=== PATIENT | male | born 1950 | race Caucasian/White ===

== ENCOUNTER → 2017-07-01 | Day surgery (SDC) | payer MEDICARE, OTHER ==
[~2017-07-01] MED LIST: LIDOCAINE 2% INJ 100 MG/5 ML SDV (FOR ANES.) As Ordered; PROPOFOL 200 MG/20 ML VIAL As Ordered
[2017-07-01] MEDS: LR 1,000 ML IV (07:30)
== END | disposition home or self-care (01) ==
LOC: M OPP 07:27
DX: Z12.11 Encounter for screening for malignant neoplasm of colon (principal); Z86.010 Personal history of colon polyps; K57.30 Diverticulosis of large intestine without perforation or abscess without bleeding; Q43.8 Other specified congenital malformations of intestine; E78.5 Hyperlipidemia, unspecified; N40.1 Benign prostatic hyperplasia with lower urinary tract symptoms; Z79.899 Other long term (current) drug therapy
CPT/HCPCS: G0105

== ENCOUNTER → 2018-01-28 | Outpatient (REF) | payer MEDICARE, OTHER | LOC: M SMT 13:33 | DX: R97.20 Elevated prostate specific antigen [PSA] (principal); Z79.899 Other long term (current) drug therapy | CPT/HCPCS: 87086 ==

== ENCOUNTER → 2018-04-29 | Outpatient (CLI) | payer MEDICARE, OTHER | LOC: M LAB 08:57 | DX: R97.20 Elevated prostate specific antigen [PSA] (principal) | CPT/HCPCS: 84154 ==

== ENCOUNTER 2018-07-09 15:56 | Emergency (ER) | payer MEDICARE, OTHER ==
[~2018-07-09] VITALS: Ht 177.8 cm; Wt 79.5 kg
[2018-07-09 15:56] VITALS: BP 145/72
[~2018-07-09 15:56] MED LIST changes: +ATOR1TAB21 PO; -LIDOCAINE 2% INJ 100 MG/5 ML SDV (FOR ANES.) As Ordered; +MULT1TAB10 PO; -PROPOFOL 200 MG/20 ML VIAL As Ordered; +VIAG100T PO
[2018-07-09] MEDS ORDERED: FINA5TAB2 PO (16:07)
[2018-07-09] MEDS ORDERED: ALEV1TAB PO (16:07)
[2018-07-09] MEDS ORDERED: TAMS1CAP17 PO (16:07)
[2018-07-09] MEDS ORDERED: KETOROLAC TROMETHAMINE 10 MG TAB PO ONE (17:45)
[2018-07-09] MEDS ORDERED: CYCLOBENZAPRINE 10 MG TAB PO ONE (17:45)
[2018-07-09] MEDS ORDERED: CYCL10TA PO (17:59)
[2018-07-09] MEDS ORDERED: KETO10TAB PO (17:59)
== END 2018-07-09 18:26 | disposition home or self-care (01) ==
LOC: M ED 15:56
DX: M62.830 Muscle spasm of back (principal); E78.00 Pure hypercholesterolemia, unspecified; N40.0 Benign prostatic hyperplasia without lower urinary tract symptoms; Z79.899 Other long term (current) drug therapy

== ENCOUNTER → 2018-07-15 | Outpatient (CLI) | payer MEDICARE, OTHER ==
[~2018-07-15] MED LIST changes: +ALEV1TAB PO; +CYCL10TA PO; +FINA5TAB2 PO; +KETO10TAB PO; +TAMS1CAP17 PO
--- NOTE | 2018-07-15 11:29 | REP ---
Lumbar spine series: Five views. History: Dorsalgia. The patient reports left SI joint pain. Comparison lumbar spine radiographs are from October 15, 2005. There is also a comparison KUB done during a barium enema from 2011. Findings: There are surgical clips in right upper quadrant consistent with previous cholecystectomy. There is a dextroconvex curve in the lumbar spine and a levoconvex curve at the thoracolumbar junction. There is a new lytic lesion involving the right side of the vertebral body at the L1 level including the right pedicle. There is partial collapse of the L1 vertebral body with approximately 60-70% loss of anterior vertebral body height. No other bony destructive lesion is seen. Pedicles and posterior elements are otherwise intact. There is mild disc space narrowing at L4-5 with early spurring. Sacrum and SI joints appear intact. There is some vascular calcification. Psoas margins are symmetric. Impression: Bony destructive lesion in the L1 vertebral body with partial collapse. New since 2011. Recommend CT scanning of the lumbar spine and radionuclide bone scan for further evaluation. Electronically Signed by Navneet Koch MD 07/15/2018 03:21 P
== END ==
LOC: M WUC 09:29
PROVIDERS: ATTEND Internal Medicine
DX: M54.9 Dorsalgia, unspecified (principal)

== ENCOUNTER → 2018-08-01 | Outpatient (REF) | payer MEDICARE, OTHER ==
[~2018-08-01] MED LIST changes: +D32000TA PO; +FISH5CAP PO; +KELP100T PO; +OXYC1TAB23 PO
[2018-08-02 12:00] LABS: URINE TOTAL PROTEIN 12.2 MG/DL (0-12)
[2018-08-03 11:35] LABS: TOTAL PROTEIN 24 HOUR URINE 146.4 MG/24HR (50-150)
== END ==
LOC: M LAB REF 07:00
PROVIDERS: ATTEND Internal Medicine Medical Oncology
DX: C79.51 Secondary malignant neoplasm of bone (principal)

== ENCOUNTER → 2018-08-03 | Outpatient (CLI) | payer MEDICARE, OTHER ==
[~2018-08-03] MED LIST changes: +DECA4TAB PO; +GASTROGRAFIN SOLUTION 30ML (Q9963) As Ordered ONE; +ISOVUE-370 76% 125ML VIAL (Q9967 PER ML) As Ordered ONE; +PROT20TA11 PO
--- NOTE | 2018-08-03 13:10 | REP ---
CT CHEST WITH IV CONTRAST: TECHNIQUE: Axial contrast enhanced images from the thoracic inlet to the upper abdomen using 100 mL Isovue 370 intravenous contrast material with multiplanar reformations. Relatively large left chest wall mass is seen with destruction of the anterolateral left 6th rib. The mass measures 7.7 x 5.2 cm. It protrudes into the left pleural space. It demonstrates heterogeneous enhancement. There is no axillary, mediastinal, or hilar adenopathy. The heart is normal in size. There is no thoracic aortic aneurysm or dissection. There is no pleural or pericardial effusion. There is mild bronchiectasis in the lungs particularly in the lower lobes. There is a calcified granuloma in the right middle lobe. Note is made of lytic destruction of the L1 vertebral body with collapse as seen on prior CT of 07/21/2018. No other definite osseous lesions are seen. IMPRESSION: Large left chest wall mass with destruction of the left anterolateral 6th rib. This mass protrudes into the left pleural space. It measures 7.7 x 5.2 cm. Lytic destruction and collapse of the L1 vertebral body as seen on prior study of 07/21/2018. No other evidence of mass or adenopathy. Electronically Signed by Alonso Clement MD 08/05/2018 11:45 A
--- NOTE | 2018-08-03 13:46 | REP ---
CT ABDOMEN AND PELVIS WITH ORAL AND IV CONTRAST: TECHNIQUE: Axial contrast enhanced images from the lung bases to the pubic symphysis using 100 mL Isovue 370 intravenous contrast material with multiplanar reformations. The liver demonstrates multiple hypodense nodules which are nonspecific. They are scattered throughout the right and left lobes. The largest is inferiorly located in the right lobe measuring 1.6 cm in diameter. The others are more superiorly located in the right and left lobes and are subcentimeter in diameter. These do not appear to represent cysts, but may represent hemangiomas or other solid nodules. There are tiny calcified granulomas in the spleen. The adrenals, pancreas, and kidneys appear unremarkable. There is no adenopathy in the abdomen or pelvis. There are mild atherosclerotic calcifications of the abdominal aorta without aneurysm. There is no free air or free fluid. I see no bowel wall thickening. No pelvic mass is seen. Prostate is enlarged. It impressed upon the base of the bladder without other definite bladder abnormality. There are lytic lesions in the iliac bones, more so on the left than on the right. The largest oval lytic lesion in the left iliac bone measures 2.8 x 1.4 cm. Again noted is lytic destruction and collapse of the L1 vertebral body as seen on prior CT of 07/21/2018. Patient has had a cholecystectomy. I do not see biliary dilatation. There is sigmoid diverticulosis without acute diverticulitis. IMPRESSION: Nonspecific liver nodules, with six identified, the largest measures 1.6 cm in diameter located in the inferior right lobe of the liver. These do not appear to represent cysts. Further evaluation could be made with dynamic MRI of the liver with and without contrast. No adenopathy. Lytic lesions involving the iliac bones more so on the left than on the right. Again noted is lytic destruction and collapse of the L1 vertebral body as seen on CT of 07/21/2018. Electronically Signed by Alonso Clement MD 08/05/2018 11:47 A
== END ==
LOC: M RAD 10:10
PROVIDERS: ATTEND Internal Medicine Medical Oncology
DX: M89.8X0 Other specified disorders of bone, multiple sites (principal); C79.51 Secondary malignant neoplasm of bone; C80.1 Malignant (primary) neoplasm, unspecified; R91.8 Other nonspecific abnormal finding of lung field; R93.2 Abnormal findings on diagnostic imaging of liver and biliary tract
CPT/HCPCS: 71260; 74177; Q9963; Q9967

== ENCOUNTER → 2018-08-04 | Outpatient (CLI) | payer MEDICARE, OTHER ==
[~2018-08-04] MED LIST changes: -DECA4TAB PO; -GASTROGRAFIN SOLUTION 30ML (Q9963) As Ordered ONE; -ISOVUE-370 76% 125ML VIAL (Q9967 PER ML) As Ordered ONE; +LIDOCAINE 1% MDV 20ML VIAL As Ordered ONE; -PROT20TA11 PO
--- NOTE | 2018-08-04 19:42 | REP ---
ULTRASOUND GUIDED LEFT CHEST WALL MASS BIOPSY The procedure was performed under the direct supervision of Dr. Koch. The patient has a history of a large left chest wall mass with destruction of the left anterolateral sixth rib seen on a previous CT scan dated 08/03/2018. The risks and benefits of the procedure were explained to the patient and informed consent was obtained. The left chest wall mass was localized using ultrasound guidance. The skin was prepped and draped in a sterile fashion. 1% lidocaine was used as a local anesthetic. Using ultrasound guidance a 19/20 gauge coaxial needle biopsy system was inserted and advanced into the mass. Five core biopsy samples were obtained and sent to lab. The patient tolerated the procedure well and there were no immediate complications. After the appropriate amount of monitored convalescence the patient was discharged from the department. Reviewed by TORSTEN Zavala 08/04/2018 03:48 P Electronically Signed by Navneet Koch MD 08/04/2018 07:33 P
== END ==
LOC: M RADPRO 11:19
PROVIDERS: ATTEND Nurse Practitioner Family
DX: R22.2 Localized swelling, mass and lump, trunk (principal); Z79.899 Other long term (current) drug therapy

== ENCOUNTER → 2018-08-18 | Outpatient (CLI) | payer MEDICARE, OTHER ==
[~2018-08-18] MED LIST changes: +DECA4TAB PO; -LIDOCAINE 1% MDV 20ML VIAL As Ordered ONE; +PROT20TA11 PO
--- NOTE | 2018-08-19 08:54 | REP ---
PET/CT: History: Staging exam for multiple myeloma. Thoracic plasmacytoma. Lytic lesions at L1 and iliac bone. Comparisons: Comparison is made with multiple recent imaging studies including plain film CT and MRI imaging of the lumbar spine, CT chest, abdomen, and pelvis. TECHNIQUE: 48 minutes following the intravenous injection of a 9.17 mCi dose of F-18 FDG, three-dimensional PET scintigraphy is acquired from the skull base to the proximal thighs. Triplanar noncontrast CT scanning is acquired through the same anatomic range for attenuation correction, and image registration with scan parameters optimized to minimize radiation exposure to the patient. PET scintigraphy and CT datasets were fused and displayed on a workstation with multiplanar and projection display capability. PET/CT Findings: Head and neck soft tissues are unremarkable. No bony calvarial or intracranial lesion is appreciated. No pulmonary parenchymal hypermetabolic lesion is seen. There is no abnormal hypermetabolic uptake in the liver or within the soft tissues of the abdomen and pelvis. There are multiple bony hypermetabolic foci. It should be noted, that not all of the lesions identified in the skeletal system on other modalities show hypermetabolic uptake. The following areas were identified on other modalities but do not show abnormal uptake on PET scintigraphy: T6, T9, the right iliac bone, L2, the left L3 facet. The following bony lesions are hypermetabolic. The recently biopsied large expansile left 6th rib lesion is hypermetabolic. It shows maximum standard uptake value 8.74. There is a tiny hypermetabolic lytic lesion in the posterior aspect of the left 7th rib near the costovertebral junction which shows maximum standard uptake value mildly elevated at 3.37. The pathologic fracture lesion at L1 vertebral body is hypermetabolic with maximum standard uptake value 4.77. The lytic lesion previously visualized in the left iliac bone is hypermetabolic with maximum standard uptake value of 12.07. Impression: Multiple foci of skeletal hypermetabolic uptake as noted above most consistent with multiple myeloma. Electronically Signed by Navneet Koch MD 08/19/2018 11:08 A
== END ==
LOC: M PLARAD 12:39
PROVIDERS: ATTEND Internal Medicine Medical Oncology
DX: C90.00 Multiple myeloma not having achieved remission (principal)
CPT/HCPCS: 78816; A9552

== ENCOUNTER → 2018-09-10 | Outpatient (CLI) | payer MEDICARE, OTHER ==
[~2018-09-10] MED LIST changes: +ACET-683 PO; +ACYC400T PO; +ASPI81TA85 PO; +BACT800T5 PO; +BUPIVACAINE HCL 0.5% 10 ML VIAL As Ordered ONE; +LIDOCAINE 2% MDV 20 ML VIAL As Ordered ONE; +MIDAZOLAM INJ 2 MG/2 ML VIAL (J2250) As Ordered ONE; +OMEG12003 PO; +ONDA8TAB7 PO; +PROC10TA4 PO; +REVL25CA PO; +VITAD1000T PO; +ceFAZolin 1GM INJ (J0690 PER 500MG) As Ordered ONE; +fentaNYL 100 MCG/2 ML INJECTION (J3010) As Ordered ONE
--- NOTE | 2018-09-23 10:55 | REPIR ---
DATE OF PROCEDURE: 09/10/2018 ATTENDING SURGEON: Dr. Maude Malave BINDING MACHINE OPERATOR: PREOPERATIVE DIAGNOSIS: Multiple myeloma. POSTOPERATIVE DIAGNOSIS: Multiple myeloma. PROCEDURE: Ultrasound-guided right internal jugular vein cannulation, fluoroscopic guided right internal jugular vein 23 cm tunneled central venous catheter with subcutaneous port placement. INDICATION: The patient is a 68-year-old male who requires a Port-A-Cath placement for chemotherapy for multiple myeloma. Risks, benefits and alternative treatment options were discussed with the patient. ANESTHESIA: Local with 20 mL of 2% lidocaine mixed 0.5% Marcaine, Ancef 2 grams. COMPLICATIONS: None. DRAINS: None. SPECIMENS: None. IMPLANT: Port-A-Cath. DESCRIPTION OF PROCEDURE: The patient was taken to the angiography suite, placed supine on the angiography room table, and then prepped and draped in a standard surgical fashion. The right internal jugular vein was cannulated using ultrasound guidance. The port was placed in the chest through a pocket created in the right chest. The catheter was tunneled and placed in the superior vena cava right atrial junction through the introducer sheath in the right internal jugular vein. The port was aspirated and noted to aspirate easily, then flushed with heparinized saline. The incisions were closed using #3-0 Monocryl inverted interrupted fashion. Steri-Strips and dressings were applied. The patient tolerated procedure well. All instrument, sponge and needle counts were correct at the end the case. There were no complications. Dr. Malave was present for and directed the entire case. The patient was transferred to the holding area and subsequently discharged in stable condition.
== END | disposition home or self-care (01) ==
LOC: M IRPRO 09:31
PROVIDERS: ATTEND Internal Medicine Medical Oncology
DX: C90.00 Multiple myeloma not having achieved remission (principal)
CPT/HCPCS: 36561; 77001; C1788; C1894; J0690

== ENCOUNTER → 2018-09-11 | Outpatient (CLI) | payer MEDICARE, OTHER ==
[~2018-09-11] MED LIST changes: -ASPI81TA85 PO; -BUPIVACAINE HCL 0.5% 10 ML VIAL As Ordered ONE; -LIDOCAINE 2% MDV 20 ML VIAL As Ordered ONE; -MIDAZOLAM INJ 2 MG/2 ML VIAL (J2250) As Ordered ONE; -ceFAZolin 1GM INJ (J0690 PER 500MG) As Ordered ONE; -fentaNYL 100 MCG/2 ML INJECTION (J3010) As Ordered ONE
--- NOTE | 2018-09-13 09:34 | ECHO ---
DATE OF PROCEDURE: 09/11/2018 REFERRING PROVIDER: Dr. Hawa Self. PATIENT LOCATION: Outpatient. REASON FOR ECHOCARDIOGRAM: Malignant neoplasm of the bone. Pre chemotherapy drug monitoring. 2D MEASUREMENT: IVS - 0.9 cm LV - 3.5 cm LVPW - 0.9 cm LA - 3.2 cm Aorta - 2.8 IVC - 2.1 cm DOPPLER MEASUREMENT: Peak velocity across the aortic valve - 1.2 m/s Peak velocity across the LVOT - 1.1 m/s Mitral E - 0.48, Mitral A - 0.59 with a ratio of 0.8 Maximum tricuspid valve velocity - 1.8 m/s 2D COMMENTS: 1. Normal left ventricular size, wall thickness, and normal global left ventricular systolic function. The estimated left ventricular systolic ejection fraction is 60-65%. 2. Normal left atrium. Normal right atrium and right ventricle. 3. The atrial septum appeared to be normal without evidence of defect or shunt. 4. Normal aortic root. 5. No pericardial effusion seen. 6. Minimally calcified aortic valve with normal leaflet excursion. Normal mitral valve, tricuspid valve, and pulmonic valve. The proximal pulmonary artery branches were not well visualized. 7. The inferior vena cava was mildly enlarged by with good respiratory variation. DOPPLER: It detects trace aortic regurgitation, mild mitral regurgitation, and trace tricuspid regurgitation. The calculated pulmonary artery systolic pressure was normal, less than 30 mmHg. Abnormal relaxation pattern was noted across the mitral valve leaflets as well as the mitral valve annulus consistent features of left ventricular diastolic dysfunction, grade 1. IMPRESSION: 1. Normal global left ventricular systolic function. There are some features of left ventricular diastolic dysfunction, impaired relaxation. 2. Aortic valve sclerosis with trace aortic regurgitation. 3. Mild mitral regurgitation. 4. Trace tricuspid regurgitation with a normal calculated pulmonary artery systolic pressure. 5. The global left ventricular strain was reported to be 18%. MTDD
== END ==
LOC: M CARPUL 10:48
PROVIDERS: ATTEND Internal Medicine Medical Oncology
DX: C79.51 Secondary malignant neoplasm of bone (principal); I34.0 Nonrheumatic mitral (valve) insufficiency; I35.0 Nonrheumatic aortic (valve) stenosis; I36.1 Nonrheumatic tricuspid (valve) insufficiency

== ENCOUNTER → 2018-09-21 | Outpatient (CLI) | payer MEDICARE, OTHER ==
[~2018-09-21] MED LIST changes: +ASPI81TA85 PO
--- NOTE | 2018-09-21 13:30 | REP ---
Right lower extremity Duplex Doppler venous ultrasound: Real time compression and duplex Doppler interrogation of the right lower extremity deep venous system is performed. The right common femoral, superficial femoral and popliteal veins are fully compressible with transducer pressure and demonstrate normal spontaneous and phasic flow, without evidence of deep venous thrombosis. Impression: No evidence of deep venous thrombosis of the right lower extremity femoral popliteal venous system. In the proximal thigh soft tissues is a nonspecific intramuscular mass with areas of calcification measuring 6.5 x 2.1 x 2.2 cm. Electronically Signed by Alonso Clement MD 09/21/2018 01:20 P
== END ==
LOC: M RAD 12:05
PROVIDERS: ATTEND Internal Medicine Medical Oncology
DX: R22.41 Localized swelling, mass and lump, right lower limb (principal)

== ENCOUNTER → 2018-10-23 | Outpatient (CLI) | payer MEDICARE, OTHER | LOC: M SMT 09:13 | PROVIDERS: ATTEND Nurse Practitioner Family | DX: R97.20 Elevated prostate specific antigen [PSA] (principal) ==

== ENCOUNTER → 2018-10-27 | Outpatient (REF) | payer MEDICARE, OTHER | LOC: M SMT 17:38 | PROVIDERS: ATTEND Nurse Practitioner Family | DX: R97.20 Elevated prostate specific antigen [PSA] (principal); R39.11 Hesitancy of micturition | CPT/HCPCS: 51798; 87086; G0463 ==

== ENCOUNTER → 2018-10-29 | Outpatient (CLI) | payer MEDICARE, OTHER | LOC: M SMT 09:55 | PROVIDERS: ATTEND Nurse Practitioner Family | DX: R97.20 Elevated prostate specific antigen [PSA] (principal) ==

== ENCOUNTER → 2018-11-12 | Outpatient (CLI) | payer MEDICARE, OTHER ==
[~2018-11-12] MED LIST changes: +ISOVUE-370 76% 100ML VIAL (Q9967) As Ordered ONE
--- NOTE | 2018-11-12 12:18 | REP ---
Clinical: History of multiple myeloma. Technique: Axial contrast enhanced images from the thoracic inlet to the upper abdomen with coronal and sagittal re-formations using 100 ml Isovue 370 intravenous contrast material. Comparison: 08/03/2018. Findings: Left lateral pleural-based mass which appears to arise from the lateral aspect of the sixth rib measures 4.8 x 2.9 x 4.9 cm and is considerably decreased in size from prior examination. The bilateral lung hernandes are otherwise well aerated and clear. No further pulmonary parenchymal consolidation, nodule or mass lesion is appreciated. No mediastinal, hilar or axillary adenopathy is appreciated. The mediastinum demonstrates normal thoracic aorta, pulmonary vasculature and heart/pericardium. Further evaluation of the skeletal structures demonstrate relatively recent postsurgical changes involving the thoracolumbar spine. A 1 cm rounded lesion is identified in the posterior aspect of the left sixth rib which is stable. Impression: 1. Blastic mass extending from the lateral aspect of the left sixth rib is decreased in size. 1 cm lytic lesion in the more posterior aspect of the left rib remains stable. 2. Postoperative changes involving the thoracolumbar spine. 3. No further acute mediastinal or pleuroparenchymal process appreciated. Electronically Signed by Robson Sanabria MD 11/12/2018 12:10 P
== END ==
LOC: M RAD 10:47
PROVIDERS: ATTEND Internal Medicine Medical Oncology
DX: C90.00 Multiple myeloma not having achieved remission (principal)
CPT/HCPCS: 71260; Q9967

== ENCOUNTER → 2018-12-22 | Outpatient (CLI) | payer MEDICARE, OTHER ==
[~2018-12-22] MED LIST changes: -ISOVUE-370 76% 100ML VIAL (Q9967) As Ordered ONE
--- NOTE | 2018-12-23 18:20 | REP ---
REASON: History of multiple myeloma. COMPARISON: 08/18/2018 After the intravenous administration of 9.62 millicuries of FDG [address] was performed from the skull base to the mid thigh. The large area of abnormal hypermetabolism seen in the left chest and involving the left 6th rib has markedly decreased in size, however a large portion of this mass density remains hypermetabolic with SUV values as high as 7.65. There is diffuse hypermetabolic activity seen throughout the bone marrow and involving both the axial and appendicular skeleton. No other areas of abnormal hypermetabolic activity is seen in the neck, chest, abdomen or pelvis. IMPRESSION: 1. 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 A large potion of which, however, remains hypermetabolic. 2. There is diffuse hypermetabolic activity seen throughout the bone marrow which is likely secondary to chemoreactive change, however this could easily obscure a significant new myelomatous site. The patient is currently on chemotherapy. Electronically Signed by Aguilar Lundy DO 12/24/2018 11:08 A
== END ==
LOC: M PLARAD 13:17
PROVIDERS: ATTEND Internal Medicine
DX: C90.30 Solitary plasmacytoma not having achieved remission (principal)
CPT/HCPCS: 78816; A9552

== ENCOUNTER → 2018-12-29 | Outpatient (CLI) | payer MEDICARE, OTHER ==
--- NOTE | 2018-12-29 10:18 | REP ---
SKELETAL SURVEY: 17 views. HISTORY: Restaging. No comparison skeletal survey. Comparison is made with recent PET CT findings of December 22, 2018. FINDINGS: AP and lateral views of the skull show no lytic destructive lesion. There is degenerative spondylosis in the cervical spine. There is diffuse osteopenia. A destructive rib lesion is noted in the left chest involving rib number 6 laterally. No other radiolucent rib lesion is seen. There is an [id number] catheter in place via the right side. The patient is status post thoracolumbar spine fusion. This is done to stabilize a wedge compression deformity and bony destructive lesion at L1. No other fracture or collapse is seen in the vertebral column. No other bony destructive lesion is observed in the spine. No radiolucent bone lesion is seen in the pelvis, either femur, or in either humerus. There is some vascular calcification. IMPRESSION: There are radiolucent lesions consistent with myelomatous involvement in the left 6th rib and in the L1 vertebral body. No other radiolucent bone lesion is appreciated. Electronically Signed by Navneet Koch MD 12/29/2018 07:31 P
== END ==
LOC: M RAD 07:11
PROVIDERS: ATTEND Internal Medicine
DX: C90.00 Multiple myeloma not having achieved remission (principal)

== ENCOUNTER → 2018-12-31 | Outpatient (CLI) | payer MEDICARE, OTHER ==
[~2018-12-31] MED LIST changes: +PROHANCE 279.3MG/ML 15ML VIAL (A9576) As Ordered ONE; +PROHANCE 279.3MG/ML 5ML VIAL (A9576) As Ordered ONE
--- NOTE | 2018-12-31 15:56 | REP ---
MRI OF THE LUMBAR SPINE WITHOUT AND WITH CONTRAST: Clinical indication: Myeloma restaging. Comparison: MRI lumbar spine of 08/07/2018. Technique: MRI of the lumbar spine was performed utilizing axial and sagittal T1 and T2-weighted images precontrast and axial and sagittal postcontrast T1-weighted imaging. A total of 16 mL of ProHance was administered intravenously. Findings: There has been interval lateral lumbar corpectomy at site of the L1 pathologic compression fracture with cage placement at L1 and posterior fusion of T12-L2. Susceptibility related to metallic hardware degrades image quality and reduces the sensitivity for the detection of small lesions. Evaluation of the spinal cord at the surgical level is extremely difficult. Within this limitation, there are sub 5 mm enhancing lesions in the S2 and S3 vertebral bodies and an 8 mm enhancing lesion within the left superior articulating process of L3 which are suspicious for myelomatous disease. No new enhancing lesions are identified. There is normal alignment and curvature of the lumbar spine. The visible portion of the spinal canal is within normal limits. The posterior spinal muscles show postsurgical changes within the upper lumbar spine. Level specific observations. L1-L2: Markedly degree by susceptibility artifact. L2-3: Mild disc bulge. Ligamentum flavum thickening. Apparent narrowing of the neural foramina bilaterally. L3-L4: Diffuse disc bulge. L4-:5: Annular fissure. Mild diffuse disc bulge. L5-S1: Diffuse disc bulge. Bilateral facet arthropathy. Ligamentum flavum thickening. Impression: 1. Interval lateral lumbar corpectomy with L1 cage placement and T12-L2 posterior fusion. The spinal canal cannot be assessed at this level. Within this limitation, there are sub 5 mm enhancing lesions in the S2 and S3 vertebral bodies and an 8 mm enhancing lesion within the left superior articulating process of L3 which are suspicious for myelomatous disease. No new enhancing lesions are identified. 2. Lumbar spondylosis. Electronically Signed by Raquel Chang MD 01/01/2019 08:51 A
--- NOTE | 2018-12-31 16:25 | REP ---
MRI of the thoracic spine without and with contrast Clinical indication: Myeloma, restaging. Comparison: MRI thoracic spine with and without contrast of 08/07/2018. Technique: MRI of the thoracic spine was performed utilizing axial and sagittal T1 and T2-weighted images as well as sagittal STIR imaging precontrast. Following the uneventful intravenous administration 16 mL of ProHance, postcontrast sagittal T1 SPIR was obtained. Concurrent imaging of the cervical and lumbar spine was performed. Findings: There is susceptibility artifact related to T12-L2 metallic fusion hardware, limiting evaluation of the lower thoracic spine. Within this limitation, there is normal alignment of the thoracic spine. There is no significant spinal canal stenosis or neural foraminal compromise. There is a marker placed at the level of T6. There are two subcentimeter STIR hyperintense T1 hypointense enhancing lesions within T6 vertebral body. There is a 2 mm enhancing lesion within the T3 vertebral body posteriorly and inferiorly which. There is an enhancing lesion adjacent to the T9 inferior endplate. These lesions are unchanged. Additionally, there is a 14 x 7 mm ovoid lesion within the posterior aspect of the left sixth rib, best seen on axial image 19, prominent on today's examination. Impression: 1. Enhancing lesion within the posterior aspect of the left sixth rib and the T6, T9 and T3 vertebral bodies, suspicious for myelomatous disease. 2. Previously described 2 mm syrinx better seen on the prior study. 3. No significant spinal canal stenosis or neural foraminal compromise. Electronically Signed by Raquel Chang MD 01/01/2019 09:01 A
--- NOTE | 2018-12-31 18:19 | REP ---
MRI of the cervical spine without and with contrast Indication: Myeloma, restaging. Comparison: Comparison is made with PET/CT of 12/22/2018 and bone survey of 12/29/2018. Technique: MRI of the cervical spine was performed utilizing sagittal T1, STIR, T2 and axial T1 and T2-weighted images precontrast. Following the uneventful intravenous administration of 16 ml ProHance, axial and sagittal T1-weighted imaging was performed. Findings: There is motion artifact which degrades image quality and decreases the sensitivity for the detection of small lesions. Within this limitation, there is a 5 mm rounded T2 hyperintense T1 hypointense enhancing lesion within the right C2 pedicle/facet suspicious for myelomatous involvement. No other lesion identified. There is exaggeration of cervical lordosis. There is 1 mm anterolisthesis of C4 on C5. There is 2 mm anterolisthesis of C5 on C6. There is dextro-curvature of the cervical spine. There is no significant spinal canal stenosis. Impression: 1. 5 mm enhancing lesion within the right C2 pedicle, concerning for myelomatous involvement. 2. 2 mm anterolisthesis of C5 on C6 and 1mm anterolisthesis of C4 on C5 with dextro-curvature of the cervical spine. 3. No significant spinal canal stenosis. Electronically Signed by Raquel Chang MD 01/01/2019 09:05 A
== END ==
LOC: M RAD 09:41
PROVIDERS: ATTEND Internal Medicine
DX: C90.30 Solitary plasmacytoma not having achieved remission (principal)
CPT/HCPCS: 72156; 72157; 72158; A9576

== ENCOUNTER → 2019-01-22 | Outpatient (CLI) | payer MEDICARE, OTHER ==
[~2019-01-22] MED LIST changes: +CHOL100029 PO; -PROHANCE 279.3MG/ML 15ML VIAL (A9576) As Ordered ONE; -PROHANCE 279.3MG/ML 5ML VIAL (A9576) As Ordered ONE; -VITAD1000T PO
--- NOTE | 2019-01-24 13:02 | RADONC ---
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 He had 3% plasma cells on an August 2018 diagnostics bone marrow biopsy and is status post L1 corpectomy T12-L2 fusion. He has had four cycles of KRd with evidence of major partial response. He is referred for evaluation of palliative local regional radiotherapy with a potential for a bone marrow transplant in the future. There is residual disease in the left thoracic/chest area. CHART NUMBER: [id number] ICD-10 CODE: C90.00. ECOG PERFORMANCE STATUS: 0. HISTORY OF PRESENT ILLNESS: This patient is a very pleasant 68-year-old man who has been under the care of Dr. Hawa Self for a known lambda restricted multiple myeloma. He has received four cycles of KRd with major partial response as demonstrated by PET and MRI scan. There is a residual focus in the left thoracic plasmacytoma and in isolated vertebral areas. He claims that he was diagnosed because of lower back pain. The pain became so severe in his L1 vertebral body that he had to go to the emergency room where he was prescribed a muscle relaxer and was noted to have an L1 compression fracture. A CT scan revealed the compression fracture and he received a stabilization procedure with fusion in August 2018. He was fused from T12-L2 and he did quite well with this procedure. Most recently Dr. Self has repeated the MRI scan and PET scan and there was a large left-sided thoracic plasmacytoma on previous scans. Following four cycles of KRd therapy the patient has had a significant response. As the response has not been complete she has elected to proceed with an additional cycle of KRd therapy and has discussed this patient's case with Dr. Nuris Mendieta, who agrees that one could consider local regional radiotherapy to the large hyperactive FDG active plasmacytoma and then the patient would be potentially referred for bone marrow transplant. PAST MEDICAL HEALTH: Hyperlipidemia and urinary tract infections from BPH. PAST SURGICAL HEALTH: Cholecystectomy in 2001. ALLERGIES: Unknown. CURRENT MEDICATIONS: Kelp, Atrovastatin, cholecalciferol, finasteride 5 mg daily, fish oil 1200 mg two capsules daily, oxycodone acetaminophen 5/325 one tablet 3-4 times a day (discontinued), Sildenafil 100 mg as needed, tamsulosin 0.4 mg at bedtime. FAMILY HISTORY OF CANCER: His mother of a glioblastoma multiforme and he has a maternal first cousin who also had a glioblastoma multiforme. REVIEW OF SYSTEMS: The patient denies any coughing, dyspnea, hemoptysis, hiccups, but does occasionally have pleuritic pain in the left back. This is presumed to be secondary to his residual plasmacytoma. He denies wheezing. Neurologic: He denies disorientation. dizziness. He does sometimes have an altered gait secondary to back pain. He denies headaches, insomnia, memory loss, neuropathy, paralysis, seizure activity, sensory problems, or stroke. Neck: He has occasional neck pain but denies decreased range of motion, swelling, muscle weakness or masses. Integumentary: Denies alopecia, blisters, bruising, dry skin, facial burning, problems with nails photosensitivity, pruritus, rash or urticaria. Hematologic/lymphatic: Denies easy bruising or lymphadenopathy. Genitourinary: He has a history of dysuria and frequent urinary tract infections. Denies hematuria, impotence, incontinence, nocturia, renal stone disease, scrotal swelling, urgency or urine color changes. Gastrointestinal: Denies changes in bowel habits, constipation, diarrhea, heartburn, dyspepsia, hematemesis, hematochezia, hemorrhoids, melena, nausea, vomiting. He does have some occasional pain still in his back but it is greatly improved. Denies early satiety or vomiting. Endocrine: Denies diabetes, hot flashes, or thyroid disease. Constitutional: Denies decreased appetite or fatigue, fever, lethargy or malaise, night sweats, rigors or chills. He denies having a significant weight change. Cardiovascular: Denies arrhythmias, chest pain, dyspnea, edema, orthopnea, of palpitations. Allergic: Denies allergies or adverse reactions. EXAMINATION FINDINGS: Vitals: Height 69 inches, weight 185.6, temperature 98.2, pulse 67, respirations 18, systolic 116, diastolic 62, O2 saturation 97% on room air. HEENT: Normocephalic. EOMs intact. PERRLA. Fundi benign. Lymphatics: No palpable peripheral lymphadenopathy is appreciated in the cervical, supraclavicular, axillary or inguinal lymph node chains. Lungs: Clear to auscultation and percussion. Heart: Regular without murmurs. Abdomen: Without evidence of hepatomegaly, masses, deep abdominal tenderness. Extremities: Without cyanosis, clubbing or edema. Neurologic: Examination grossly physiologic. IMPRESSION: Lambda restricted multiple myeloma 1q, 14q, 17p deletion with skeletal involvement and a large left thoracic plasmacytoma. He is status post four cycles of KRd therapy and has had a recent PET scan as well as MRI scan which shows a fairly good partial response. He still has a PET avid/FDG-avid left plasmacytoma which has decreased in size but does still appear to be metabolically active. PLAN OF RADIOTHERAPY: Local regional radiotherapy directed to the thoracic left-sided plasmacytoma. Prior to treatment delivery localization will be accomplished upon our CT simulator and treatment portals defined by the use of multiple leaf collimators. The indications, possible side effects as well as alternatives to radiotherapy have been explained in detail to the patient, he understands and is willing to proceed as outlined above. Thank you for allowing us the opportunity of participation in the management of this very fine patient. cc: MD Nuris La MD Scott H. Mitchell, MD MTDD
== END ==
LOC: M ONCR 13:01
PROVIDERS: ATTEND Radiology Radiation Oncology
DX: C90.30 Solitary plasmacytoma not having achieved remission (principal)

== ENCOUNTER → 2019-02-03 | Outpatient (CLI) | payer MEDICARE, OTHER ==
[~2019-02-03] MED LIST changes: +ONDA8TAB10 PO; -ONDA8TAB7 PO
--- NOTE | 2019-02-03 10:15 | PFTRPT ---
Height: 69.00 Inches Weight: 175.00 Lbs BSA: 1.95 Diagnosis: MULTIPLE MYELOMA DATE OF PROCEDURE: 02/03/2019 ORDERED BY: Dr. Self Spirometry: Pre and post bronchodilator study of excellent technical quality. Forced vital capacity normal. FEV1 in proportion. Obstructive index is, therefore, normal. Flow Volume Loop: Expiratory limb of the flow volume loop is normal. No significant bronchodilator response identified. Lung Volumes: Total lung capacity normal. Residual volume is in proportion. Diffusing Capacity: Diffusing capacity, although minimally reduced, does correct for alveolar volume. Hemoglobin: No hemoglobin available for correction. Airway Mechanics: Airway resistance and conductance are normal. IMPRESSION: Probably normal study. MTDD
--- NOTE | 2019-02-04 07:16 | ECHO ---
DATE OF PROCEDURE: 02/03/2019 REFERRING PHYSICIAN: Dr. Hawa Self INDICATION: Prebone marrow transplant, multiple myeloma. HEIGHT: 59 inches. WEIGHT: 175 pounds. 2D MEASUREMENTS: Ventricular septum 0.99 cm Posterior wall 0.99 cm Left ventricle diastole 4.6 cm Left ventricle systole 2.3 cm LVOT 2.0 cm Aortic root 2.6 cm Left atrium 3.8 cm Left atrium volume index 43 Inferior vena cava 2.5 cm with more than 50% respiratory variation. CVP estimated to be 5-10 mmHg. DOPPLER MEASUREMENTS: Trace aortic regurgitation. No aortic stenosis. Aortic valve velocity 151 cm/s LVOT velocity 117 cm/s LVOT VTI 24.2 cm Very mild mitral regurgitation. Mitral E velocity 73.7 cm/s Mitral A velocity 63.5 cm/s Mitral deceleration time 268 ms Mild tricuspid regurgitation. Estimated right ventricle systolic pressure 32-37 mmHg assuming a rate pressure of 5-10 mmHg. MITRAL ANNULAR TISSUE DOPPLER: E-prime septal 7.94 cm/s E-prime lateral 7.72 cm/s DESCRIPTION: Rhythm was sinus. Image quality was good. No pericardial effusion. This is a 2D, M-mode, color flow Doppler and pulsed wave Doppler examination of Mitral annular tissue Doppler. CONCLUSION'S: 1. Normal left ventricle internal dimensions and wall thickness. Normal regional LV wall motion and wall thickening. LVEF 60%, 3D. Normal LV diastolic function for age. 2. Normal right ventricle size and systolic function. Suggestive of mild elevation of right ventricle systolic pressure. 3. Mild aortic valve sclerosis of a 3-cuspid aortic valve.
== END ==
LOC: M CARPUL 08:08
PROVIDERS: ATTEND Internal Medicine Medical Oncology
DX: C90.01 Multiple myeloma in remission (principal); I35.8 Other nonrheumatic aortic valve disorders

== ENCOUNTER → 2019-02-15 | Outpatient (RCR) | payer MEDICARE, OTHER ==
--- NOTE | 2019-02-02 06:42 | RADONC ---
RADIATION ONCOLOGY SIMULATION NOTE DATE: 01/29/2019 CHART #: [id number] Mr. Beasley with a diagnosis of a left chest wall plasmacytoma returns today for simulation. He was placed in a supine position and an immobilization device was created for immobilization during treatment set up and treatment delivery. He tolerated this procedure quite well. Three mm images were obtained through the thoracic area and these will be used for contouring and treatment planning. I was present during the entire simulation. Simulation was tolerated quite well with no significant untoward side effects. MTDD
--- NOTE | 2019-02-10 06:36 | RADONC ---
RADIATION ONCOLOGY PROGRESS NOTE: DATE: 02/09/2019 CHART NUMBER: [id number] Mr. Beasley is presently at a dose of 900 cGy to his left ribs and is tolerating treatments quite well at this point with no complaints related to his radiation therapy. He is having no new pain or discomfort. REVIEW OF SYSTEMS: The patient's review of systems is noncontributory. Denies nausea, vomiting, fevers, chills, night sweats, diplopia, headaches, anxiety or depression, anorexia, weight loss, visual disturbances, chest pain, urinary or bowel difficulties, bone pain, or neurological problems. PHYSICAL EXAMINATION: The patient's skin is in good condition with no evidence of radiation change present. There is no moist or dry desquamation. The remainder of his physical exam remains unchanged. Mr. Beasley is tolerating treatments quite well and radiation will continue as scheduled.
[~2019-02-15] MED LIST changes: -ONDA8TAB10 PO; +ONDA8TAB7 PO
--- NOTE | 2019-02-16 08:28 | RADONC ---
RADIATION ONCOLOGY TREATMENT SUMMARY DATE: 02/15/2019 CHART NUMBER: [id number] DIAGNOSIS: Multiple myeloma. ECOG PERFORMANCE STATUS: 0. TREATMENT SUMMARY: Mr. Beasley is a very pleasant 68-year-old white male with the diagnosis of multiple myeloma who presented to us for consideration of palliative radiation therapy to his left ribs. We treated the patient to his left ribs for a total dose of 2400 cGy delivered in eight fractions of 300 cGy each over 11 elapsed days from 02/04/2019 through 02/15/2019. The patient's ribs were treated on a linear accelerator utilizing a 3D conformal technique with 15 MV photons. Mr. Beasley tolerated his treatments without difficulty and was able complete therapy as prescribed. I have scheduled the patient to see me again in 1 month for further followup. He will also continue to be followed by his other physicians as well. cc: MD Nuris La MD Scott H. Mitchell, MD
== END ==
LOC: M ONCR 01-29 12:58
PROVIDERS: ATTEND Radiology Radiation Oncology
DX: C90.00 Multiple myeloma not having achieved remission (principal)

== ENCOUNTER → 2019-04-28 | Outpatient (CLI) | payer MEDICARE, OTHER ==
--- NOTE | 2019-04-28 14:22 | RADONC ---
RADIATION ONCOLOGY FOLLOWUP NOTE DATE: 04/28/2019 CHART NUMBER: [id number] DIAGNOSIS: Multiple myeloma. ECOG PERFORMANCE STATUS: 0 FOLLOW-UP NOTE: Mr. Beasley is a very pleasant 68-year-old white male with the diagnosis of multiple myeloma who is presenting to us today for routine followup visit 2-1/2 months post completion of external beam radiation therapy. The patient presents today reporting that he has completed his transplantation and is doing quite well at this point. He has no complaints at this time related to his radiation therapy or disease. He reports that his pain is totally resolved and overall is feeling well. The patient is scheduled see Dr. Self on Friday and will continue his close followup with his other physicians. REVIEW OF SYSTEMS: The patient's review of systems is noncontributory. He denies nausea, vomiting, fevers, chills, night sweats, diplopia, headaches, anxiety or depression, anorexia, weight loss, visual disturbances, chest pain, urinary or bowel difficulties, bone pain or neurological problems. PHYSICAL EXAMINATION: Physical examination was deferred at this time as I have a cold and did not want to cause this patient any problems considering his present immune status. ASSESSMENT: The patient is doing well at this point. In light of his close management and followup, I have discharged him from my followup except on a p.r.n. basis. The patient does have my cell phone number and office number and he has been instructed to contact me if I could be of any assistance to him whatsoever, or provide him with any information. cc: MD Nuris La MD Scott H. Mitchell, MD
== END ==
LOC: M ONCM 11:46
PROVIDERS: ATTEND Urology
DX: R97.20 Elevated prostate specific antigen [PSA] (principal)

== ENCOUNTER → 2019-04-28 | Outpatient (REF) | payer MEDICARE, OTHER | LOC: M LAB REF 12:14 | PROVIDERS: ATTEND Urology | DX: R97.20 Elevated prostate specific antigen [PSA] (principal) ==

== ENCOUNTER → 2019-04-28 | Outpatient (CLI) | payer MEDICARE, OTHER | LOC: M ONCR 11:11 | PROVIDERS: ATTEND Radiology Radiation Oncology | DX: C90.00 Multiple myeloma not having achieved remission (principal) | CPT/HCPCS: 84153; G0463 ==

== ENCOUNTER → 2019-06-23 | Outpatient (CLI) | payer MEDICARE, OTHER ==
[~2019-06-23] MED LIST changes: +ONDA8TAB10 PO; -ONDA8TAB7 PO; +REVL10CA2 PO
--- NOTE | 2019-06-23 16:00 | REP ---
Whole body radionuclide PET scan for restaging multiple myeloma: Comparison is 12/22/2018. Whole-body scanning is performed from the calvarium to the feet. Head, neck and supraclavicular areas: There are no hypermetabolic foci. This is unchanged. Chest: There is a hypermetabolic focus involving the anterior tip of the left sixth. There is an extension of this focus anteriorly to the pleura . The hypermetabolic activity in this anterior extension has decreased from the prior study, the standard uptake value previously measuring up to 6.8 and standard uptake value today measuring 2.7 . However, there is a posterior extension of the pleura today, not present previously, demonstrating a standard uptake value of 5.90. There are no other foci in the chest. Abdomen, pelvis and upper thighs: There are no hypermetabolic foci. There is nonspecific bowel uptake. Lower extremities: There are no hypermetabolic foci. This is unchanged. The diffuse skeletal uptake does not appear to be as intense as previously. Impression: The patient's known hypermetabolic focus at the anterior end of the left sixth rib demonstrates decreasing hypermetabolic activity in its anterior extension into the pleura. However, there is a new posterior extension onto the pleura demonstrating hypermetabolic uptake. There are no other hypermetabolic foci. The study is performed with 9.1 mCi of F 18 FDG. Electronically Signed by Alonso Marti MD 06/23/2019 03:51 P
== END ==
LOC: M PLARAD 07:31
PROVIDERS: ATTEND Internal Medicine Medical Oncology
DX: R91.8 Other nonspecific abnormal finding of lung field (principal); C90.00 Multiple myeloma not having achieved remission
CPT/HCPCS: 78816; A9552

== ENCOUNTER → 2019-06-29 | Outpatient (CLI) | payer MEDICARE, OTHER ==
[~2019-06-29] MED LIST changes: +ASPI81CH33 PO
--- NOTE | 2019-06-30 10:34 | RADONC ---
RADIATION ONCOLOGY CONSULTATION REPORT DATE OF CONSULTATION: 06/29/2019 CHART NUMBER: [id number]. ICD-10 CODE: C90,00. ECOG PERFORMANCE STATUS: 0. DIAGNOSIS: Lambda light chain multiple myeloma R-ISS II, deletion 17p, 1q, 14q. Mr. Beasley is a 69-year-old pleasant gentleman. Last year, he developed a low back pain which became severe he had to go ER in early 2018. CT revealed compression fracture L1. he uderwent fusion T12-L2 in August 2018 and did quite well. He said that he has experienced discomfort in the last 3-4 years in the left chest, especially with coughing, which he did not pay attention to it. However, around January, he had further evaluation with MRI and PET CT, which showed large left-sided thoracic plasmacytoma, and he received five cycles of KRD from August 2018 to February 11, 2019, and he also received radiation therapy to the left chest wall mass in January 2019. Following, he continued with melphalan and underwent autologous stem cell rescue on March 02, 2019, and followed by [facility] clinical trial, He was experiencing muffling of the left ear HBO and he was evaluated by ENT, and the tube was placed in the left ear with improvement. Most recent PET CT on June 23, 2019, and it was compared prior PET CT on December 22, 2018, and it shows previous hypermetabolic activity focus at the anterior end of the left sixth rib demonstrate decreasing hypermetabolic activity in its anterior extension into the pleura. However, there is a new posterior extension onto the pleura demonstrating hypermetabolic uptake. There are no other hypermetabolic foci. He was started on melphalan, and he was here for evaluation radiation therapy of a new focus in the left chest. PAST MEDICAL HISTORY: Hyperlipidemia. UTI from BPH. PAST SURGICAL HISTORY: Cholecystectomy 2001. As mentioned, biopsies of the left axillary mass and the bone marrow biopsies. CURRENT MEDICATIONS: Are atorvastatin, cholecalciferol , finasteride 5 mg daily, fish oil. FAMILY HISTORY: Of cancer. Mother of glioblastoma multiforme and has maternal first cousin who had glioblastoma multiforme. REVIEW OF SYSTEMS: Constitutional: Denies fever, chills, sweats, fatigue, or weight changes. HEENT: The ear muffling on the left ear, much improved. No hearing problems. Respiratory: Denies cough, dyspnea, hemoptysis, or wheezing. Cardiovascular: Denies chest pain, palpitations. Gastrointestinal: Denies nausea, vomiting, constipation, bleeding, or GERD. Genitourinary: Denies urinary frequency, burning, hematuria, or dysuria. Musculoskeletal: Denies skeletal pain, joint swelling. Skin: Denies rash, ecchymosis, petechiae, or jaundice. Neurological: Denies headache, weakness, or sensory deficit. Extremities: There is no swelling, cyanosis. PHYSICAL EXAMINATION: In general, he appears to be in good general condition, is not in apparent distress. He is alert and oriented. HEENT: Normocephalic. No scleral icterus. Lungs: Clear to auscultation. No wheezing or rales. Cardiac: Regular rhythm and rate. Abdomen: Is soft, nontender, nondistended without any palpable mass, organomegaly. Extremities: No edema, cyanosis. Lymph nodes: There are no palpable lymphadenopathies in the neck, axilla bilaterally. X-RAY FINDINGS: Whole body PET scan, for restaging in comparison with previous one on December 22, 2018, reported known hypermetabolic focus at the anterior end of the left sixth rib demonstrate decreasing hypermetabolic activity in its anterior extension into the pleura. However, there is a new posterior extension onto the pleura demonstrating hypermetabolic uptake. There is no other hypermetabolic foci. LAB: On June 24, 2019, WBC 7.1, RBC 3.89, hemoglobin 11.3, hematocrit 30.6. ASSESSMENT AND THE RECOMMENDATION: This 69-year-old gentleman had a diagnosis of lambda light chain multiple myeloma diagnosed in July 2018, R-ISS stage II, and he was treated with KRD times five from August 2018 to February 11, 2019, and he also received radiation therapy to the left chest wall mass. He underwent autologous stem cell rescue on March 02, 2019. The followup PET CT on June 23, 2019, reported decreasing hypermetabolic activity in the previous hypermetabolic lesion in the left sixth rib in the anterior extension. However, there was a new posterior extension into the pleura demonstrating hypermetabolic activity. There are no other hypermetabolic foci. The patient restarted melphalan maintenance chemotherapy about a couple weeks ago, and they recommended local radiation therapy to the new lesion in the left chest. I discussed with the patient and his his main treatment will be still systemic treatment, and the radiation therapy is local treatment and has palliative role. the palliative roles, He has no symptoms at this time however there is no other disease other than the newly-developed lesion in the left chest, I am agreeable local radiation therapy dose of 2500 to 3000 cGy in 250 daily fractions. I will utilize fuson with PET and previous trreatment hernandes. I discussed procedures and the potential side effect associated with the treatment. I have given them a chance to ask questions and concerns, and they were answered to their satisfaction. MTDD
== END ==
LOC: M ONCR 12:53
PROVIDERS: ATTEND Radiology Radiation Oncology
DX: C90.30 Solitary plasmacytoma not having achieved remission (principal); E78.5 Hyperlipidemia, unspecified; Z80.8 Family history of malignant neoplasm of other organs or systems

== ENCOUNTER 2019-07-06 13:54 | Outpatient (RCR) | payer MEDICARE, OTHER ==
[2019-07-08] MEDS ORDERED: VITA1CHW7 PO (08:35)
[2019-07-12] MEDS ORDERED: REVL10CA2 PO (16:03)
== END 2019-07-17 ==
LOC: M ONCR 13:54
PROVIDERS: ATTEND Radiology Radiation Oncology
DX: C90.00 Multiple myeloma not having achieved remission (principal)

== ENCOUNTER 2019-08-04 13:35 | Outpatient (RCR) | payer MEDICARE, OTHER ==
--- NOTE | 2019-07-20 14:23 | RADONC ---
RADIATION ONCOLOGY PROGRESS NOTE DATE: 07/19/2019 CHART #: [id number] Mr. Beasley was taken to the linear accelerator today and underwent his first fraction of radiation to his left ribs. It was tolerated without difficulty or discomfort. REVIEW OF SYSTEMS: The patient's review of systems is positive for some rib pain, but is otherwise noncontributory. Denies nausea, vomiting, fevers, chills, night sweats, diplopia, headaches, anxiety or depression, anorexia, weight loss, visual disturbances, chest pain, urinary or bowel difficulties, bone pain, or neurological problems. PHYSICAL EXAMINATION: The patient's skin clearly shows no evidence of radiation change present from the present field since this was his first fraction. The remainder of his physical exam remains unchanged. Mr. Beasley tolerated his first fraction well and radiation will continue as scheduled.
--- NOTE | 2019-07-28 07:20 | RADONC ---
RADIATION ONCOLOGY PROGRESS NOTE DATE: 07/26/2019 CHART NUMBER: [id number] Mr. Beasley is presently a dose of 1200 cGy to his left ribs and is tolerating treatments quite well at this point with no complaints related to his radiation therapy. He is having no rib pain or other problems. REVIEW OF SYSTEMS: The patient's review of systems is noncontributory. He denies nausea, vomiting, fevers, chills, night sweats, diplopia, headaches, anxiety or depression, anorexia, weight loss, visual disturbances, chest pain, urinary or bowel difficulties, bone pain or neurological problems. PHYSICAL EXAMINATION: The patient's skin is in excellent condition with no evidence of moist or dry desquamation. The remainder of his physical exam remains unchanged. Mr. Beasley is tolerating treatments quite well and radiation will continue as scheduled.
--- NOTE | 2019-08-03 11:15 | RADONC ---
RADIATION ONCOLOGY PROGRESS NOTE DATE: 08/02/2019 CHART #: [id number] Mr. Beasley with a diagnosis of multiple myeloma is currently receiving local regional radiotherapy for palliation. He underwent a stem cell transplant and was then later noted to have active disease again in a left rib area. This is the area for which he is presently receiving treatment and treatments are going well. He denies significant pain, nausea, vomiting, coughing, sputum production or hemoptysis. He has no new areas of pain. His energy level is diminished, but he is able to maintain many day-to-day activities without too much difficulty. EXAMINATION FINDINGS: The skin within the irradiated volume shows no changes thus far. There is no palpable lymphadenopathy. The remainder of the physical examination is unchanged. IMPRESSION: Tolerating therapy well. PLAN: Treatments to continue to completion. He has only two more treatments left to complete his entire prescribed dose of radiotherapy. Will follow.
[~2019-08-04 13:35] MED LIST changes: +VITA1CHW7 PO
--- NOTE | 2019-08-05 07:37 | RADONC ---
RADIATION THERAPY TREATMENT SUMMARY DATE: 08/04/2019 CHART NUMBER: [id number] DIAGNOSIS: Light chain multiple myeloma R1 SS1, deletion 17p and 14g. STAGE: Multiple myeloma. PLAN OF RADIOTHERAPY: Palliation because of activity in the posterior left pleural area. DATE RADIOTHERAPY STARTED: 07/19/2019. DATE RADIOTHERAPY COMPLETED: 08/04/2019. DOSE: The patient received a total of 2400 cGy administered in 12 fractions over 17 elapsed days. Prior to treatment delivery localization was accomplished upon our CT simulator and treatment portals were defined by the use of multiple leaf collimators. A 3D conformal radiotherapy technique was employed for treatment utilizing a 15 MV photon beam 100 cm SAD isocenter technique. The 2400 cGy total dose was assessed at the 95% isodose line. STATUS OF TUMOR: There was no clinical evidence of further progressive disease during his course of radiotherapy tolerance and general treatments were quite well tolerated. He denied any nausea, vomiting, coughing, sputum production, hemoptysis or pain. His energy level remained diminished as anticipated, but he was still able to maintain many day-to-day activities without any alteration of his lifestyle. He denied skin irritation. DISPOSITION: Return to clinic in 1 month or as needed and he was advised to return to his referring physicians as per their directions and instructions. Thank you for allowing us the opportunity of participation in the management of this very fine patient.
[2019-08-10] MEDS ORDERED: REVL10CA2 PO (14:46)
[2019-08-19] MEDS ORDERED: TUMS500C PO (08:28)
== END 2019-08-17 ==
LOC: M ONCR 13:35
PROVIDERS: ATTEND Radiology Radiation Oncology
DX: C90.00 Multiple myeloma not having achieved remission (principal)

== ENCOUNTER → 2019-08-25 | Outpatient (CLI) | payer MEDICARE, OTHER ==
[~2019-08-25] MED LIST changes: +TUMS500C PO
== END ==
LOC: M LABSMTC 11:46
PROVIDERS: ATTEND Family Medicine
DX: Z11.59 Encounter for screening for other viral diseases (principal); Z20.828 Contact with and (suspected) exposure to other viral communicable diseases

== ENCOUNTER → 2019-09-08 | Outpatient (CLI) | payer MEDICARE, OTHER ==
[~2019-09-08] MED LIST changes: +CYCL-707 PO; -CYCL10TA PO
--- NOTE | 2019-09-08 13:52 | RADONC ---
RADIATION ONCOLOGY FOLLOWUP NOTE DATE OF SERVICE: 09/08/2019 This is a telemedicine visit. The patient was informed of the risks including security breech, technological failure, inability to perform a comprehensive physical exam which could delay or prevent an accurate diagnosis, and potential complications from treatment decisions rendered over a telemedicine platform. The patient understands and consented to the use of telehealth services. Phone only. CHART NUMBER: [id number]. DIAGNOSIS: Multiple myeloma. ECOG PERFORMANCE STATUS: 0. FOLLOWUP NOTE: Mr. Beasley is a very pleasant 69-year-old white male with the diagnosis of multiple myeloma who is presenting to me today for telephone consultation 1 month postcompletion of external beam radiation therapy to his left ribs. The patient is presenting saying that his rib pain is totally resolved and he feels good at this point. REVIEW OF SYSTEMS: His review of systems is noncontributory. He denies nausea, vomiting, fevers, chills, night sweats, diplopia, headaches, anxiety or depression, anorexia, weight loss, visual disturbances, chest pain, urinary or bowel difficulties, bone pain, or neurological problems. PHYSICAL EXAMINATION: Physical examination was deferred as per COVID-19 precautions. This was a telephone followup visit. ASSESSMENT: The patient is clinically doing quite well. He is scheduled to see his medical oncologist, Dr. Hawa Self, next week and will continue his close followup and management through medical oncology. He is being discharged from our followup except on a p.r.n. basis. cc: MD Nuris La MD Scott H. Mitchell, MD
== END ==
LOC: M ONCR 13:31
PROVIDERS: ATTEND Radiology Radiation Oncology
DX: C90.00 Multiple myeloma not having achieved remission (principal); D72.822 Plasmacytosis

== ENCOUNTER → 2019-11-10 | Outpatient (CLI) | payer MEDICARE, OTHER ==
[~2019-11-10] MED LIST changes: +AMOX500C PO; -ASPI81TA85 PO; +ASPI81TA86 PO; +MIXE1CAP PO; +PENT400T47 PO; +POTA50TAB PO; +TUMS750C5 PO; +amoxicillin
--- NOTE | 2019-11-10 12:16 | REP ---
Four views mandible: 11/10/2019. Indication: Protruding bone. Comparison: None. Findings: There is no acute fracture, subluxation or dislocation. No definite osseous deformity is detected by this technique. The visualized paranasal sinuses are essentially clear. Impression: No osseous abnormality detected. If clinically indicated, CT of the facial bones could be performed for further evaluation. 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 Electronically Signed by Jose Carlos Huerta DO 11/10/2019 12:07 P
== END ==
LOC: M RAD 10:31
PROVIDERS: ATTEND Internal Medicine Medical Oncology
DX: C41.9 Malignant neoplasm of bone and articular cartilage, unspecified (principal)

== ENCOUNTER → 2019-12-14 | Outpatient (CLI) | payer MEDICARE, OTHER ==
--- NOTE | 2020-02-07 10:28 | REP ---
WHOLE BODY PET/CT SCAN FOR FOLLOWUP OF MULTIPLE MYELOMA Delay in reporfting results from hospital computer malfunction as a result of malware. COMPARISON STUDY: 12/22/2018. TECHNIQUE: Whole body scanning is performed from the vertex of the calvaria to the feet, as previously. FINDINGS: HEAD, NECK, AND SUPRACLAVICULAR AREAS: There are no hypermetabolic foci. CHEST: There are two tiny borderline hypermetabolic foci inferolaterally in the right deltoid as an interval change. Maximal standard uptake value measures approximately 4.5. This appears to be in the muscular soft tissues, not within the skeletal tissues. The patient has a known, slightly expansile lesion in the left sixth rib as previously. There is no hypermetabolic activity within the expansile rib lesion. The standard uptake value maximally measures 1.9. There is extension from this expansile sixth rib lesion to the adjacent pleura anteriorly and posteriorly. There is no hypermetabolic activity in the anterior extension, the maximal standard uptake value is 2.1. The posterior extension has significantly decreased in size and there is no hypermetabolic uptake in the posterior extension, the maximal standard uptake value today measuring 2.60. There are no other foci in the chest. ABDOMEN, PELVIS, AND UPPER THIGHS: There are no hypermetabolic foci. There is nonspecific bowel uptake. LOWER EXTREMITIES: There are no hypermetabolic foci. This is unchanged. IMPRESSION: The known mildly expansile lesion in the lateral aspect of the left sixth rib is unchanged. There is no hypermetabolic activity. The anterior and posterior extension along the pleura from this rib lesion today demonstrated no hypermetabolic activity. There are new small foci of slightly hypermetabolic activity in the soft tissues of the right deltoid muscle, an interval change, of uncertain significance. This may be from recent trauma. There are no other hypermetabolic foci. The study is performed with 8.0 mCi of F18 FDG. MTDD
== END ==
LOC: M PLARAD 08:00
PROVIDERS: ATTEND Specialist
DX: C90.00 Multiple myeloma not having achieved remission (principal)
CPT/HCPCS: 78816; A9552

== ENCOUNTER → 2020-04-18 | Outpatient (REF) | payer MEDICARE, OTHER ==
[~2020-04-18] MED LIST changes: +POTA10808 PO
== END ==
LOC: M LAB REF 10:56
PROVIDERS: ATTEND Urology
DX: Z87.898 Personal history of other specified conditions (principal)

== ENCOUNTER → 2021-02-26 | Outpatient (CLI) | payer MEDICARE, OTHER ==
[~2021-02-26] MED LIST changes: +ACYC1TAB PO; -ACYC400T PO; +AUGM875T28 PO; +D31000TA2 PO
--- NOTE | 2021-02-27 13:06 | REP ---
INDICATION: Multiple myeloma/extra medullary plasmacytoma COMPARISON: 12/14/2019 the latest prior PET-CT and 11/12/[address] of the chest TECHNIQUE: After the intravenous administration of 9.66 mCi of FDG 18 triplane whole-body PET-CT was performed whole-body. FINDINGS: Once again, there is hypermetabolic activity seen in the mandible on the left and in the left salivary gland. This has a maximal SUV value of 10.06. The maximal salivary gland SUV value is 2.94. The CT component of today's exam shows no evidence of a soft tissue mass in the floor of the mouth. There is a single focus of hypermetabolic activity seen in the right proximal femur and having a maximal SUV value of 2.73. This is intramedullary. Hypermetabolic activity is also seen in the trochanteric tendono bursal region of each hip having a maximal SUV value on the right of 3.09 and on the left of 2.99. No other abnormal hypermetabolic foci are seen in the neck, chest, abdomen, or pelvis. IMPRESSION: 1. There is head and neck hypermetabolic activity, as described above, but this does not appear to have changed significantly compared to the prior exam. Consider further evaluation with MRI. 2. There is new intramedullary hypermetabolic activity seen in the right proximal femur as described above. 3. There is hypermetabolic activity seen in the trochanteric tendono bursal region of each hip and likely secondary to trochanteric tendono bursitis. <Electronically signed by Aguilar Lundy > 02/27/21 1965
== END ==
LOC: M PLARAD 14:14
PROVIDERS: ATTEND Internal Medicine Hematology
DX: R93.89 Abnormal findings on diagnostic imaging of other specified body structures (principal); C90.00 Multiple myeloma not having achieved remission
CPT/HCPCS: 78816; A9552

== ENCOUNTER → 2021-03-12 | Outpatient (CLI) | payer MEDICARE, OTHER ==
[~2021-03-12] MED LIST changes: +ISOVUE-370 76% 100ML VIAL As Ordered ONE
--- NOTE | 2021-03-12 09:31 | REP ---
INDICATION: EVAL SALIVARY GLAND, LT MANDIBLE- CT AFTER. COMPARISON: 12/29/2018 TECHNIQUE: Multiple views FINDINGS: AP lateral skull: There is no evidence of a lytic or blastic lesion. There is no change from the prior exam. AP and lateral views cervical spine: Hypertrophic degenerative facet and uncovertebral joints are present at every level bilaterally status quo. There is degenerative disc space narrowing at every level status quo. Vertebral body height and alignment is unchanged. No lytic or blastic osseous lesions have developed. AP lateral views thoracic spine: There has been no significant change from the prior exam. Posterior spinal fixation and vertebral body spinal fixation status quo. No acute abnormalities have developed. AP and lateral views lumbar spine: T12 and L2 posterior spinal fixation with vertebral body fixation T12 to L2 status quo. Destruction of L1 appears unchanged.. AP pelvis: No evidence of an acute lytic or blastic osseous lesion. No change from the prior exam. AP lateral femur bilateral: No acute fracture or destructive osseous lesion. No change from the prior exam. AP view humerus bilateral no significant change from the prior exam. No acute fracture or destructive osseous lesion is identified. Limited views of the ribs again shows a destructive lesion of the 6th rib which appears slightly more dense and somewhat more blastic in appearance. On the AP view of the ribs there is no change in appearance of the tip of the MediPort device remaining in the superior vena cava. IMPRESSION: No acute osseous abnormality with findings as described above. <Electronically signed by Aguilar Lundy > 03/12/21 [id number]
--- NOTE | 2021-03-12 09:50 | REPVR ---
PROCEDURE INFORMATION: Exam: CT Neck With Contrast Exam date and time: 03/12/2021 9:19 AM Age: 70 years old Clinical indication: Condition or disease; Other: Multiple myeloma; Additional info: Eval salivary gland, lt mandible- XR first TECHNIQUE: Imaging protocol: Computed tomography images of the neck with contrast. Radiation optimization: All CT scans at this facility use at least one of these dose optimization techniques: automated exposure control; mA and/or kV adjustment per patient size (includes targeted exams where dose is matched to clinical indication); or iterative reconstruction. Contrast material: ISOVUE 370; Contrast volume: 75 ml; Contrast route: INTRAVENOUS (IV); COMPARISON: 1. PET/CT Whole body 02/26/2021 3:34 PM 2. PT PET/CT Whole body 12/14/2019 2:25:06 PM 3. PT PET/CT Whole body 06/23/2019 8:48:25 AM FINDINGS: Paranasal sinuses: The salivary glands are unremarkable. There is no dilatation of the ductal structures. Nasopharynx: Unremarkable. Oropharynx: Unremarkable. No significant tonsillar enlargement. Hypopharynx: Unremarkable. Larynx: Unremarkable. Normal epiglottis. Retropharyngeal space: Unremarkable. Submandibular/Parotid glands: Normal. Glands are normal in size. Thyroid: Normal. No enlarged or calcified nodules. Lymph nodes: Unremarkable. No lymphadenopathy. Trachea: Visualized trachea is unremarkable. Lungs: The visualized portions of the lung apices are normal. Bones/joints: A right convex spinal curve is observed. The spine demonstrates moderate degenerative changes at multiple levels. There is a lytic process of the left mandible related to the the dental root zone involving the premolars and molars. There is no involvement of the mandibular nerve canal. There is relative sclerosis of the left radha mandible body compared to the right which could possibly reflect previous radiation. These bony changes have occurred since the comparison PET CT of 12/14/2019 although there is some increase in FDG activity of the medial left mandible on that study. Soft tissues: See "Bones/joints" finding. Other findings: A right infusion port is present. IMPRESSION: 1. There is a lytic process of the left mandible related to the the dental root zone involving the premolars and molars. There is no involvement of the mandibular nerve canal. There is relative sclerosis of the left radha mandible body compared to the right which could possibly reflect previous radiation. These bony changes have occurred since the comparison PET CT of 12/14/2019 although there is some increase in FDG activity of the medial left mandible on that study. 2. The salivary glands are unremarkable. There is no dilatation of the ductal structures. RECOMMENDATION: Review of treatment records. A Panorex study or reformatting of this current CT study in a simulated Panorex presentation may be helpful. Electronically signed by: Familia Martínez On 03/12/2021 09:50:23 AM
== END ==
LOC: M RAD 08:19
PROVIDERS: ATTEND Specialist
DX: C90.00 Multiple myeloma not having achieved remission (principal); R93.89 Abnormal findings on diagnostic imaging of other specified body structures
CPT/HCPCS: 70491; 77075; Q9967

== ENCOUNTER → 2021-04-23 | Outpatient (REF) | payer MEDICARE, OTHER ==
[~2021-04-23] MED LIST changes: -ISOVUE-370 76% 100ML VIAL As Ordered ONE; +LIDO1CRE42 TOP
== END ==
LOC: M LAB REF 11:54
PROVIDERS: ATTEND Nurse Practitioner Family
DX: R97.20 Elevated prostate specific antigen [PSA] (principal)

== ENCOUNTER → 2021-05-08 | Outpatient (REF) | payer MEDICARE, OTHER ==
[~2021-05-08] MED LIST changes: +FOLTTAB9 PO
[2021-05-09 09:30] LABS: HEPATITIS B SURFACE ANTIBODY NEGATIVE (POSITIVE)
== END ==
LOC: M LAB REF 12:33
PROVIDERS: ATTEND Internal Medicine Infectious Disease
DX: D84.9 Immunodeficiency, unspecified (principal)

== ENCOUNTER 2021-08-20 15:30 | Outpatient (CLI) | payer MEDICARE, OTHER ==
[~2021-08-20] VITALS: Ht 175.3 cm; Wt 77.3 kg
[~2021-08-20 15:30] MED LIST changes: +B-12100010 PO; -D31000TA2 PO; +MELA5CAP2 PO; +ONDA-84 PO; -ONDA8TAB10 PO; +OSTE5TAB PO; -PROC10TA4 PO; +PROC10TA5 PO; +TIXAGEVIMAB/CILGAVIMAB (EVUSHELD) 150MG-150MG 3ML VIAL (EUA) IM NO SITE ONE; +TURM500C PO; +VITA100093 PO
[2021-08-20 15:35] VITALS: BP 148/78
[2021-08-20 17:00] VITALS: BP 147/79
== END 2021-08-20 17:00 | disposition home or self-care (01) ==
LOC: M INFU 15:30
PROVIDERS: ATTEND Internal Medicine Infectious Disease
DX: C90.00 Multiple myeloma not having achieved remission (principal)

== ENCOUNTER 2022-01-18 13:14 | Emergency (ER) | payer MEDICARE, OTHER ==
[~2022-01-18] VITALS: Ht 175.3 cm; Wt 77.3 kg
[~2022-01-18 13:14] MED LIST changes: -TIXAGEVIMAB/CILGAVIMAB (EVUSHELD) 150MG-150MG 3ML VIAL (EUA) IM NO SITE ONE
[2022-01-18 14:36] LABS: BASO % 0.2 % (0.0-1.0); EOS # 0.1 10^3/uL (0.0-0.5); EOS % 1.7 % (0.0-3.0); HEMATOCRIT 29.1 % (42.0-52.0); HEMOGLOBIN 9.6 g/dl (13.5-17.5); LYMPH # 0.2 10^3/uL (1.5-5.0); LYMPH % 3.4 % (24.0-44.0); MEAN CORPUSCULAR HEMOGLOBIN 32.2 pg (27.0-33.0); MEAN CORPUSCULAR VOLUME 97.7 fl (80.0-96.0); MONO # 0.6 10^3/uL (0.0-0.8); MONO % 12.5 % (2.0-8.0); NEUTROPHILS # 3.9 10^3/uL (1.5-8.5); NEUTROPHILS % 81.6 % (36.0-66.0); RED BLOOD COUNT 2.98 10^6/uL (4.30-6.10); WHITE BLOOD COUNT 4.7 10^3/uL (4.0-10.0)
[2022-01-18 15:00] LABS: PLATELET COUNT, AUTOMATED 80 10^3/uL (150-450)
[2022-01-18 15:11] LABS: ALT/SGPT 116 U/L (12-78); BILIRUBIN,DIRECT 0.4 MG/DL (0.0-0.2); BILIRUBIN,TOTAL 1.3 MG/DL (0.2-1.0); BLOOD UREA NITROGEN 19 MG/DL (7-18); CALCIUM LEVEL 8.4 MG/DL (8.8-10.2); CARBON DIOXIDE LEVEL 22 MEQ/L (21-32); CHLORIDE LEVEL 110 MEQ/L (98-107); CREATININE FOR GFR 1.05 MG/DL (0.70-1.30); GLOMERULAR FILTRATION RATE > 60.0 (>42); GLUCOSE, FASTING 90 MG/DL (70-100); NT-PRO BNP 2509 PG/ML (<125); POTASSIUM SERUM 3.7 MEQ/L (3.5-5.1); SODIUM LEVEL 140 MEQ/L (136-145); TOTAL PROTEIN 5.1 GM/DL (6.4-8.2)
[2022-01-18] MEDS ORDERED: NS 1,000 ML IV ONE (16:50)
[2022-01-18] MEDS ORDERED: ISOVUE-370 76% 100ML VIAL As Ordered ONE (16:56)
[2022-01-18 18:45] VITALS: BP 112/55
== END 2022-01-18 19:07 | disposition home or self-care (01) ==
LOC: M ED 13:14
DX: R19.7 Diarrhea, unspecified (principal); R53.1 Weakness; R06.02 Shortness of breath; E78.5 Hyperlipidemia, unspecified; N40.0 Benign prostatic hyperplasia without lower urinary tract symptoms; Z85.46 Personal history of malignant neoplasm of prostate; Z79.899 Other long term (current) drug therapy; Z79.82 Long term (current) use of aspirin
CPT/HCPCS: 71045; 71275; 80048; 80076; 83880; 84436; 84443; 85025; 85049; 85055; 86850; 86900; 86901; 93005; 93041; 94760; 99285; J1642; Q9967

== ENCOUNTER → 2022-01-21 | Outpatient (REF) | payer MEDICARE, OTHER | LOC: M LAB REF 04:00 | PROVIDERS: ATTEND Emergency Medicine | DX: R19.7 Diarrhea, unspecified (principal) ==

== ENCOUNTER 2022-02-15 07:52 | Outpatient (CLI) | payer MEDICARE, OTHER ==
[~2022-02-15] VITALS: Ht 175.3 cm; Wt 75.0 kg
[~2022-02-15 07:52] MED LIST changes: +BENZ200C70 PO; +IRON240T PO
[2022-02-15 07:56] VITALS: BP 121/59
[2022-02-15] MEDS ORDERED: IMMUNE GLOBULIN 10% 20 GM in IV 1 EA IV ONE (08:00)
[2022-02-15] MEDS ORDERED: IMMUNE GLOBULIN 10% 10 GM in IV 1 EA IV ONE (08:00)
[2022-02-15] MEDS ORDERED: ACETAMINOPHEN TAB 650MG DOSE (2X325MG) PO ONE (08:00)
[2022-02-15] MEDS ORDERED: FAMOTIDINE 20 MG TAB PO ONE (08:00)
[2022-02-15] MEDS ORDERED: SODIUM CHLORIDE 0.9% INJ 10 ML SYR IV PRN (08:45)
[2022-02-15] MEDS ORDERED: diphenhydrAMINE 50MG/ML VIAL (J1200) IV ONE (08:45)
[2022-02-15] MEDS ORDERED: SODIUM CHLORIDE 0.9% INJ 10 ML SYR IV SCH (09:00)
[2022-02-15 09:30] VITALS: BP 117/67
[2022-02-15 10:00] VITALS: BP 106/59
[2022-02-15 10:30] VITALS: BP 104/59
[2022-02-15 11:00] VITALS: BP 113/69
[2022-02-15 12:00] VITALS: BP 108/70
== END 2022-02-15 12:15 | disposition home or self-care (01) ==
LOC: M INFU 07:52
PROVIDERS: ATTEND Specialist
DX: C90.00 Multiple myeloma not having achieved remission (principal)
CPT/HCPCS: 96365; 96366; 96375; J1200; J1459; J1642

== ENCOUNTER 2022-03-14 08:29 | Inpatient (IN) | payer MEDICARE, OTHER ==
[~2022-03-14] VITALS: Ht 175.3 cm; Wt 71.7 kg
[2022-03-14 09:25] LABS: BASO % 0.6 % (0.0-1.0); EOS # 0.1 10^3/uL (0.0-0.5); EOS % 2.1 % (0.0-3.0); HEMATOCRIT 32.3 % (42.0-52.0); HEMOGLOBIN 10.6 g/dl (13.5-17.5); LYMPH # 0.4 10^3/uL (1.5-5.0); LYMPH % 6.6 % (24.0-44.0); MEAN CORPUSCULAR HEMOGLOBIN 30.7 pg (27.0-33.0); MEAN CORPUSCULAR HGB CONC 32.8 g/dl (32.0-36.5); MEAN CORPUSCULAR VOLUME 93.6 fl (80.0-96.0); MONO # 1.2 10^3/uL (0.0-0.8); MONO % 23.3 % (2.0-8.0); NEUTROPHILS # 3.6 10^3/uL (1.5-8.5); NEUTROPHILS % 66.8 % (36.0-66.0); PLATELET COUNT, AUTOMATED 143 10^3/uL (150-450); RED BLOOD COUNT 3.45 10^6/uL (4.30-6.10); WHITE BLOOD COUNT 5.3 10^3/uL (4.0-10.0)
[2022-03-14 09:54] LABS: INR 1.03; PROTHROMBIN TIME 13.7 SECONDS (12.5-14.5)
[2022-03-14 09:55] LABS: PARTIAL THROMBOPLASTIN TIME 28.7 SECONDS (24.8-34.2); RSV AMPLIFICATION NEGATIVE (NEGATIVE)
[2022-03-14] MEDS: METOPROLOL 5 MG/5 ML VIAL IV SCH ×6 (09:57→21:52)
[2022-03-14 09:58] LABS: ERYTHROCYTE SEDIMENTATION RATE 39 mm/hr (0-20)
[2022-03-14 10:21] LABS: CK-MB VALUE MASS < 1.0 NG/ML (<3.6); CPK CREATINE PHOSPHOKINASE 29 U/L (39-308); MB/CK RELATIVE INDEX 3.45 (< OR =4)
[2022-03-14] MEDS ORDERED: bisoproloL fumarate 5 MG TAB PO ONE (10:30)
[2022-03-14] MEDS ORDERED: NS 1,000 ML IV ONE (10:30)
[2022-03-14 11:11] LABS: ALBUMIN 2.8 GM/DL (3.2-5.2); ALT/SGPT 67 U/L (12-78); BILIRUBIN,DIRECT 0.3 MG/DL (0.0-0.2); BLOOD UREA NITROGEN 16 MG/DL (7-18); C REACTIVE PROTEIN QUANTITATIV 3.15 MG/DL (0.00-0.30); CALCIUM LEVEL 8.4 MG/DL (8.8-10.2); CARBON DIOXIDE LEVEL 28 MEQ/L (21-32); CHLORIDE LEVEL 105 MEQ/L (98-107); GLOMERULAR FILTRATION RATE > 60.0 (>42); GLUCOSE, FASTING 105 MG/DL (70-100); LIPASE 96 U/L (73-393); NT-PRO BNP 1555 PG/ML (<125); SODIUM LEVEL 139 MEQ/L (136-145); TOTAL PROTEIN 5.4 GM/DL (6.4-8.2)
[2022-03-14] MEDS ORDERED: ISOVUE-370 76% 100ML VIAL As Ordered ONE ×2 (11:16→11:19)
[2022-03-14 13:36] LABS: CK-MB VALUE MASS < 1.0 NG/ML (<3.6); CPK CREATINE PHOSPHOKINASE 25 U/L (39-308)
[2022-03-14] MEDS ORDERED: CALC500T61 PO (16:22)
[2022-03-14] MEDS ORDERED: TURM500T PO (16:22)
[2022-03-14] MEDS ORDERED: HOME MED LIST COMPLETE! XX SCH (16:25)
[2022-03-14] MEDS ORDERED: ACETAMINOPHEN TAB 650MG DOSE (2X325MG) PO PRN (17:05)
[2022-03-14] MEDS ORDERED: PERCOCET 5MG/325MG TAB PO PRN (17:10)
[2022-03-14] MEDS ORDERED: METOPROLOL TART 25 MG TABLET PO SCH (18:00)
[2022-03-14] MEDS: SODIUM CHLORIDE 0.9% INJ 10 ML SYR IV SCH (18:56)
[2022-03-14 19:24] LABS: HEMOGLOBIN A1c 5.2 %
[2022-03-14 20:00] VITALS: O2SAT 96
[2022-03-14 20:01] LABS: CK-MB VALUE MASS 1.1 NG/ML (<3.6); MB/CK RELATIVE INDEX 4.78 (< OR =4)
[2022-03-14 20:38] VITALS: BP 121/77
[2022-03-14] MEDS: METOPROLOL TART 25 MG TABLET PO PRN (20:59)
[2022-03-14 21:00] VITALS: O2SAT 97
[2022-03-14] MEDS: TAMSULOSIN 0.4 MG CAP PO SCH (21:01)
[2022-03-14] MEDS: ENOXAPARIN 80MG/0.8ML SYRINGE (J1650 PER 10MG) SC SCH (21:01)
[2022-03-14 22:00] VITALS: O2SAT 96
[2022-03-14] MEDS: ACYCLOVIR 200 MG CAPSULE PO SCH (22:49)
[2022-03-14 23:00] VITALS: O2SAT 96
[2022-03-14] MEDS ORDERED: DIGOXIN INJ 0.5 MG/2 ML AMP (J1160) IV STA (23:17)
[2022-03-14 23:30] VITALS: BP 130/76
[2022-03-14] MEDS: SODIUM CHLORIDE 0.9% INJ 10 ML SYR IV PRN (23:34)
[2022-03-15] VITALS (14 sets, daily range): BP systolic 88–102; BP diastolic 56–72; O2SAT 95–97
[2022-03-15] MEDS: METOPROLOL 5 MG/5 ML VIAL IV SCH ×3 (03:04→03:32)
[2022-03-15] MEDS: METOPROLOL TART 25 MG TABLET PO PRN (04:24)
[2022-03-15] MEDS: SODIUM CHLORIDE 0.9% INJ 10 ML SYR IV SCH (05:58)
[2022-03-15 06:22] LABS: HEMATOCRIT 30.3 % (42.0-52.0); HEMOGLOBIN 9.9 g/dl (13.5-17.5); MEAN CORPUSCULAR HEMOGLOBIN 30.3 pg (27.0-33.0); MEAN CORPUSCULAR HGB CONC 32.7 g/dl (32.0-36.5); MEAN CORPUSCULAR VOLUME 92.7 fl (80.0-96.0); PLATELET COUNT, AUTOMATED 128 10^3/uL (150-450); RED BLOOD COUNT 3.27 10^6/uL (4.30-6.10); WHITE BLOOD COUNT 4.5 10^3/uL (4.0-10.0)
[2022-03-15 06:53] LABS: BLOOD UREA NITROGEN 14 MG/DL (7-18); CALCIUM LEVEL 8.1 MG/DL (8.8-10.2); CARBON DIOXIDE LEVEL 29 MEQ/L (21-32); CHLORIDE LEVEL 106 MEQ/L (98-107); CREATININE FOR GFR 0.89 MG/DL (0.70-1.30); GLOMERULAR FILTRATION RATE > 60.0 (>42); GLUCOSE, FASTING 91 MG/DL (70-100); POTASSIUM SERUM 3.9 MEQ/L (3.5-5.1); SODIUM LEVEL 138 MEQ/L (136-145)
[2022-03-15] MEDS ORDERED: DIGOXIN INJ 0.5 MG/2 ML AMP (J1160) IV ONE (09:00)
[2022-03-15] MEDS ORDERED: ATORVASTATIN 20 MG TAB PO SCH (09:00)
[2022-03-15] MEDS: VITAMIN D 1,000 INTERNATIONAL UNITS TABLET PO SCH (09:08)
[2022-03-15] MEDS: ACYCLOVIR 200 MG CAPSULE PO SCH ×2 (09:08→20:00)
[2022-03-15] MEDS: OYSTER SHELL CALCIUM 500 MG TAB PO SCH (09:08)
[2022-03-15] MEDS: FINASTERIDE 5MG TAB PO SCH (09:08)
[2022-03-15] MEDS: ENOXAPARIN 80MG/0.8ML SYRINGE (J1650 PER 10MG) SC SCH (09:09)
[2022-03-15] MEDS ORDERED: METOPROLOL TART 50 MG TAB PO ONE (09:15)
[2022-03-15] MEDS: CYANOCOBALAMIN 500 MCG TAB PO SCH (11:15)
[2022-03-15] MEDS: METOPROLOL TART 50 MG TAB PO SCH ×3 (11:46→23:42)
[2022-03-15] MEDS ORDERED: METOPROLOL TART 50 MG TAB PO SCH (12:00)
[2022-03-15] MEDS: TAMSULOSIN 0.4 MG CAP PO SCH (20:00)
[2022-03-15] MEDS: APIXABAN 5 MG TAB (ELIQUIS) PO SCH (20:00)
[2022-03-16] VITALS (18 sets, daily range): BP systolic 92–114; BP diastolic 56–72; O2SAT 95–98
[2022-03-16] MEDS: METOPROLOL TART 50 MG TAB PO SCH ×3 (05:41→21:10)
[2022-03-16 06:02] LABS: HEMATOCRIT 30.3 % (42.0-52.0); MEAN CORPUSCULAR HEMOGLOBIN 30.3 pg (27.0-33.0); MEAN CORPUSCULAR VOLUME 91.8 fl (80.0-96.0); PLATELET COUNT, AUTOMATED 122 10^3/uL (150-450); WHITE BLOOD COUNT 4.4 10^3/uL (4.0-10.0)
[2022-03-16 06:46] LABS: BLOOD UREA NITROGEN 15 MG/DL (7-18); CARBON DIOXIDE LEVEL 27 MEQ/L (21-32); CHLORIDE LEVEL 105 MEQ/L (98-107); CREATININE FOR GFR 0.82 MG/DL (0.70-1.30); GLOMERULAR FILTRATION RATE > 60.0 (>42); GLUCOSE, FASTING 87 MG/DL (70-100); POTASSIUM SERUM 3.8 MEQ/L (3.5-5.1); SODIUM LEVEL 138 MEQ/L (136-145)
[2022-03-16] MEDS ORDERED: DIGOXIN INJ 0.5 MG/2 ML AMP (J1160) IV SCH ×3 (09:00)
[2022-03-16] MEDS ORDERED: atenoloL 50 MG TAB PO SCH (09:00)
[2022-03-16] MEDS ORDERED: DIGOXIN INJ 0.5 MG/2 ML AMP (J1160) IV ONE (09:00)
[2022-03-16] MEDS: FINASTERIDE 5MG TAB PO SCH (09:06)
[2022-03-16] MEDS: OYSTER SHELL CALCIUM 500 MG TAB PO SCH (09:06)
[2022-03-16] MEDS: VITAMIN D 1,000 INTERNATIONAL UNITS TABLET PO SCH (09:07)
[2022-03-16] MEDS: APIXABAN 5 MG TAB (ELIQUIS) PO SCH ×2 (09:07→20:30)
[2022-03-16] MEDS: ACYCLOVIR 200 MG CAPSULE PO SCH ×2 (09:07→20:30)
[2022-03-16] MEDS: SODIUM CHLORIDE 0.9% INJ 10 ML SYR IV SCH (09:14)
[2022-03-16] MEDS ORDERED: LOPERAMIDE 2 MG CAPLET PO ONE (09:45)
[2022-03-16] MEDS ORDERED: NS 1,000 ML IV ONE (09:55)
[2022-03-16] MEDS: SODIUM CHLORIDE 0.9% INJ 10 ML SYR IV PRN (11:32)
[2022-03-16] MEDS: CYANOCOBALAMIN 500 MCG TAB PO SCH (11:32)
[2022-03-16] MEDS: DIGOXIN 0.125 MG TAB PO SCH (15:49)
[2022-03-16] MEDS: TAMSULOSIN 0.4 MG CAP PO SCH (20:30)
[2022-03-16] MEDS ORDERED: AMIODARONE HCL 150 MG in IV 1 EA IV ONE (23:45)
[2022-03-17] VITALS (9 sets, daily range): BP systolic 102–133; BP diastolic 60–70; O2SAT 96–97
[2022-03-17] MEDS: METOPROLOL TART 50 MG TAB PO SCH (04:55)
[2022-03-17 05:15] LABS: HEMATOCRIT 30.1 % (42.0-52.0); HEMOGLOBIN 9.9 g/dl (13.5-17.5); MEAN CORPUSCULAR HEMOGLOBIN 30.2 pg (27.0-33.0); MEAN CORPUSCULAR HGB CONC 32.9 g/dl (32.0-36.5); MEAN CORPUSCULAR VOLUME 91.8 fl (80.0-96.0); PLATELET COUNT, AUTOMATED 126 10^3/uL (150-450); RED BLOOD COUNT 3.28 10^6/uL (4.30-6.10); WHITE BLOOD COUNT 4.4 10^3/uL (4.0-10.0)
[2022-03-17 05:52] LABS: BLOOD UREA NITROGEN 14 MG/DL (7-18); CALCIUM LEVEL 7.9 MG/DL (8.8-10.2); CARBON DIOXIDE LEVEL 29 MEQ/L (21-32); CHLORIDE LEVEL 104 MEQ/L (98-107); CREATININE FOR GFR 0.84 MG/DL (0.70-1.30); GLOMERULAR FILTRATION RATE > 60.0 (>42); GLUCOSE, FASTING 102 MG/DL (70-100); MAGNESIUM LEVEL 1.8 MG/DL (1.8-2.4); SODIUM LEVEL 137 MEQ/L (136-145)
[2022-03-17] MEDS ORDERED: METOPROLOL TART 25 MG TABLET PO ONE (07:00)
[2022-03-17] MEDS: FINASTERIDE 5MG TAB PO SCH (08:59)
[2022-03-17] MEDS: VITAMIN D 1,000 INTERNATIONAL UNITS TABLET PO SCH (08:59)
[2022-03-17] MEDS ORDERED: LOSARTAN 25 MG TAB PO SCH (09:00)
[2022-03-17] MEDS ORDERED: DIGOXIN 0.125 MG TAB PO SCH (09:00)
[2022-03-17] MEDS: ACYCLOVIR 200 MG CAPSULE PO SCH (09:01)
[2022-03-17] MEDS: DIGOXIN 0.125 MG TAB PO SCH (09:01)
[2022-03-17] MEDS: APIXABAN 5 MG TAB (ELIQUIS) PO SCH (09:01)
[2022-03-17] MEDS: OYSTER SHELL CALCIUM 500 MG TAB PO SCH (09:02)
[2022-03-17] MEDS: SODIUM CHLORIDE 0.9% INJ 10 ML SYR IV SCH (09:24)
[2022-03-17] MEDS ORDERED: LOSA25TA13 PO (10:10)
[2022-03-17] MEDS ORDERED: ELIQ5TAB PO (10:10)
[2022-03-17] MEDS ORDERED: DIGO0.123 PO (10:10)
[2022-03-17] MEDS ORDERED: METO75TA PO (10:10)
[2022-03-17] MEDS ORDERED: PILL CUTTER 1 EACH XX ONE (10:27)
[2022-03-17] MEDS ORDERED: METOPROLOL TART 25 MG TABLET PO SCH (21:00)
== END 2022-03-17 12:40 | disposition home or self-care (01) | DRG 309 ==
LOC: M ED 08:29 → M ED INP 17:54 → M PCU 20:36
PROVIDERS: ADMIT Internal Medicine; ATTEND Internal Medicine
PROC: B246ZZZ Ultrasonography of Right and Left Heart (ICD-10-PCS; principal; 2022-03-15)
DX: I48.92 Unspecified atrial flutter (principal); Z94.84 Stem cells transplant status; C90.00 Multiple myeloma not having achieved remission; N40.0 Benign prostatic hyperplasia without lower urinary tract symptoms; E78.5 Hyperlipidemia, unspecified; R19.7 Diarrhea, unspecified; Z20.822 Contact with and (suspected) exposure to COVID-19; Z79.899 Other long term (current) drug therapy; I45.10 Unspecified right bundle-branch block; R59.1 Generalized enlarged lymph nodes

== ENCOUNTER → 2022-03-26 | Outpatient (REF) | payer MEDICARE, OTHER ==
[~2022-03-26] MED LIST changes: +CALC500T61 PO; +DIGO0.123 PO; +ELIQ5TAB PO; +LOSA25TA13 PO; +METO75TA PO; +TURM500T PO
[2022-03-26 14:39] LABS: FREE T4 1.18 NG/DL (0.76-1.46)
[2022-03-26 16:33] LABS: IMMUNOGLOBULIN A < 7.8 MG/DL (70-400)
== END ==
LOC: M LAB REF 11:33
PROVIDERS: ATTEND Internal Medicine Gastroenterology
DX: R19.7 Diarrhea, unspecified (principal)

== ENCOUNTER → 2022-03-27 | Outpatient (REF) | payer MEDICARE, OTHER | LOC: M LAB REF 15:13 | PROVIDERS: ATTEND Internal Medicine Gastroenterology | DX: R19.7 Diarrhea, unspecified (principal) ==

== ENCOUNTER 2022-03-29 08:02 | Outpatient (CLI) | payer MEDICARE, OTHER ==
[~2022-03-29] VITALS: Ht 175.3 cm; Wt 73.6 kg
[~2022-03-29 08:02] MED LIST changes: +ACETAMINOPHEN 650MG PO PRIOR TO INFUSION PO ONE; +ALBUTEROL SULFATE 2.5 MG/0.5 ML INH NEB SOLN INH PRN; +EPINEPHrine INJ 1 MG/ML 1ML AMP IM PRN; +IMMUNE GLOBULIN 10% 10 GM in IV 1 EA IV ONE; +IMMUNE GLOBULIN 10% 20 GM in IV 1 EA IV ONE; +IMMUNE GLOBULIN 10% 5 GM in IV 1 EA IV ONE; +NS 1,000 ML IV SCH; +diphenhydrAMINE 25MG IV PRIOR TO INFUSION IV ONE; +diphenhydrAMINE 50MG/ML VIAL IV PRN; +methylPREDNISolone 125MG 2ML VIAL IV PRN
[2022-03-29 08:44] VITALS: BP 141/60
[2022-03-29 10:15] VITALS: BP 111/57
[2022-03-29 10:45] VITALS: BP 102/56
[2022-03-29 11:15] VITALS: BP 103/60
[2022-03-29 12:15] VITALS: BP 112/66
[2022-03-29] MEDS ORDERED: SODIUM CHLORIDE 0.9% INJ 10 ML SYR IV PRN (12:50)
[2022-03-29 13:10] VITALS: BP 125/67
[2022-03-30] MEDS ORDERED: SODIUM CHLORIDE 0.9% INJ 10 ML SYR IV SCH (09:00)
[2022-04-02] MEDS ORDERED: PACE200T PO (08:21)
[2022-04-02] MEDS ORDERED: PANT40TA29 PO (08:21)
[2022-04-02] MEDS ORDERED: DILT120C78 PO (08:21)
== END 2022-03-29 13:10 | disposition home or self-care (01) ==
LOC: M INFU 08:02
PROVIDERS: ATTEND Specialist
DX: C90.00 Multiple myeloma not having achieved remission (principal); D80.1 Nonfamilial hypogammaglobulinemia
CPT/HCPCS: 96365; 96366; 96375; J1200; J1459; J1642

== ENCOUNTER → 2022-04-22 | Outpatient (CLI) | payer MEDICARE, OTHER ==
[~2022-04-22] MED LIST changes: -ACETAMINOPHEN 650MG PO PRIOR TO INFUSION PO ONE; -ALBUTEROL SULFATE 2.5 MG/0.5 ML INH NEB SOLN INH PRN; +DILT120C78 PO; -EPINEPHrine INJ 1 MG/ML 1ML AMP IM PRN; -IMMUNE GLOBULIN 10% 10 GM in IV 1 EA IV ONE; -IMMUNE GLOBULIN 10% 20 GM in IV 1 EA IV ONE; -IMMUNE GLOBULIN 10% 5 GM in IV 1 EA IV ONE; +LIDOCAINE 1% MDV 20ML VIAL As Ordered ONE; -NS 1,000 ML IV SCH; +PACE200T PO; +PANT40TA29 PO; -diphenhydrAMINE 25MG IV PRIOR TO INFUSION IV ONE; -diphenhydrAMINE 50MG/ML VIAL IV PRN; -methylPREDNISolone 125MG 2ML VIAL IV PRN
[2022-04-22 11:44] VITALS: BP 109/61
== END ==
LOC: M IRPRO 10:46
PROVIDERS: ATTEND Nurse Practitioner
DX: R22.1 Localized swelling, mass and lump, neck (principal)

== ENCOUNTER → 2022-05-07 | Outpatient (REF) | payer MEDICARE, OTHER ==
[~2022-05-07] MED LIST changes: +DEXA2TA PO; -LIDOCAINE 1% MDV 20ML VIAL As Ordered ONE; +POMA2CAP PO
== END ==
LOC: M LAB REF 11:51
PROVIDERS: ATTEND Nurse Practitioner Women's Health
DX: Z87.898 Personal history of other specified conditions (principal)

== ENCOUNTER → 2022-05-07 | Outpatient (CLI) | payer MEDICARE, OTHER ==
[~2022-05-07] MED LIST changes: +ALBU8.5H INH; +DARA15VI SQ; +DILT180C28 PO
== END ==
LOC: M ONCM 08:46
PROVIDERS: ATTEND Dietitian, Registered
DX: Z71.3 Dietary counseling and surveillance (principal); C90.00 Multiple myeloma not having achieved remission

== ENCOUNTER 2022-05-13 10:33 | Inpatient (IN) | payer MEDICARE, OTHER ==
[~2022-05-13] VITALS: Ht 175.3 cm; Wt 82.0 kg
[~2022-05-13 10:33] MED LIST changes: -ALBU8.5H INH; -DARA15VI SQ; -DILT180C28 PO
[2022-05-13] MEDS ORDERED: IPRATROPIUM 0.5MG/ALBUTEROL 2.5MG INH SOL UD 3ML (DUONEB) NEB ONE ×2 (10:45→15:20)
[2022-05-13 12:20] LABS: EOS % 4.8 % (0.0-3.0); HEMATOCRIT 30.9 % (42.0-52.0); HEMOGLOBIN 10.2 g/dl (13.5-17.5); LYMPH # 0.1 10^3/uL (1.5-5.0); MEAN CORPUSCULAR HEMOGLOBIN 27.3 pg (27.0-33.0); MEAN CORPUSCULAR VOLUME 82.8 fl (80.0-96.0); MONO % 7.1 % (2.0-8.0); NEUTROPHILS % 50.1 % (36.0-66.0); RED BLOOD COUNT 3.73 10^6/uL (4.30-6.10)
[2022-05-13 12:30] LABS: NEUTROPHILS # 0.2 10^3/uL (1.5-8.5)
[2022-05-13 12:31] LABS: WHITE BLOOD COUNT 0.4 10^3/uL (4.0-10.0)
[2022-05-13 12:31] LABS: INR 2.23; PROTHROMBIN TIME 25.1 SECONDS (12.5-14.5)
[2022-05-13 12:32] LABS: PLATELET COUNT, AUTOMATED 43 10^3/uL (150-450)
[2022-05-13 12:32] LABS: PARTIAL THROMBOPLASTIN TIME 24.7 SECONDS (24.8-34.2)
[2022-05-13 12:48] LABS: ETHYL ALCOHOL (ETHANOL) 0.003 % (0.000-0.010)
[2022-05-13 12:49] LABS: BILIRUBIN,DIRECT 0.4 MG/DL (<0.4)
[2022-05-13 12:50] LABS: ACETAMINOPHEN LEVEL < 2.0 UG/ML (10.0-20.0); ALBUMIN 1.6 G/DL (3.2-5.2); ALKALINE PHOSPHATASE 103 U/L (46-116); ALT/SGPT 43 U/L (7.0-40); AST/SGOT 39 U/L (<34); BILIRUBIN,TOTAL 0.9 MG/DL (0.3-1.2); BLOOD UREA NITROGEN 43 MG/DL (9-23); CARBON DIOXIDE LEVEL 28 MMOL/L (20-31); CHLORIDE LEVEL 95 MMOL/L (98-107); CK-MB VALUE MASS < 1.0 NG/ML (<3.6); CREATININE FOR GFR 1.15 MG/DL (0.70-1.30); GLOMERULAR FILTRATION RATE > 60.0 (>42); GLUCOSE, FASTING 147 MG/DL (74-106); SALICYLATE LEVEL < 3.0 MG/DL (<30); SODIUM LEVEL 131 MMOL/L (136-145)
[2022-05-13] MEDS ORDERED: CEFEPIME HCL 2 GM in D5W MINI-BAG PLUS 50 ML IV ONE (12:50)
[2022-05-13 12:51] LABS: THYROID STIMULATING HORMONE 10.082 uIU/ML (0.55-4.78); THYROXINE (T4) 3.4 UG/DL (4.5-10.9)
[2022-05-13 12:53] LABS: CPK CREATINE PHOSPHOKINASE 60 U/L (46-171); MB/CK RELATIVE INDEX 1.66 (< OR =4)
[2022-05-13] MEDS ORDERED: ISOVUE-370 76% 100ML VIAL As Ordered ONE (13:18)
[2022-05-13 13:43] LABS: CK-MB VALUE MASS < 1.0 NG/ML (<3.6)
[2022-05-13 13:47] LABS: CPK CREATINE PHOSPHOKINASE 25 U/L (46-171)
[2022-05-13] MEDS ORDERED: NS 1,000 ML IV ONE ×3 (14:35→17:00)
[2022-05-13 14:52] LABS: CK-MB VALUE MASS < 1.0 NG/ML (<3.6); LIPASE 19 U/L (12-53)
[2022-05-13 14:53] LABS: CPK CREATINE PHOSPHOKINASE 14.99999 U/L (46-171)
[2022-05-13 14:54] LABS: ALBUMIN 1.6 G/DL (3.2-5.2); ALKALINE PHOSPHATASE 90 U/L (46-116); ALT/SGPT 36 U/L (7.0-40); AST/SGOT 25 U/L (<34); BILIRUBIN,DIRECT 0.4 MG/DL (<0.4); BILIRUBIN,TOTAL 0.9 MG/DL (0.3-1.2); BLOOD UREA NITROGEN 38 MG/DL (9-23); CALCIUM LEVEL 7.9 MG/DL (8.3-10.6); CARBON DIOXIDE LEVEL 26 MMOL/L (20-31); CHLORIDE LEVEL 95 MMOL/L (98-107); GLOMERULAR FILTRATION RATE > 60.0 (>42); GLUCOSE, FASTING 122 MG/DL (74-106); POTASSIUM SERUM 4.5 MMOL/L (3.5-5.1); SODIUM LEVEL 130 MMOL/L (136-145); TOTAL PROTEIN 3.9 G/DL (5.7-8.2)
[2022-05-13 14:56] LABS: THYROID STIMULATING HORMONE 8.906 uIU/ML (0.55-4.78)
[2022-05-13] MEDS ORDERED: ALBU8.5H INH (15:11)
[2022-05-13] MEDS ORDERED: DARA15VI SQ (15:11)
[2022-05-13] MEDS ORDERED: ELIQ5TAB PO (15:11)
[2022-05-13] MEDS ORDERED: DILT180C28 PO (15:11)
[2022-05-13] MEDS ORDERED: DEXA2TA PO (15:11)
[2022-05-13] MEDS ORDERED: LIDOCAINE 2% 5ML JELLY UROJET TOP ONE (15:15)
[2022-05-13] MEDS ORDERED: HOME MED LIST COMPLETE! XX SCH (15:15)
[2022-05-13] MEDS ORDERED: MIDODRINE 5 MG TAB PO ONE (15:25)
[2022-05-13 16:12] LABS: AMPHETAMINES LEVEL URINE NEGATIVE (NEGATIVE)
[2022-05-13 16:13] LABS: BARBITURATES URINE NEGATIVE (NEGATIVE); BENZODIAZEPINES URINE NEGATIVE (NEGATIVE); CANNABINOIDS URINE NEGATIVE (NEGATIVE); COCAINE METABOLITE URINE NEGATIVE (NEGATIVE); METHADONE URINE NEGATIVE (NEGATIVE); OPIATES URINE NEGATIVE (NEGATIVE); PHENCYCLIDINE URINE NEGATIVE (NEGATIVE)
[2022-05-13 17:10] VITALS: BP 99/66
[2022-05-13 17:35] VITALS: BP 109/55
[2022-05-13 18:25] VITALS: O2SAT 93
[2022-05-13] MEDS: NS 1,000 ML IV SCH (19:05)
[2022-05-13 19:07] VITALS: O2SAT 95
[2022-05-13] MEDS ORDERED: ALBUTEROL 90 MCG/ACT 8GM HFA INHALER INH PRN (20:05)
[2022-05-13 20:23] VITALS: BP 113/65
[2022-05-13] MEDS: FILGRASTIM 300MCG 0.5ML SYRINGE **SC ADMINISTRATION ONLY SC SCH (21:22)
[2022-05-13] MEDS: APIXABAN 5 MG TAB (ELIQUIS) PO SCH (21:23)
[2022-05-13] MEDS: AMIODARONE 200 MG TAB (PACERONE) PO SCH (21:23)
[2022-05-13] MEDS: ATORVASTATIN 20 MG TAB PO SCH (21:23)
[2022-05-13] MEDS: TAMSULOSIN 0.4 MG CAP PO SCH (21:23)
[2022-05-14 00:05] VITALS: BP 105/59
[2022-05-14] MEDS: PIPERACILLIN/TAZOBACTAM SOD 3.375 GM in D5W MINI-BAG PLUS 50 ML IV SCH ×5 (00:17→23:24)
[2022-05-14 04:13] VITALS: BP 95/53
[2022-05-14] MEDS: NS 1,000 ML IV SCH ×2 (06:23→15:42)
[2022-05-14] MEDS ORDERED: VANCOMYCIN HCL 1,000 MG, VIAL MATE ADAPTER 1 EACH in NS 250 ML IV SCH (07:50)
[2022-05-14] MEDS ORDERED: LEVALBUTEROL 1.25MG 0.5ML CONCENTRATE NEB INH PRN (07:55)
[2022-05-14 08:00] VITALS: BP 116/76
[2022-05-14 08:08] LABS: EOS # 0.1 10^3/uL (0.0-0.5); EOS % 15.8 % (0.0-3.0); HEMATOCRIT 24.1 % (42.0-52.0); HEMOGLOBIN 7.9 g/dl (13.5-17.5); LYMPH % 7.9 % (24.0-44.0); MEAN CORPUSCULAR HEMOGLOBIN 27.4 pg (27.0-33.0); MEAN CORPUSCULAR HGB CONC 32.8 g/dl (32.0-36.5); MEAN CORPUSCULAR VOLUME 83.7 fl (80.0-96.0); MONO % 7.9 % (2.0-8.0); NEUTROPHILS % 68.4 % (36.0-66.0); RED BLOOD COUNT 2.88 10^6/uL (4.30-6.10)
[2022-05-14 08:17] LABS: NEUTROPHILS # 0.3 10^3/uL (1.5-8.5); PLATELET COUNT, AUTOMATED 34 10^3/uL (150-450); WHITE BLOOD COUNT 0.4 10^3/uL (4.0-10.0)
[2022-05-14] MEDS ORDERED: VANCOMYCIN HCL 750 MG, VIAL MATE ADAPTER 1 EACH in D5W 250 ML IV ONE ×2 (09:00→10:00)
[2022-05-14 09:19] LABS: ALBUMIN 1.2 G/DL (3.2-5.2); ALKALINE PHOSPHATASE 81 U/L (46-116); ALT/SGPT 33 U/L (7.0-40); AST/SGOT 29 U/L (<34); BLOOD UREA NITROGEN 37 MG/DL (9-23); CALCIUM LEVEL 7.2 MG/DL (8.3-10.6); CARBON DIOXIDE LEVEL 28 MMOL/L (20-31); CHLORIDE LEVEL 99 MMOL/L (98-107); CREATININE FOR GFR 1.09 MG/DL (0.70-1.30); GLOMERULAR FILTRATION RATE > 60.0 (>42); GLUCOSE, FASTING 108 MG/DL (74-106); POTASSIUM SERUM 4.2 MMOL/L (3.5-5.1); SODIUM LEVEL 133 MMOL/L (136-145); TOTAL PROTEIN 3.1 G/DL (5.7-8.2)
[2022-05-14] MEDS: VITAMIN D 1,000 INTERNATIONAL UNITS TABLET PO SCH (09:57)
[2022-05-14] MEDS: FINASTERIDE 5MG TAB PO SCH (09:57)
[2022-05-14] MEDS: APIXABAN 5 MG TAB (ELIQUIS) PO SCH ×2 (09:58→20:34)
[2022-05-14] MEDS: AMIODARONE 200 MG TAB (PACERONE) PO SCH ×2 (09:58→20:34)
[2022-05-14] MEDS: OYSTER SHELL CALCIUM 500 MG TAB PO SCH (09:58)
[2022-05-14 10:25] LABS: ABG BASE EXCESS 4.1 (-2.0-2.0); ABG HCO3 26.5 MEQ/L (22.0-26.0); ABG O2 SATURATION 89.4 % (95.0-99.0); ABG PARTIAL PRESSURE CO2 31.3 mmHg (35.0-45.0); ABG PARTIAL PRESSURE O2 56.7 mmHg (75.0-100.0); ABG TOTAL CO2 27.4 MEQ/L (23.0-31.0); ABG pH (ARTERIAL) 7.545 UNITS (7.350-7.450)
[2022-05-14] MEDS: LEVALBUTEROL 1.25MG 0.5ML CONCENTRATE NEB NEB SCH ×4 (10:39→19:53)
[2022-05-14] MEDS: FILGRASTIM 300MCG 0.5ML SYRINGE **SC ADMINISTRATION ONLY SC SCH (10:59)
[2022-05-14 11:59] VITALS: BP 116/64
[2022-05-14 16:00] VITALS: BP 115/61
[2022-05-14 19:59] LABS: HEMOGLOBIN 8.2 g/dl (13.5-17.5); MEAN CORPUSCULAR HEMOGLOBIN 27.6 pg (27.0-33.0); MEAN CORPUSCULAR HGB CONC 32.8 g/dl (32.0-36.5); MEAN CORPUSCULAR VOLUME 84.2 fl (80.0-96.0); RED BLOOD COUNT 2.97 10^6/uL (4.30-6.10)
[2022-05-14 20:02] LABS: WHITE BLOOD COUNT 0.6 10^3/uL (4.0-10.0)
[2022-05-14 20:03] LABS: PLATELET COUNT, AUTOMATED 32 10^3/uL (150-450)
[2022-05-14] MEDS: VANCOMYCIN HCL 750 MG, VIAL MATE ADAPTER 1 EACH in D5W 250 ML IV SCH (20:33)
[2022-05-14] MEDS: TAMSULOSIN 0.4 MG CAP PO SCH (20:34)
[2022-05-14] MEDS: ACYCLOVIR 200 MG CAPSULE PO SCH (20:34)
[2022-05-14 20:43] VITALS: BP 112/65
[2022-05-15] VITALS (7 sets, daily range): BP systolic 98–116; BP diastolic 55–72
[2022-05-15] MEDS: NS 1,000 ML IV SCH ×2 (04:55→22:11)
[2022-05-15] MEDS: PIPERACILLIN/TAZOBACTAM SOD 3.375 GM in D5W MINI-BAG PLUS 50 ML IV SCH ×3 (05:29→17:46)
[2022-05-15] MEDS: LEVALBUTEROL 1.25MG 0.5ML CONCENTRATE NEB NEB SCH ×4 (07:11→19:46)
[2022-05-15] MEDS: VANCOMYCIN HCL 750 MG, VIAL MATE ADAPTER 1 EACH in D5W 250 ML IV SCH ×2 (08:23→22:11)
[2022-05-15 08:28] LABS: BASO % 1.3 % (0.0-1.0); EOS # 0.1 10^3/uL (0.0-0.5); HEMATOCRIT 24.5 % (42.0-52.0); HEMOGLOBIN 8.1 g/dl (13.5-17.5); LYMPH # 0.1 10^3/uL (1.5-5.0); LYMPH % 9.3 % (24.0-44.0); MEAN CORPUSCULAR HEMOGLOBIN 27.9 pg (27.0-33.0); MEAN CORPUSCULAR HGB CONC 33.1 g/dl (32.0-36.5); MEAN CORPUSCULAR VOLUME 84.5 fl (80.0-96.0); MONO % 5.3 % (2.0-8.0); NEUTROPHILS % 66.8 % (36.0-66.0)
[2022-05-15 08:31] LABS: NEUTROPHILS # 0.5 10^3/uL (1.5-8.5); PLATELET COUNT, AUTOMATED 28 10^3/uL (150-450)
[2022-05-15 08:32] LABS: WHITE BLOOD COUNT 0.8 10^3/uL (4.0-10.0)
[2022-05-15 08:57] LABS: ALBUMIN 1.1 G/DL (3.2-5.2); ALKALINE PHOSPHATASE 84 U/L (46-116); ALT/SGPT 33 U/L (7.0-40); AST/SGOT 22 U/L (<34); BILIRUBIN,TOTAL 0.9 MG/DL (0.3-1.2); BLOOD UREA NITROGEN 34 MG/DL (9-23); CALCIUM LEVEL 7.3 MG/DL (8.3-10.6); CARBON DIOXIDE LEVEL 26 MMOL/L (20-31); CHLORIDE LEVEL 103 MMOL/L (98-107); CREATININE FOR GFR 0.91 MG/DL (0.70-1.30); GLOMERULAR FILTRATION RATE > 60.0 (>42); GLUCOSE, FASTING 128 MG/DL (74-106); POTASSIUM SERUM 3.9 MMOL/L (3.5-5.1); SODIUM LEVEL 135 MMOL/L (136-145); TOTAL PROTEIN 3.1 G/DL (5.7-8.2)
[2022-05-15] MEDS: FINASTERIDE 5MG TAB PO SCH (09:00)
[2022-05-15] MEDS ORDERED: PANTOPRAZOLE 40MG TAB (PROTONIX) PO SCH (09:00)
[2022-05-15] MEDS: VITAMIN D 1,000 INTERNATIONAL UNITS TABLET PO SCH (09:16)
[2022-05-15] MEDS: ATORVASTATIN 20 MG TAB PO SCH (09:16)
[2022-05-15] MEDS: OYSTER SHELL CALCIUM 500 MG TAB PO SCH (09:16)
[2022-05-15] MEDS: APIXABAN 5 MG TAB (ELIQUIS) PO SCH ×2 (09:16→20:42)
[2022-05-15] MEDS: ACYCLOVIR 200 MG CAPSULE PO SCH ×2 (09:16→20:42)
[2022-05-15] MEDS: FILGRASTIM 300MCG 0.5ML SYRINGE **SC ADMINISTRATION ONLY SC SCH (09:17)
[2022-05-15] MEDS: AMIODARONE 200 MG TAB (PACERONE) PO SCH ×2 (09:17→20:42)
[2022-05-15] MEDS ORDERED: PILL CUTTER 1 EACH XX PRN (09:55)
[2022-05-15 13:26] LABS: IMMUNOGLOBULIN G 217 MG/DL (650-1600)
[2022-05-15] MEDS ORDERED: ISOVUE-370 76% 100ML VIAL As Ordered ONE ×2 (16:52→21:09)
[2022-05-15] MEDS ORDERED: IMMUNE GLOBULIN 10% 40 GM in IV 1 EA IV ONE (18:00)
[2022-05-15] MEDS: GASTROGRAFIN SOLUTION 30ML PO SCH ×2 (20:02→20:42)
[2022-05-16] VITALS: BP 124/63
[2022-05-16] MEDS: PIPERACILLIN/TAZOBACTAM SOD 3.375 GM in D5W MINI-BAG PLUS 50 ML IV SCH ×5 (00:30→17:46)
[2022-05-16 04:37] VITALS: BP 110/59
[2022-05-16] MEDS: LEVALBUTEROL 1.25MG 0.5ML CONCENTRATE NEB NEB SCH ×4 (06:06→20:21)
[2022-05-16 07:51] VITALS: BP 116/62
[2022-05-16 08:05] LABS: BASO % 1.4 % (0.0-1.0); EOS # 0.1 10^3/uL (0.0-0.5); EOS % 12.2 % (0.0-3.0); HEMATOCRIT 22.8 % (42.0-52.0); HEMOGLOBIN 7.4 g/dl (13.5-17.5); LYMPH % 2.7 % (24.0-44.0); MEAN CORPUSCULAR HEMOGLOBIN 27.4 pg (27.0-33.0); MEAN CORPUSCULAR HGB CONC 32.5 g/dl (32.0-36.5); MEAN CORPUSCULAR VOLUME 84.4 fl (80.0-96.0); MONO % 5.4 % (2.0-8.0); NEUTROPHILS % 70.2 % (36.0-66.0)
[2022-05-16 08:29] LABS: VANCOMYCIN LEVEL TROUGH 12.4 UG/ML (10.0-20.0)
[2022-05-16 08:31] LABS: ALKALINE PHOSPHATASE 87 U/L (46-116); ALT/SGPT 45 U/L (7.0-40); AST/SGOT 36 U/L (<34); BILIRUBIN,TOTAL 0.7 MG/DL (0.3-1.2); BLOOD UREA NITROGEN 32 MG/DL (9-23); CALCIUM LEVEL 7.4 MG/DL (8.3-10.6); CARBON DIOXIDE LEVEL 26 MMOL/L (20-31); CHLORIDE LEVEL 100 MMOL/L (98-107); CREATININE FOR GFR 0.94 MG/DL (0.70-1.30); GLOMERULAR FILTRATION RATE > 60.0 (>42); GLUCOSE, FASTING 111 MG/DL (74-106); POTASSIUM SERUM 3.7 MMOL/L (3.5-5.1); SODIUM LEVEL 132 MMOL/L (136-145); TOTAL PROTEIN 3.8 G/DL (5.7-8.2)
[2022-05-16 08:58] LABS: NEUTROPHILS # 0.5 10^3/uL (1.5-8.5)
[2022-05-16 09:00] LABS: WHITE BLOOD COUNT 0.7 10^3/uL (4.0-10.0)
[2022-05-16 09:01] LABS: PLATELET COUNT, AUTOMATED 26 10^3/uL (150-450)
[2022-05-16] MEDS: NS 1,000 ML IV SCH ×2 (09:33→18:59)
[2022-05-16] MEDS: ACYCLOVIR 200 MG CAPSULE PO SCH ×2 (09:34→20:55)
[2022-05-16] MEDS: VANCOMYCIN HCL 750 MG, VIAL MATE ADAPTER 1 EACH in D5W 250 ML IV SCH ×2 (09:34→20:39)
[2022-05-16] MEDS: VITAMIN D 1,000 INTERNATIONAL UNITS TABLET PO SCH (09:34)
[2022-05-16] MEDS: APIXABAN 5 MG TAB (ELIQUIS) PO SCH ×2 (09:34→20:54)
[2022-05-16] MEDS: AMIODARONE 200 MG TAB (PACERONE) PO SCH ×2 (09:34→20:55)
[2022-05-16] MEDS: OMEPRAZOLE SUSPENSION 20MG 10ML ORAL SYRINGE PO SCH (09:34)
[2022-05-16] MEDS: FILGRASTIM 300MCG 0.5ML SYRINGE **SC ADMINISTRATION ONLY SC SCH (09:34)
[2022-05-16] MEDS: OYSTER SHELL CALCIUM 500 MG TAB PO SCH (09:35)
[2022-05-16 11:50] VITALS: BP 124/71
[2022-05-16] MEDS: NYSTATIN 500,000U/5ML SUSP UDC SS SCH ×2 (12:42→17:46)
[2022-05-16 14:28] LABS: HEMOGLOBIN 8.3 g/dl (13.5-17.5); MEAN CORPUSCULAR HEMOGLOBIN 27.3 pg (27.0-33.0); MEAN CORPUSCULAR HGB CONC 31.9 g/dl (32.0-36.5); MEAN CORPUSCULAR VOLUME 85.5 fl (80.0-96.0); RED BLOOD COUNT 3.04 10^6/uL (4.30-6.10); WHITE BLOOD COUNT 1.2 10^3/uL (4.0-10.0)
[2022-05-16 14:34] LABS: PLATELET COUNT, AUTOMATED 29 10^3/uL (150-450)
[2022-05-16 15:28] LABS: FERRITIN 3854.1 NG/ML (10.5-307.3); FOLATE 9.14 NG/ML (>5.4)
[2022-05-16 16:00] VITALS: BP 116/58
[2022-05-16] MEDS ORDERED: MIRALAX *UNIT DOSE* 17GM PACKET PO PRN (17:15)
[2022-05-16 20:13] VITALS: BP 115/54
[2022-05-16] MEDS: DOCUSATE SODIUM 100MG CAPSULE PO SCH (20:54)
[2022-05-16] MEDS: SENNA 8.6 MG TAB (SENOKOT) PO SCH (20:54)
[2022-05-16] MEDS: FERROUS SULFATE 325MG TAB PO SCH (20:55)
[2022-05-17] MEDS: NYSTATIN 500,000U/5ML SUSP UDC SS SCH ×5 (00:08→23:59)
[2022-05-17] MEDS: PIPERACILLIN/TAZOBACTAM SOD 3.375 GM in D5W MINI-BAG PLUS 50 ML IV SCH ×5 (00:14→23:59)
[2022-05-17 00:19] VITALS: BP 106/59
[2022-05-17 04:23] VITALS: BP 121/65
[2022-05-17 07:26] LABS: BASO % 1.4 % (0.0-1.0); EOS # 0.1 10^3/uL (0.0-0.5); HEMATOCRIT 22.3 % (42.0-52.0); HEMOGLOBIN 7.2 g/dl (13.5-17.5); LYMPH % 4.3 % (24.0-44.0); MEAN CORPUSCULAR HEMOGLOBIN 27.6 pg (27.0-33.0); MEAN CORPUSCULAR HGB CONC 32.3 g/dl (32.0-36.5); MEAN CORPUSCULAR VOLUME 85.4 fl (80.0-96.0); MONO # 0.1 10^3/uL (0.0-0.8); MONO % 7.1 % (2.0-8.0); NEUTROPHILS % 62.9 % (36.0-66.0); RED BLOOD COUNT 2.61 10^6/uL (4.30-6.10)
[2022-05-17 07:28] LABS: NEUTROPHILS # 0.4 10^3/uL (1.5-8.5); PLATELET COUNT, AUTOMATED 22 10^3/uL (150-450); WHITE BLOOD COUNT 0.7 10^3/uL (4.0-10.0)
[2022-05-17 07:48] LABS: VANCOMYCIN LEVEL TROUGH 8.9 UG/ML (10.0-20.0)
[2022-05-17 08:00] VITALS: BP 113/65
[2022-05-17 08:04] LABS: ALKALINE PHOSPHATASE 97 U/L (46-116); ALT/SGPT 41 U/L (7.0-40); AST/SGOT 30 U/L (<34); BILIRUBIN,TOTAL 0.6 MG/DL (0.3-1.2); BLOOD UREA NITROGEN 28 MG/DL (9-23); CALCIUM LEVEL 7.1 MG/DL (8.3-10.6); CARBON DIOXIDE LEVEL 27 MMOL/L (20-31); CHLORIDE LEVEL 103 MMOL/L (98-107); GLOMERULAR FILTRATION RATE > 60.0 (>42); GLUCOSE, FASTING 90 MG/DL (74-106); POTASSIUM SERUM 3.3 MMOL/L (3.5-5.1); SODIUM LEVEL 136 MMOL/L (136-145); TOTAL PROTEIN 3.5 G/DL (5.7-8.2)
[2022-05-17] MEDS: VANCOMYCIN HCL 1,000 MG, VIAL MATE ADAPTER 1 EACH in D5W 250 ML IV SCH ×2 (08:47→20:17)
[2022-05-17] MEDS: NS 1,000 ML IV SCH (08:47)
[2022-05-17] MEDS: AMIODARONE 200 MG TAB (PACERONE) PO SCH (08:48)
[2022-05-17] MEDS: FERROUS SULFATE 325MG TAB PO SCH ×2 (08:48→20:17)
[2022-05-17] MEDS: ATORVASTATIN 20 MG TAB PO SCH (08:48)
[2022-05-17] MEDS: VITAMIN D 1,000 INTERNATIONAL UNITS TABLET PO SCH (08:48)
[2022-05-17] MEDS: DOCUSATE SODIUM 100MG CAPSULE PO SCH ×2 (08:48→20:17)
[2022-05-17] MEDS: APIXABAN 5 MG TAB (ELIQUIS) PO SCH ×2 (08:48→20:18)
[2022-05-17] MEDS: LEVALBUTEROL 1.25MG 0.5ML CONCENTRATE NEB NEB SCH ×4 (09:01→19:50)
[2022-05-17] MEDS: FILGRASTIM 300MCG 0.5ML SYRINGE **SC ADMINISTRATION ONLY SC SCH (11:51)
[2022-05-17] MEDS: ACYCLOVIR 200 MG CAPSULE PO SCH ×2 (11:51→20:18)
[2022-05-17] MEDS: OYSTER SHELL CALCIUM 500 MG TAB PO SCH (11:52)
[2022-05-17] MEDS: OMEPRAZOLE SUSPENSION 20MG 10ML ORAL SYRINGE PO SCH (11:53)
[2022-05-17 12:00] VITALS: BP 102/55
[2022-05-17] MEDS ORDERED: CEPACOL LOZENGE PO PRN (13:20)
[2022-05-17] MEDS ORDERED: FUROSEMIDE 20MG/2ML VIAL IV ONE (14:40)
[2022-05-17] MEDS ORDERED: ISOVUE-370 76% 100ML VIAL As Ordered ONE (14:50)
[2022-05-17] MEDS ORDERED: POTASSIUM CHLORIDE 10MEQ SR TABLET PO ONE (14:50)
[2022-05-17] MEDS ORDERED: POTASSIUM CHLORIDE 10% LIQ 20MEQ/15ML UDC PO ONE (15:15)
[2022-05-17 16:00] VITALS: BP_SYST 102; BP_SYST 106; BP_DIAS 63
[2022-05-17] MEDS: methylPREDNISolone 40MG 1ML VIAL IV SCH (16:00)
[2022-05-17 20:00] VITALS: BP 102/59
[2022-05-17] MEDS: SENNA 8.6 MG TAB (SENOKOT) PO SCH (20:18)
[2022-05-17] MEDS: CHLORASEPTIC SPRAY MT PRN (20:28)
[2022-05-18] VITALS: BP 98/54
[2022-05-18] MEDS: CHLORASEPTIC SPRAY MT PRN ×5 (00:05→20:29)
[2022-05-18] MEDS: methylPREDNISolone 40MG 1ML VIAL IV SCH ×2 (03:08→15:28)
[2022-05-18 04:00] VITALS: BP 112/67
[2022-05-18] MEDS: NYSTATIN 500,000U/5ML SUSP UDC SS SCH ×2 (05:40→12:11)
[2022-05-18] MEDS: PIPERACILLIN/TAZOBACTAM SOD 3.375 GM in D5W MINI-BAG PLUS 50 ML IV SCH ×3 (05:41→18:27)
[2022-05-18 05:58] LABS: BASO % 1.1 % (0.0-1.0); EOS % 1.1 % (0.0-3.0); HEMATOCRIT 22.7 % (42.0-52.0); HEMOGLOBIN 7.3 g/dl (13.5-17.5); LYMPH # 0.1 10^3/uL (1.5-5.0); LYMPH % 7.9 % (24.0-44.0); MEAN CORPUSCULAR HGB CONC 32.2 g/dl (32.0-36.5); MEAN CORPUSCULAR VOLUME 84.1 fl (80.0-96.0); MONO # 0.1 10^3/uL (0.0-0.8); MONO % 10.1 % (2.0-8.0); NEUTROPHILS % 67.4 % (36.0-66.0)
[2022-05-18 06:08] LABS: NEUTROPHILS # 0.6 10^3/uL (1.5-8.5); PLATELET COUNT, AUTOMATED 23 10^3/uL (150-450)
[2022-05-18 06:09] LABS: WHITE BLOOD COUNT 0.9 10^3/uL (4.0-10.0)
[2022-05-18 06:24] LABS: VANCOMYCIN LEVEL TROUGH 16.6 UG/ML (10.0-20.0)
[2022-05-18 06:29] LABS: ALBUMIN 1.2 G/DL (3.2-5.2); ALKALINE PHOSPHATASE 108 U/L (46-116); ALT/SGPT 44 U/L (7.0-40); AST/SGOT 22 U/L (<34); BILIRUBIN,TOTAL 0.6 MG/DL (0.3-1.2); BLOOD UREA NITROGEN 23 MG/DL (9-23); CALCIUM LEVEL 7.2 MG/DL (8.3-10.6); CARBON DIOXIDE LEVEL 24 MMOL/L (20-31); CHLORIDE LEVEL 105 MMOL/L (98-107); CREATININE FOR GFR 0.82 MG/DL (0.70-1.30); GLOMERULAR FILTRATION RATE > 60.0 (>42); GLUCOSE, FASTING 133 MG/DL (74-106); POTASSIUM SERUM 3.6 MMOL/L (3.5-5.1); SODIUM LEVEL 138 MMOL/L (136-145); TOTAL PROTEIN 3.7 G/DL (5.7-8.2)
[2022-05-18] MEDS: LEVALBUTEROL 1.25MG 0.5ML CONCENTRATE NEB NEB SCH ×4 (07:37→20:51)
[2022-05-18 08:00] VITALS: BP 120/65
[2022-05-18] MEDS ORDERED: FUROSEMIDE 20MG/2ML VIAL IV ONE ×2 (08:05→21:00)
[2022-05-18] MEDS: FILGRASTIM 480 MCG/0.8 ML SYRINGE **SC ADMINISTRATION ONLY SC SCH ×2 (09:00→09:56)
[2022-05-18] MEDS: DOCUSATE SODIUM 100MG CAPSULE PO SCH ×2 (09:15→20:14)
[2022-05-18] MEDS: VITAMIN D 1,000 INTERNATIONAL UNITS TABLET PO SCH (09:20)
[2022-05-18] MEDS: OMEPRAZOLE SUSPENSION 20MG 10ML ORAL SYRINGE PO SCH (09:20)
[2022-05-18] MEDS: OYSTER SHELL CALCIUM 500 MG TAB PO SCH (09:21)
[2022-05-18] MEDS: FERROUS SULFATE 325MG TAB PO SCH ×2 (09:21→20:14)
[2022-05-18] MEDS: APIXABAN 5 MG TAB (ELIQUIS) PO SCH ×2 (09:21→20:14)
[2022-05-18] MEDS: ACYCLOVIR 200 MG CAPSULE PO SCH ×2 (09:22→20:14)
[2022-05-18] MEDS: VANCOMYCIN HCL 1,000 MG, VIAL MATE ADAPTER 1 EACH in D5W 250 ML IV SCH ×2 (09:22→20:13)
[2022-05-18 12:00] VITALS: BP 122/65
[2022-05-18 15:46] VITALS: BP 113/63
[2022-05-18 19:32] VITALS: BP 100/56
[2022-05-18] MEDS: SENNA 8.6 MG TAB (SENOKOT) PO SCH (20:14)
[2022-05-19] MEDS: PIPERACILLIN/TAZOBACTAM SOD 3.375 GM in D5W MINI-BAG PLUS 50 ML IV SCH ×4 (00:21→17:13)
[2022-05-19] MEDS: methylPREDNISolone 40MG 1ML VIAL IV SCH (03:09)
[2022-05-19 03:58] VITALS: BP 108/60
[2022-05-19 07:15] VITALS: BP 117/68
[2022-05-19 07:28] LABS: BASO % 1.3 % (0.0-1.0); HEMATOCRIT 23.4 % (42.0-52.0); HEMOGLOBIN 7.7 g/dl (13.5-17.5); LYMPH # 0.1 10^3/uL (1.5-5.0); MEAN CORPUSCULAR HEMOGLOBIN 27.3 pg (27.0-33.0); MEAN CORPUSCULAR HGB CONC 32.9 g/dl (32.0-36.5); MONO # 0.1 10^3/uL (0.0-0.8); MONO % 6.3 % (2.0-8.0); NEUTROPHILS # 1.6 10^3/uL (1.5-8.5); NEUTROPHILS % 72.3 % (36.0-66.0); RED BLOOD COUNT 2.82 10^6/uL (4.30-6.10); WHITE BLOOD COUNT 2.2 10^3/uL (4.0-10.0)
[2022-05-19 07:34] LABS: PLATELET COUNT, AUTOMATED 27 10^3/uL (150-450)
[2022-05-19 07:41] LABS: ALBUMIN 1.3 G/DL (3.2-5.2); ALKALINE PHOSPHATASE 103 U/L (46-116); ALT/SGPT 34 U/L (7.0-40); AST/SGOT 15 U/L (<34); BILIRUBIN,TOTAL 0.7 MG/DL (0.3-1.2); BLOOD UREA NITROGEN 28 MG/DL (9-23); CALCIUM LEVEL 7.7 MG/DL (8.3-10.6); CARBON DIOXIDE LEVEL 30 MMOL/L (20-31); CHLORIDE LEVEL 102 MMOL/L (98-107); CREATININE FOR GFR 0.99 MG/DL (0.70-1.30); GLOMERULAR FILTRATION RATE > 60.0 (>42); GLUCOSE, FASTING 128 MG/DL (74-106); POTASSIUM SERUM 2.9 MMOL/L (3.5-5.1); SODIUM LEVEL 139 MMOL/L (136-145); TOTAL PROTEIN 3.9 G/DL (5.7-8.2)
[2022-05-19] MEDS: LEVALBUTEROL 1.25MG 0.5ML CONCENTRATE NEB NEB SCH ×4 (07:51→19:47)
[2022-05-19] MEDS ORDERED: POTASSIUM CHLORIDE 10% LIQ 20MEQ/15ML UDC PO ONE ×2 (08:00→11:00)
[2022-05-19] MEDS: FILGRASTIM 480 MCG/0.8 ML SYRINGE **SC ADMINISTRATION ONLY SC SCH (08:48)
[2022-05-19] MEDS: OYSTER SHELL CALCIUM 500 MG TAB PO SCH (08:48)
[2022-05-19] MEDS: LACTOBACILLUS ACIDOPHILUS CAP (BACID) PO SCH ×2 (08:48→17:13)
[2022-05-19] MEDS: ACYCLOVIR 200 MG CAPSULE PO SCH ×2 (08:48→20:34)
[2022-05-19] MEDS: OMEPRAZOLE SUSPENSION 20MG 10ML ORAL SYRINGE PO SCH (08:48)
[2022-05-19] MEDS: DOCUSATE SODIUM 100MG CAPSULE PO SCH ×2 (08:49→20:33)
[2022-05-19] MEDS: VITAMIN D 1,000 INTERNATIONAL UNITS TABLET PO SCH (08:49)
[2022-05-19] MEDS: FERROUS SULFATE 325MG TAB PO SCH ×2 (08:49→20:34)
[2022-05-19] MEDS: FUROSEMIDE 40MG/4ML VIAL IV SCH ×2 (08:49→17:13)
[2022-05-19] MEDS: APIXABAN 5 MG TAB (ELIQUIS) PO SCH ×2 (08:49→20:34)
[2022-05-19] MEDS ORDERED: FUROSEMIDE 40MG/4ML VIAL IV SCH (09:00)
[2022-05-19] MEDS: VANCOMYCIN HCL 750 MG, VIAL MATE ADAPTER 1 EACH in D5W 250 ML IV SCH ×2 (12:01→23:00)
[2022-05-19] MEDS: SENNA 8.6 MG TAB (SENOKOT) PO SCH (20:33)
[2022-05-19 20:38] VITALS: BP 106/62
[2022-05-19 21:48] LABS: BLOOD UREA NITROGEN 26 MG/DL (9-23); CALCIUM LEVEL 7.7 MG/DL (8.3-10.6); CARBON DIOXIDE LEVEL 33 MMOL/L (20-31); CHLORIDE LEVEL 101 MMOL/L (98-107); CREATININE FOR GFR 1.07 MG/DL (0.70-1.30); GLOMERULAR FILTRATION RATE > 60.0 (>42); GLUCOSE, FASTING 106 MG/DL (74-106); SODIUM LEVEL 140 MMOL/L (136-145)
[2022-05-19] MEDS: POTASSIUM CHLORIDE 10% LIQ 20MEQ/15ML UDC PO SCH (23:00)
[2022-05-20] MEDS: POTASSIUM CHLORIDE 10% LIQ 20MEQ/15ML UDC PO SCH (00:45)
[2022-05-20] MEDS: PIPERACILLIN/TAZOBACTAM SOD 3.375 GM in D5W MINI-BAG PLUS 50 ML IV SCH ×5 (00:45→23:36)
[2022-05-20 03:58] VITALS: BP 116/58
[2022-05-20 06:07] LABS: BASO # 0.1 10^3/uL (0.0-0.2); BASO % 1.3 % (0.0-1.0); EOS # 0.1 10^3/uL (0.0-0.5); EOS % 1.1 % (0.0-3.0); HEMATOCRIT 26.6 % (42.0-52.0); HEMOGLOBIN 8.6 g/dl (13.5-17.5); LYMPH # 0.1 10^3/uL (1.5-5.0); LYMPH % 1.5 % (24.0-44.0); MEAN CORPUSCULAR HEMOGLOBIN 27.1 pg (27.0-33.0); MEAN CORPUSCULAR HGB CONC 32.3 g/dl (32.0-36.5); MEAN CORPUSCULAR VOLUME 83.9 fl (80.0-96.0); MONO # 0.1 10^3/uL (0.0-0.8); MONO % 2.6 % (2.0-8.0); NEUTROPHILS # 3.9 10^3/uL (1.5-8.5); NEUTROPHILS % 83.3 % (36.0-66.0); RED BLOOD COUNT 3.17 10^6/uL (4.30-6.10); WHITE BLOOD COUNT 4.6 10^3/uL (4.0-10.0)
[2022-05-20 06:09] LABS: PLATELET COUNT, AUTOMATED 27 10^3/uL (150-450)
[2022-05-20 07:21] LABS: ALBUMIN 1.5 G/DL (3.2-5.2); ALKALINE PHOSPHATASE 104 U/L (46-116); ALT/SGPT 34 U/L (7.0-40); AST/SGOT 15 U/L (<34); BILIRUBIN,TOTAL 0.8 MG/DL (0.3-1.2); BLOOD UREA NITROGEN 26 MG/DL (9-23); CALCIUM LEVEL 7.8 MG/DL (8.3-10.6); CARBON DIOXIDE LEVEL 28 MMOL/L (20-31); CHLORIDE LEVEL 103 MMOL/L (98-107); CREATININE FOR GFR 1.03 MG/DL (0.70-1.30); GLOMERULAR FILTRATION RATE > 60.0 (>42); GLUCOSE, FASTING 79 MG/DL (74-106); POTASSIUM SERUM 3.9 MMOL/L (3.5-5.1); SODIUM LEVEL 141 MMOL/L (136-145)
[2022-05-20] MEDS: LEVALBUTEROL 1.25MG 0.5ML CONCENTRATE NEB NEB SCH ×4 (07:27→19:02)
[2022-05-20 08:00] VITALS: BP 111/62
[2022-05-20] MEDS: OMEPRAZOLE SUSPENSION 20MG 10ML ORAL SYRINGE PO SCH (08:47)
[2022-05-20] MEDS: LACTOBACILLUS ACIDOPHILUS CAP (BACID) PO SCH ×2 (08:48→18:30)
[2022-05-20] MEDS: FUROSEMIDE 40MG/4ML VIAL IV SCH ×2 (08:48→17:09)
[2022-05-20] MEDS: VITAMIN D 1,000 INTERNATIONAL UNITS TABLET PO SCH (08:49)
[2022-05-20] MEDS: OYSTER SHELL CALCIUM 500 MG TAB PO SCH (08:49)
[2022-05-20] MEDS: predniSONE 20 MG TAB PO SCH (08:49)
[2022-05-20] MEDS: ACYCLOVIR 200 MG CAPSULE PO SCH ×2 (08:49→20:53)
[2022-05-20] MEDS: FERROUS SULFATE 325MG TAB PO SCH ×2 (08:50→20:53)
[2022-05-20] MEDS: ATORVASTATIN 20 MG TAB PO SCH (08:50)
[2022-05-20] MEDS: APIXABAN 5 MG TAB (ELIQUIS) PO SCH ×2 (08:50→20:53)
[2022-05-20] MEDS: DOCUSATE SODIUM 100MG CAPSULE PO SCH ×2 (08:50→20:49)
[2022-05-20] MEDS ORDERED: predniSONE 20 MG TAB PO SCH (09:00)
[2022-05-20] MEDS: FILGRASTIM 480 MCG/0.8 ML SYRINGE **SC ADMINISTRATION ONLY SC SCH (10:33)
[2022-05-20 12:00] VITALS: BP 105/55
[2022-05-20 12:39] VITALS: BP 101/65
[2022-05-20] MEDS: VANCOMYCIN HCL 750 MG, VIAL MATE ADAPTER 1 EACH in D5W 250 ML IV SCH (15:24)
[2022-05-20 20:00] VITALS: BP 114/55
[2022-05-20] MEDS: SENNA 8.6 MG TAB (SENOKOT) PO SCH (20:49)
[2022-05-21] VITALS (9 sets, daily range): BP systolic 97–119; BP diastolic 51–88
[2022-05-21] MEDS: VANCOMYCIN HCL 750 MG, VIAL MATE ADAPTER 1 EACH in D5W 250 ML IV SCH (03:13)
[2022-05-21 05:44] LABS: BASO % 0.6 % (0.0-1.0); EOS % 0.4 % (0.0-3.0); HEMATOCRIT 21.4 % (42.0-52.0); LYMPH # 0.1 10^3/uL (1.5-5.0); LYMPH % 1.5 % (24.0-44.0); MEAN CORPUSCULAR HEMOGLOBIN 26.8 pg (27.0-33.0); MEAN CORPUSCULAR HGB CONC 32.2 g/dl (32.0-36.5); MEAN CORPUSCULAR VOLUME 83.3 fl (80.0-96.0); MONO # 0.1 10^3/uL (0.0-0.8); MONO % 2.5 % (2.0-8.0); NEUTROPHILS # 4.8 10^3/uL (1.5-8.5); NEUTROPHILS % 92.1 % (36.0-66.0); RED BLOOD COUNT 2.57 10^6/uL (4.30-6.10); WHITE BLOOD COUNT 5.2 10^3/uL (4.0-10.0)
[2022-05-21 05:47] LABS: HEMOGLOBIN 6.9 g/dl (13.5-17.5); PLATELET COUNT, AUTOMATED 25 10^3/uL (150-450)
[2022-05-21 06:12] LABS: ALBUMIN 1.3 G/DL (3.2-5.2); ALKALINE PHOSPHATASE 91 U/L (46-116); ALT/SGPT 27 U/L (7.0-40); AST/SGOT 13 U/L (<34); BILIRUBIN,TOTAL 0.7 MG/DL (0.3-1.2); BLOOD UREA NITROGEN 27 MG/DL (9-23); CALCIUM LEVEL 7.4 MG/DL (8.3-10.6); CARBON DIOXIDE LEVEL 29 MMOL/L (20-31); CHLORIDE LEVEL 98 MMOL/L (98-107); CREATININE FOR GFR 1.06 MG/DL (0.70-1.30); GLOMERULAR FILTRATION RATE > 60.0 (>42); GLUCOSE, FASTING 113 MG/DL (74-106); POTASSIUM SERUM 3.1 MMOL/L (3.5-5.1); SODIUM LEVEL 139 MMOL/L (136-145); TOTAL PROTEIN 3.5 G/DL (5.7-8.2)
[2022-05-21] MEDS: PIPERACILLIN/TAZOBACTAM SOD 3.375 GM in D5W MINI-BAG PLUS 50 ML IV SCH ×2 (06:42→11:42)
[2022-05-21] MEDS: LEVALBUTEROL 1.25MG 0.5ML CONCENTRATE NEB NEB SCH ×4 (07:56→19:15)
[2022-05-21] MEDS: LACTOBACILLUS ACIDOPHILUS CAP (BACID) PO SCH ×2 (08:00→17:16)
[2022-05-21 08:08] LABS: HEMATOCRIT 22.8 % (42.0-52.0); HEMOGLOBIN 7.5 g/dl (13.5-17.5); MEAN CORPUSCULAR HEMOGLOBIN 27.4 pg (27.0-33.0); MEAN CORPUSCULAR HGB CONC 32.9 g/dl (32.0-36.5); MEAN CORPUSCULAR VOLUME 83.2 fl (80.0-96.0); RED BLOOD COUNT 2.74 10^6/uL (4.30-6.10); WHITE BLOOD COUNT 5.7 10^3/uL (4.0-10.0)
[2022-05-21 08:15] LABS: PLATELET COUNT, AUTOMATED 27 10^3/uL (150-450)
[2022-05-21] MEDS ORDERED: FILGRASTIM 300MCG 0.5ML SYRINGE **SC ADMINISTRATION ONLY SC SCH (09:00)
[2022-05-21] MEDS: FUROSEMIDE 40MG/4ML VIAL IV SCH ×2 (09:00→09:45)
[2022-05-21] MEDS: DOCUSATE SODIUM 100MG CAPSULE PO SCH ×2 (09:00→21:00)
[2022-05-21] MEDS: OYSTER SHELL CALCIUM 500 MG TAB PO SCH (09:45)
[2022-05-21] MEDS: ACYCLOVIR 200 MG CAPSULE PO SCH ×2 (09:45→21:07)
[2022-05-21] MEDS: VITAMIN D 1,000 INTERNATIONAL UNITS TABLET PO SCH (09:45)
[2022-05-21] MEDS: FERROUS SULFATE 325MG TAB PO SCH (09:45)
[2022-05-21] MEDS: APIXABAN 5 MG TAB (ELIQUIS) PO SCH ×2 (09:45→21:02)
[2022-05-21] MEDS: predniSONE 20 MG TAB PO SCH (09:45)
[2022-05-21] MEDS: OMEPRAZOLE SUSPENSION 20MG 10ML ORAL SYRINGE PO SCH (09:46)
[2022-05-21] MEDS: ONDANSETRON 4MG TAB PO PRN (09:59)
[2022-05-21 11:09] LABS: INR 1.43; PROTHROMBIN TIME 17.7 SECONDS (12.5-14.5)
[2022-05-21] MEDS: FUROSEMIDE 40 MG TAB PO SCH (11:42)
[2022-05-21] MEDS: POTASSIUM CHLORIDE 10MEQ SR TABLET PO SCH ×2 (11:43→21:01)
[2022-05-21 20:34] LABS: MEAN CORPUSCULAR HEMOGLOBIN 27.5 pg (27.0-33.0); MEAN CORPUSCULAR HGB CONC 32.5 g/dl (32.0-36.5); MEAN CORPUSCULAR VOLUME 84.7 fl (80.0-96.0); RED BLOOD COUNT 2.36 10^6/uL (4.30-6.10); WHITE BLOOD COUNT 6.2 10^3/uL (4.0-10.0)
[2022-05-21 20:41] LABS: PLATELET COUNT, AUTOMATED 51 10^3/uL (150-450)
[2022-05-21 20:44] LABS: HEMOGLOBIN 6.5 g/dl (13.5-17.5)
[2022-05-21] MEDS: SENNA 8.6 MG TAB (SENOKOT) PO SCH (21:00)
[2022-05-22] VITALS (9 sets, daily range): BP systolic 97–106; BP diastolic 51–58
[2022-05-22 00:22] LABS: MEAN CORPUSCULAR HGB CONC 33.2 g/dl (32.0-36.5); MEAN CORPUSCULAR VOLUME 84.4 fl (80.0-96.0); RED BLOOD COUNT 2.43 10^6/uL (4.30-6.10); WHITE BLOOD COUNT 6.5 10^3/uL (4.0-10.0)
[2022-05-22 00:25] LABS: HEMOGLOBIN 6.8 g/dl (13.5-17.5); PLATELET COUNT, AUTOMATED 47 10^3/uL (150-450)
[2022-05-22 00:26] LABS: HEMATOCRIT 20.5 % (42.0-52.0)
[2022-05-22 05:45] LABS: HEMATOCRIT 22.5 % (42.0-52.0); HEMOGLOBIN 7.2 g/dl (13.5-17.5); MEAN CORPUSCULAR HEMOGLOBIN 26.9 pg (27.0-33.0); RED BLOOD COUNT 2.68 10^6/uL (4.30-6.10); WHITE BLOOD COUNT 6.7 10^3/uL (4.0-10.0)
[2022-05-22 05:46] LABS: PLATELET COUNT, AUTOMATED 49 10^3/uL (150-450)
[2022-05-22 06:03] LABS: BLOOD UREA NITROGEN 27 MG/DL (9-23); CALCIUM LEVEL 7.6 MG/DL (8.3-10.6); CARBON DIOXIDE LEVEL 32 MMOL/L (20-31); CHLORIDE LEVEL 100 MMOL/L (98-107); CREATININE FOR GFR 1.06 MG/DL (0.70-1.30); GLOMERULAR FILTRATION RATE > 60.0 (>42); GLUCOSE, FASTING 103 MG/DL (74-106); POTASSIUM SERUM 3.6 MMOL/L (3.5-5.1); SODIUM LEVEL 141 MMOL/L (136-145)
[2022-05-22 07:01] LABS: ANISOCYTOSIS 1+; LYMPHOCYTES 3 % (16-44); MONOCYTES 2 % (0-5); NEUTROPHILS 92 % (28-66); PLATELET ESTIMATE MARKED DECREASE (NORMAL)
[2022-05-22 07:02] LABS: OVALOCYTES 3+
[2022-05-22] MEDS: LEVALBUTEROL 1.25MG 0.5ML CONCENTRATE NEB NEB SCH ×4 (07:49→19:40)
[2022-05-22] MEDS: predniSONE 20 MG TAB PO SCH (08:27)
[2022-05-22] MEDS: LACTOBACILLUS ACIDOPHILUS CAP (BACID) PO SCH ×2 (08:27→17:35)
[2022-05-22] MEDS: ACYCLOVIR 200 MG CAPSULE PO SCH ×2 (08:28→20:46)
[2022-05-22] MEDS: OYSTER SHELL CALCIUM 500 MG TAB PO SCH (08:28)
[2022-05-22] MEDS: ATORVASTATIN 20 MG TAB PO SCH (08:28)
[2022-05-22] MEDS: FUROSEMIDE 40 MG TAB PO SCH (08:28)
[2022-05-22] MEDS: VITAMIN D 1,000 INTERNATIONAL UNITS TABLET PO SCH (08:28)
[2022-05-22] MEDS: DOCUSATE SODIUM 100MG CAPSULE PO SCH ×2 (08:29→20:46)
[2022-05-22] MEDS: OMEPRAZOLE SUSPENSION 20MG 10ML ORAL SYRINGE PO SCH (08:29)
[2022-05-22] MEDS: METOPROLOL SUCC (TopROL XL) 50MG **XL** TAB PO SCH (08:29)
[2022-05-22] MEDS ORDERED: FUROSEMIDE 40 MG TAB PO ONE (14:15)
[2022-05-22 18:53] LABS: PLATELET COUNT, AUTOMATED 54 10^3/uL (150-450)
[2022-05-22] MEDS: SENNA 8.6 MG TAB (SENOKOT) PO SCH (20:46)
[2022-05-23] VITALS: BP 108/59
[2022-05-23 04:00] VITALS: BP 111/51
[2022-05-23 04:21] LABS: HEMATOCRIT 23.1 % (42.0-52.0); HEMOGLOBIN 7.6 g/dl (13.5-17.5); MEAN CORPUSCULAR HEMOGLOBIN 27.5 pg (27.0-33.0); MEAN CORPUSCULAR HGB CONC 32.9 g/dl (32.0-36.5); MEAN CORPUSCULAR VOLUME 83.7 fl (80.0-96.0); RED BLOOD COUNT 2.76 10^6/uL (4.30-6.10); WHITE BLOOD COUNT 4.7 10^3/uL (4.0-10.0)
[2022-05-23 04:22] LABS: PLATELET COUNT, AUTOMATED 52 10^3/uL (150-450)
[2022-05-23 04:35] LABS: BLOOD UREA NITROGEN 27 MG/DL (9-23); CALCIUM LEVEL 7.8 MG/DL (8.3-10.6); CARBON DIOXIDE LEVEL 37 MMOL/L (20-31); CHLORIDE LEVEL 99 MMOL/L (98-107); CREATININE FOR GFR 1.17 MG/DL (0.70-1.30); GLOMERULAR FILTRATION RATE > 60.0 (>42); GLUCOSE, FASTING 92 MG/DL (74-106); POTASSIUM SERUM 3.4 MMOL/L (3.5-5.1); SODIUM LEVEL 141 MMOL/L (136-145)
[2022-05-23 04:58] LABS: LYMPHOCYTES 1 % (16-44); MONOCYTES 2 % (0-5); NEUTROPHILS 95 % (28-66); PLATELET ESTIMATE MARKED DECREASE (NORMAL)
[2022-05-23 04:59] LABS: ANISOCYTOSIS 2+; OVALOCYTES 3+; POIKILOCYTOSIS 1+; POLYCHROMASIA 1+
[2022-05-23 05:00] LABS: SCHISTOCYTES 1+
[2022-05-23 07:45] VITALS: BP 98/56
[2022-05-23] MEDS: LEVALBUTEROL 1.25MG 0.5ML CONCENTRATE NEB NEB SCH ×4 (08:21→19:46)
[2022-05-23] MEDS: ACYCLOVIR 200 MG CAPSULE PO SCH ×2 (08:34→20:20)
[2022-05-23] MEDS: predniSONE 20 MG TAB PO SCH (08:34)
[2022-05-23] MEDS: DOCUSATE SODIUM 100MG CAPSULE PO SCH ×2 (08:34→20:21)
[2022-05-23] MEDS: OYSTER SHELL CALCIUM 500 MG TAB PO SCH (08:35)
[2022-05-23] MEDS: LACTOBACILLUS ACIDOPHILUS CAP (BACID) PO SCH ×2 (08:35→17:13)
[2022-05-23] MEDS: FERROUS SULFATE 325MG TAB PO SCH (08:35)
[2022-05-23] MEDS: VITAMIN D 1,000 INTERNATIONAL UNITS TABLET PO SCH (08:35)
[2022-05-23] MEDS: TORSEMIDE 20 MG TAB PO SCH (08:35)
[2022-05-23] MEDS: OMEPRAZOLE SUSPENSION 20MG 10ML ORAL SYRINGE PO SCH (08:35)
[2022-05-23] MEDS: METOPROLOL SUCC (TopROL XL) 50MG **XL** TAB PO SCH (09:00)
[2022-05-23] MEDS: POTASSIUM CHLORIDE 10MEQ SR TABLET PO SCH ×2 (10:35→20:21)
[2022-05-23] MEDS: ramipriL 1.25 MG CAP PO SCH (12:51)
[2022-05-23 15:45] VITALS: BP 104/55
[2022-05-23 20:00] VITALS: BP 102/54
[2022-05-23] MEDS: SENNA 8.6 MG TAB (SENOKOT) PO SCH (20:21)
[2022-05-24] VITALS (16 sets, daily range): BP systolic 76–122; BP diastolic 50–75
[2022-05-24] MEDS ORDERED: NS 250 ML IV ONE ×2 (02:05)
[2022-05-24] MEDS ORDERED: diltiaZEM 125 MG in NS 100 ML IV SCH ×2 (04:00→15:00)
[2022-05-24 05:20] LABS: MEAN CORPUSCULAR VOLUME 84.5 fl (80.0-96.0); RED BLOOD COUNT 2.96 10^6/uL (4.30-6.10); WHITE BLOOD COUNT 3.3 10^3/uL (4.0-10.0)
[2022-05-24 05:26] LABS: PLATELET COUNT, AUTOMATED 49 10^3/uL (150-450)
[2022-05-24 05:40] LABS: ATYPICAL LYMPH 1 % (0-5); EOSINOPHILS 1 % (0-3); LYMPHOCYTES 1 % (16-44); MONOCYTES 3 % (0-5); NEUTROPHILS 94 % (28-66)
[2022-05-24 05:41] LABS: ANISOCYTOSIS 1+; OVALOCYTES 3+
[2022-05-24 05:42] LABS: PLATELET ESTIMATE MARKED DECREASE (NORMAL); POIKILOCYTOSIS 1+; SCHISTOCYTES 1+
[2022-05-24 05:44] LABS: BLOOD UREA NITROGEN 30 MG/DL (9-23); CALCIUM LEVEL 7.8 MG/DL (8.3-10.6); CARBON DIOXIDE LEVEL 35 MMOL/L (20-31); CHLORIDE LEVEL 99 MMOL/L (98-107); CREATININE FOR GFR 1.16 MG/DL (0.70-1.30); GLOMERULAR FILTRATION RATE > 60.0 (>42); GLUCOSE, FASTING 88 MG/DL (74-106); POTASSIUM SERUM 4.1 MMOL/L (3.5-5.1); SODIUM LEVEL 141 MMOL/L (136-145)
[2022-05-24] MEDS: LEVALBUTEROL 1.25MG 0.5ML CONCENTRATE NEB NEB SCH ×4 (07:18→20:59)
[2022-05-24] MEDS: ramipriL 1.25 MG CAP PO SCH (08:02)
[2022-05-24] MEDS: METOPROLOL SUCC (TopROL XL) 50MG **XL** TAB PO SCH (08:02)
[2022-05-24 08:35] LABS: INR 1.1; PROTHROMBIN TIME 14.4 SECONDS (12.5-14.5)
[2022-05-24] MEDS: TORSEMIDE 20 MG TAB PO SCH (09:00)
[2022-05-24] MEDS: DOCUSATE SODIUM 100MG CAPSULE PO SCH ×2 (09:00→20:45)
[2022-05-24] MEDS: ACYCLOVIR 200 MG CAPSULE PO SCH ×2 (09:02→22:00)
[2022-05-24] MEDS: OYSTER SHELL CALCIUM 500 MG TAB PO SCH (09:02)
[2022-05-24] MEDS: predniSONE 20 MG TAB PO SCH (09:02)
[2022-05-24] MEDS: VITAMIN D 1,000 INTERNATIONAL UNITS TABLET PO SCH (09:02)
[2022-05-24] MEDS: OMEPRAZOLE SUSPENSION 20MG 10ML ORAL SYRINGE PO SCH (09:02)
[2022-05-24] MEDS: LACTOBACILLUS ACIDOPHILUS CAP (BACID) PO SCH ×2 (09:02→18:14)
[2022-05-24] MEDS: ATORVASTATIN 20 MG TAB PO SCH (09:02)
[2022-05-24 12:51] LABS: PLATELET COUNT, AUTOMATED 43 10^3/uL (150-450)
[2022-05-24 14:18] LABS: PLTBLUE- EDTA FREE CALC 33 K/mm3 (172-450)
[2022-05-24 14:40] LABS: PLTBLUE- EDTA FREE MACHINE 30 10^3/uL (172-450)
[2022-05-24] MEDS ORDERED: ISOVUE-370 76% 100ML VIAL As Ordered ONE (15:40)
[2022-05-24 15:48] LABS: PLATELET COUNT, AUTOMATED 40 10^3/uL (150-450)
[2022-05-24 15:49] LABS: PLATELET COUNT, AUTOMATED 40 10^3/uL (150-450)
[2022-05-24 16:12] LABS: INR 1.12; PROTHROMBIN TIME 14.6 SECONDS (12.5-14.5)
[2022-05-24 16:16] LABS: D-DIMER QUANT 1512.84 ng/ml (<500)
[2022-05-24 16:22] LABS: PARTIAL THROMBOPLASTIN TIME 26.5 SECONDS (24.8-34.2)
[2022-05-24] MEDS ORDERED: SALIVA SUBSTITUTE(MOUTHKOTE) BTL MT PRN (17:20)
[2022-05-24] MEDS: DRONABINOL 2.5MG CAP (MARINOL) PO SCH ×2 (18:14→22:00)
[2022-05-24] MEDS: SENNA 8.6 MG TAB (SENOKOT) PO SCH (20:46)
[2022-05-25] MEDS ORDERED: diltiaZEM 125 MG in NS 100 ML IV SCH (04:00)
[2022-05-25 04:26] VITALS: BP 113/58
[2022-05-25 05:22] LABS: HEMATOCRIT 22.3 % (42.0-52.0); HEMOGLOBIN 7.1 g/dl (13.5-17.5); MEAN CORPUSCULAR HEMOGLOBIN 27.3 pg (27.0-33.0); MEAN CORPUSCULAR HGB CONC 31.8 g/dl (32.0-36.5); MEAN CORPUSCULAR VOLUME 85.8 fl (80.0-96.0); WHITE BLOOD COUNT 1.8 10^3/uL (4.0-10.0)
[2022-05-25 05:25] LABS: PLATELET COUNT, AUTOMATED 42 10^3/uL (150-450)
[2022-05-25 05:41] LABS: LYMPHOCYTES 8 % (16-44); MONOCYTES 2 % (0-5); NEUTROPHILS 89 % (28-66)
[2022-05-25 05:42] LABS: ANISOCYTOSIS 1+; PLATELET ESTIMATE DECREASED (NORMAL)
[2022-05-25 05:43] LABS: POIKILOCYTOSIS 1+; SCHISTOCYTES 1+
[2022-05-25 05:44] LABS: OVALOCYTES 3+
[2022-05-25 05:49] LABS: BLOOD UREA NITROGEN 34 MG/DL (9-23); CALCIUM LEVEL 7.9 MG/DL (8.3-10.6); CARBON DIOXIDE LEVEL 36 MMOL/L (20-31); CHLORIDE LEVEL 98 MMOL/L (98-107); CREATININE FOR GFR 1.24 MG/DL (0.70-1.30); GLOMERULAR FILTRATION RATE > 60.0 (>42); GLUCOSE, FASTING 86 MG/DL (74-106); POTASSIUM SERUM 3.4 MMOL/L (3.5-5.1); SODIUM LEVEL 140 MMOL/L (136-145)
[2022-05-25 06:00] VITALS: BP 112/68
[2022-05-25] MEDS: LEVALBUTEROL 1.25MG 0.5ML CONCENTRATE NEB NEB SCH ×4 (07:37→20:35)
[2022-05-25 07:54] VITALS: BP 104/57
[2022-05-25] MEDS: METOPROLOL SUCC (TopROL XL) 50MG **XL** TAB PO SCH (08:39)
[2022-05-25] MEDS: DRONABINOL 2.5MG CAP (MARINOL) PO SCH ×4 (08:40→21:07)
[2022-05-25] MEDS: predniSONE 20 MG TAB PO SCH (08:40)
[2022-05-25] MEDS: ramipriL 1.25 MG CAP PO SCH (08:40)
[2022-05-25] MEDS: OYSTER SHELL CALCIUM 500 MG TAB PO SCH (08:40)
[2022-05-25] MEDS: OMEPRAZOLE SUSPENSION 20MG 10ML ORAL SYRINGE PO SCH (08:41)
[2022-05-25] MEDS: VITAMIN D 1,000 INTERNATIONAL UNITS TABLET PO SCH (08:41)
[2022-05-25] MEDS: FERROUS SULFATE 325MG TAB PO SCH (08:41)
[2022-05-25] MEDS: DOCUSATE SODIUM 100MG CAPSULE PO SCH ×2 (08:41→21:00)
[2022-05-25] MEDS: ACYCLOVIR 200 MG CAPSULE PO SCH ×2 (08:41→21:07)
[2022-05-25] MEDS: LACTOBACILLUS ACIDOPHILUS CAP (BACID) PO SCH ×2 (08:41→17:08)
[2022-05-25] MEDS: TORSEMIDE 20 MG TAB PO SCH (08:41)
[2022-05-25] MEDS: ONDANSETRON 4MG TAB PO PRN (08:55)
[2022-05-25 16:00] VITALS: BP_SYST 90; BP_DIAS 32; BP_DIAS 58
[2022-05-25 18:51] VITALS: BP 102/60
[2022-05-25 20:32] VITALS: BP 98/52
[2022-05-25] MEDS ORDERED: DIGOXIN INJ 0.5 MG/2 ML AMP IV STA (20:38)
[2022-05-25] MEDS: SENNA 8.6 MG TAB (SENOKOT) PO SCH (21:00)
[2022-05-25] MEDS: methylPREDNISolone 40MG 1ML VIAL IV SCH (21:12)
[2022-05-25] MEDS: POTASSIUM CHLORIDE 10MEQ SR TABLET PO SCH (21:12)
[2022-05-26] VITALS (9 sets, daily range): BP systolic 89–129; BP diastolic 51–63
[2022-05-26] MEDS ORDERED: DIGOXIN INJ 0.5 MG/2 ML AMP IV ONE (02:30)
[2022-05-26] MEDS: methylPREDNISolone 40MG 1ML VIAL IV SCH ×3 (05:46→20:37)
[2022-05-26] MEDS: LEVALBUTEROL 1.25MG 0.5ML CONCENTRATE NEB NEB SCH ×4 (06:58→21:46)
[2022-05-26] MEDS: METOPROLOL SUCC (TopROL XL) 50MG **XL** TAB PO SCH (08:05)
[2022-05-26] MEDS: ramipriL 1.25 MG CAP PO SCH (08:06)
[2022-05-26] MEDS: DRONABINOL 2.5MG CAP (MARINOL) PO SCH ×4 (08:19→20:37)
[2022-05-26] MEDS: OMEPRAZOLE SUSPENSION 20MG 10ML ORAL SYRINGE PO SCH (08:19)
[2022-05-26] MEDS: ACYCLOVIR 200 MG CAPSULE PO SCH ×2 (08:20→20:37)
[2022-05-26] MEDS: LACTOBACILLUS ACIDOPHILUS CAP (BACID) PO SCH ×2 (08:20→17:16)
[2022-05-26] MEDS: OYSTER SHELL CALCIUM 500 MG TAB PO SCH (08:20)
[2022-05-26] MEDS: DOCUSATE SODIUM 100MG CAPSULE PO SCH ×2 (08:20→20:37)
[2022-05-26] MEDS: VITAMIN D 1,000 INTERNATIONAL UNITS TABLET PO SCH (08:21)
[2022-05-26] MEDS: TORSEMIDE 20 MG TAB PO SCH (08:21)
[2022-05-26] MEDS: POTASSIUM CHLORIDE 10MEQ SR TABLET PO SCH (08:21)
[2022-05-26 08:33] LABS: MEAN CORPUSCULAR HEMOGLOBIN 27.2 pg (27.0-33.0); MEAN CORPUSCULAR HGB CONC 32.2 g/dl (32.0-36.5); MEAN CORPUSCULAR VOLUME 84.5 fl (80.0-96.0); RED BLOOD COUNT 2.39 10^6/uL (4.30-6.10); WHITE BLOOD COUNT 2.3 10^3/uL (4.0-10.0)
[2022-05-26 08:37] LABS: HEMOGLOBIN 6.5 g/dl (13.5-17.5); PLATELET COUNT, AUTOMATED 38 10^3/uL (150-450)
[2022-05-26 08:38] LABS: HEMATOCRIT 20.2 % (42.0-52.0)
[2022-05-26 08:41] LABS: CALCIUM LEVEL 7.5 MG/DL (8.3-10.6); CREATININE FOR GFR 1.56 MG/DL (0.70-1.30); GLOMERULAR FILTRATION RATE 46.9 (>42)
[2022-05-26 09:04] LABS: ATYPICAL LYMPH 1 % (0-5); LYMPHOCYTES 2 % (16-44); METAMYELOCYTES 1 % (0-0); MONOCYTES 3 % (0-5); MYELOCYTES 1 % (0-0); NEUTROPHILS 85 % (28-66)
[2022-05-26 09:05] LABS: ANISOCYTOSIS 1+; OVALOCYTES 2+
[2022-05-26 09:06] LABS: POIKILOCYTOSIS 1+; SCHISTOCYTES 1+
[2022-05-26 09:07] LABS: TEAR DROP CELLS 1+
[2022-05-26 09:08] LABS: PLATELET ESTIMATE MARKED DECREASE (NORMAL)
[2022-05-26 11:54] LABS: HEMATOCRIT 21.2 % (42.0-52.0)
[2022-05-26 11:58] LABS: HEMOGLOBIN 6.8 g/dl (13.5-17.5)
[2022-05-26] MEDS: SENNA 8.6 MG TAB (SENOKOT) PO SCH (20:37)
[2022-05-27] VITALS (15 sets, daily range): BP systolic 88–116; BP diastolic 49–58
[2022-05-27] MEDS: methylPREDNISolone 40MG 1ML VIAL IV SCH ×2 (05:16→13:28)
[2022-05-27 05:39] LABS: HEMATOCRIT 22.7 % (42.0-52.0); HEMOGLOBIN 7.3 g/dl (13.5-17.5); MEAN CORPUSCULAR HEMOGLOBIN 27.5 pg (27.0-33.0); MEAN CORPUSCULAR HGB CONC 32.2 g/dl (32.0-36.5); MEAN CORPUSCULAR VOLUME 85.7 fl (80.0-96.0); RED BLOOD COUNT 2.65 10^6/uL (4.30-6.10); WHITE BLOOD COUNT 2.4 10^3/uL (4.0-10.0)
[2022-05-27 05:40] LABS: PLATELET COUNT, AUTOMATED 59 10^3/uL (150-450)
[2022-05-27 05:51] LABS: INR 1.08; PROTHROMBIN TIME 14.2 SECONDS (12.5-14.5)
[2022-05-27 06:05] LABS: CALCIUM LEVEL 7.3 MG/DL (8.3-10.6); CREATININE FOR GFR 1.62 MG/DL (0.70-1.30); GLOMERULAR FILTRATION RATE 44.9 (>42)
[2022-05-27 06:53] LABS: BLAST CELLS 1 % (0-0); LYMPHOCYTES 2 % (16-44); MONOCYTES 2 % (0-5); NEUTROPHILS 82 % (28-66)
[2022-05-27 06:54] LABS: PLATELET ESTIMATE DECREASED (NORMAL)
[2022-05-27 06:55] LABS: MICROCYTOSIS 1+; OVALOCYTES 3+
[2022-05-27 06:56] LABS: ANISOCYTOSIS 1+
[2022-05-27] MEDS: LEVALBUTEROL 1.25MG 0.5ML CONCENTRATE NEB NEB SCH ×4 (07:40→20:00)
[2022-05-27] MEDS: VITAMIN D 1,000 INTERNATIONAL UNITS TABLET PO SCH (08:13)
[2022-05-27] MEDS: DRONABINOL 2.5MG CAP (MARINOL) PO SCH ×4 (08:13→21:14)
[2022-05-27] MEDS: ATORVASTATIN 20 MG TAB PO SCH (08:13)
[2022-05-27] MEDS: LACTOBACILLUS ACIDOPHILUS CAP (BACID) PO SCH ×2 (08:13→17:17)
[2022-05-27] MEDS: FERROUS SULFATE 325MG TAB PO SCH (08:14)
[2022-05-27] MEDS: OMEPRAZOLE SUSPENSION 20MG 10ML ORAL SYRINGE PO SCH (08:14)
[2022-05-27] MEDS: DOCUSATE SODIUM 100MG CAPSULE PO SCH ×2 (08:14→21:14)
[2022-05-27] MEDS: ACYCLOVIR 200 MG CAPSULE PO SCH ×2 (08:14→21:14)
[2022-05-27] MEDS: DIGOXIN 0.125 MG TAB PO SCH (08:14)
[2022-05-27] MEDS: OYSTER SHELL CALCIUM 500 MG TAB PO SCH (08:14)
[2022-05-27 08:15] LABS: ALBUMIN 1.6 G/DL (3.2-5.2); BILIRUBIN,DIRECT 0.3 MG/DL (<0.4); BILIRUBIN,TOTAL 0.8 MG/DL (0.3-1.2); TOTAL PROTEIN 3.8 G/DL (5.7-8.2)
[2022-05-27] MEDS ORDERED: LR 500 ML IV ONE (09:00)
[2022-05-27] MEDS ORDERED: LIDOCAINE 1% MDV 20ML VIAL As Ordered ONE (11:16)
[2022-05-27] MEDS: LR 750 ML IV SCH ×2 (17:17→21:15)
[2022-05-27] MEDS: SENNA 8.6 MG TAB (SENOKOT) PO SCH (21:14)
[2022-05-28 04:00] VITALS: BP 121/63
[2022-05-28 04:52] LABS: HEMATOCRIT 25.5 % (42.0-52.0); HEMOGLOBIN 8.3 g/dl (13.5-17.5); MEAN CORPUSCULAR HGB CONC 32.5 g/dl (32.0-36.5); MEAN CORPUSCULAR VOLUME 86.1 fl (80.0-96.0); RED BLOOD COUNT 2.96 10^6/uL (4.30-6.10); WHITE BLOOD COUNT 1.3 10^3/uL (4.0-10.0)
[2022-05-28] MEDS: LR 750 ML IV SCH ×3 (05:02→18:35)
[2022-05-28 05:18] LABS: CALCIUM LEVEL 7.4 MG/DL (8.3-10.6); CREATININE FOR GFR 1.41 MG/DL (0.70-1.30); GLOMERULAR FILTRATION RATE 52.7 (>42); POTASSIUM SERUM 3.7 MMOL/L (3.5-5.1)
[2022-05-28 05:21] LABS: PLATELET COUNT, AUTOMATED 42 10^3/uL (150-450)
[2022-05-28] MEDS ORDERED: K-PHOS NEUTRAL 250MG TABLET (SOD.PHOSPHATE/POT.PHOSPHATE) PO SCH (06:00)
[2022-05-28 06:03] LABS: EOSINOPHILS 1 % (0-3); LYMPHOCYTES 5 % (16-44); METAMYELOCYTES 1 % (0-0); MONOCYTES 2 % (0-5); MYELOCYTES 3 % (0-0); NEUTROPHILS 81 % (28-66); PROMYELOCYTES 1 % (0-0)
[2022-05-28 06:04] LABS: BLAST CELLS 5 % (0-0); PLATELET ESTIMATE DECREASED (NORMAL)
[2022-05-28 06:05] LABS: ANISOCYTOSIS 1+; OVALOCYTES 2+
[2022-05-28 07:36] VITALS: BP 115/57
[2022-05-28] MEDS: LEVALBUTEROL 1.25MG 0.5ML CONCENTRATE NEB NEB SCH ×4 (08:50→19:41)
[2022-05-28] MEDS: LACTOBACILLUS ACIDOPHILUS CAP (BACID) PO SCH ×2 (08:59→18:34)
[2022-05-28] MEDS: DRONABINOL 2.5MG CAP (MARINOL) PO SCH ×3 (08:59→17:30)
[2022-05-28] MEDS: VITAMIN D 1,000 INTERNATIONAL UNITS TABLET PO SCH (08:59)
[2022-05-28] MEDS: DOCUSATE SODIUM 100MG CAPSULE PO SCH ×2 (08:59→20:27)
[2022-05-28] MEDS: OMEPRAZOLE SUSPENSION 20MG 10ML ORAL SYRINGE PO SCH (09:00)
[2022-05-28] MEDS: OYSTER SHELL CALCIUM 500 MG TAB PO SCH (09:00)
[2022-05-28] MEDS: ACYCLOVIR 200 MG CAPSULE PO SCH ×2 (09:00→20:26)
[2022-05-28] MEDS: DIGOXIN 0.125 MG TAB PO SCH (09:00)
[2022-05-28 09:28] VITALS: BP 100/53
[2022-05-28 10:22] LABS: MAGNESIUM LEVEL 1.4 MG/DL (1.8-2.4); PHOSPHORUS LEVEL 2.2 MG/DL (2.4-5.1)
[2022-05-28 10:56] VITALS: BP 122/71
[2022-05-28] MEDS ORDERED: MAG SULF 1GM/100ML (MAG RUN) 1 GM in IV 1 EA IV ONE (11:00)
[2022-05-28] MEDS: METOPROLOL TART 25 MG TABLET PO SCH ×2 (11:13→20:26)
[2022-05-28 11:18] LABS: HEMATOCRIT 26.3 % (42.0-52.0); HEMOGLOBIN 8.5 g/dl (13.5-17.5); MEAN CORPUSCULAR HEMOGLOBIN 27.8 pg (27.0-33.0); MEAN CORPUSCULAR HGB CONC 32.3 g/dl (32.0-36.5); MEAN CORPUSCULAR VOLUME 85.9 fl (80.0-96.0); RED BLOOD COUNT 3.06 10^6/uL (4.30-6.10); WHITE BLOOD COUNT 1.2 10^3/uL (4.0-10.0)
[2022-05-28 11:19] LABS: PLATELET COUNT, AUTOMATED 57 10^3/uL (150-450)
[2022-05-28] MEDS ORDERED: LIDOCAINE 1% MDV 20ML VIAL As Ordered ONE (11:39)
[2022-05-28] MEDS ORDERED: POTASSIUM PHOSPHATE INJ 15 MMOL in D5W 250 ML IV ONE (12:00)
[2022-05-28 16:01] VITALS: BP 104/54
[2022-05-28 17:05] LABS: CALCIUM LEVEL 7.3 MG/DL (8.3-10.6); CREATININE FOR GFR 1.32 MG/DL (0.70-1.30); GLOMERULAR FILTRATION RATE 56.9 (>42); POTASSIUM SERUM 3.4 MMOL/L (3.5-5.1)
[2022-05-28] MEDS: K-PHOS NEUTRAL 250MG TABLET (SOD.PHOSPHATE/POT.PHOSPHATE) PO SCH (19:09)
[2022-05-28 20:00] VITALS: BP 106/53
[2022-05-28] MEDS ORDERED: POTASSIUM CHLORIDE 10% LIQ 20MEQ/15ML UDC PO ONE (20:05)
[2022-05-28] MEDS: SENNA 8.6 MG TAB (SENOKOT) PO SCH (20:27)
[2022-05-29] MEDS: LR 750 ML IV SCH ×2 (00:19→11:52)
[2022-05-29 04:00] VITALS: BP 121/72
[2022-05-29 06:00] VITALS: BP 118/74
[2022-05-29 06:22] LABS: HEMATOCRIT 22.9 % (42.0-52.0); HEMOGLOBIN 7.6 g/dl (13.5-17.5); LYMPH # 0.1 10^3/uL (1.5-5.0); LYMPH % 12.5 % (24.0-44.0); MEAN CORPUSCULAR HEMOGLOBIN 28.6 pg (27.0-33.0); MEAN CORPUSCULAR HGB CONC 33.2 g/dl (32.0-36.5); MEAN CORPUSCULAR VOLUME 86.1 fl (80.0-96.0); MONO # 0.1 10^3/uL (0.0-0.8); MONO % 5.2 % (2.0-8.0); RED BLOOD COUNT 2.66 10^6/uL (4.30-6.10)
[2022-05-29 06:32] LABS: MAGNESIUM LEVEL 1.3 MG/DL (1.8-2.4)
[2022-05-29 06:41] LABS: ALBUMIN 1.5 G/DL (3.2-5.2); ALKALINE PHOSPHATASE 149 U/L (46-116); ALT/SGPT 19 U/L (7.0-40); AST/SGOT 23 U/L (<34); BILIRUBIN,TOTAL 1.1 MG/DL (0.3-1.2); BLOOD UREA NITROGEN 33 MG/DL (9-23); CALCIUM LEVEL 6.9 MG/DL (8.3-10.6); CARBON DIOXIDE LEVEL 35 MMOL/L (20-31); CHLORIDE LEVEL 100 MMOL/L (98-107); CREATININE FOR GFR 1.17 MG/DL (0.70-1.30); GLOMERULAR FILTRATION RATE > 60.0 (>42); GLUCOSE, FASTING 91 MG/DL (74-106); PHOSPHORUS LEVEL 2.5 MG/DL (2.4-5.1); POTASSIUM SERUM 3.2 MMOL/L (3.5-5.1); SODIUM LEVEL 140 MMOL/L (136-145); TOTAL PROTEIN 3.4 G/DL (5.7-8.2)
[2022-05-29] MEDS: K-PHOS NEUTRAL 250MG TABLET (SOD.PHOSPHATE/POT.PHOSPHATE) PO SCH ×2 (06:49→17:44)
[2022-05-29 07:04] LABS: NEUTROPHILS # 0.7 10^3/uL (1.5-8.5); PLATELET COUNT, AUTOMATED 42 10^3/uL (150-450)
[2022-05-29] MEDS: LEVALBUTEROL 1.25MG 0.5ML CONCENTRATE NEB NEB SCH ×4 (07:42→19:27)
[2022-05-29 08:28] VITALS: BP 114/56
[2022-05-29] MEDS: OMEPRAZOLE SUSPENSION 20MG 10ML ORAL SYRINGE PO SCH (08:57)
[2022-05-29] MEDS: ACYCLOVIR 200 MG CAPSULE PO SCH ×2 (09:00→20:16)
[2022-05-29] MEDS ORDERED: MAG SULF 1GM/100ML (MAG RUN) 1 GM in IV 1 EA IV ONE (09:00)
[2022-05-29] MEDS: METOPROLOL TART 25 MG TABLET PO SCH ×2 (09:00→20:17)
[2022-05-29] MEDS: OYSTER SHELL CALCIUM 500 MG TAB PO SCH (09:00)
[2022-05-29] MEDS: FERROUS SULFATE 325MG TAB PO SCH (09:00)
[2022-05-29] MEDS: MAGNESIUM OXIDE 400MG TAB (MAG-OX) PO SCH ×2 (09:00→20:17)
[2022-05-29] MEDS: VITAMIN D 1,000 INTERNATIONAL UNITS TABLET PO SCH (09:00)
[2022-05-29] MEDS: LACTOBACILLUS ACIDOPHILUS CAP (BACID) PO SCH ×2 (09:00→17:44)
[2022-05-29] MEDS: DOCUSATE SODIUM 100MG CAPSULE PO SCH ×2 (09:00→20:13)
[2022-05-29] MEDS ORDERED: APIXABAN 5 MG TAB (ELIQUIS) PO SCH (09:00)
[2022-05-29] MEDS ORDERED: POTASSIUM CHLORIDE 10% LIQ 20MEQ/15ML UDC PO ONE (09:00)
[2022-05-29] MEDS: DIGOXIN 0.125 MG TAB PO SCH (09:01)
[2022-05-29] MEDS: ATORVASTATIN 20 MG TAB PO SCH (09:01)
[2022-05-29] MEDS: FILGRASTIM 480 MCG/0.8 ML SYRINGE **SC ADMINISTRATION ONLY SC SCH (11:52)
[2022-05-29 17:00] VITALS: BP 111/63
[2022-05-29 20:00] VITALS: BP 111/73
[2022-05-29] MEDS: SENNA 8.6 MG TAB (SENOKOT) PO SCH (20:17)
[2022-05-30] VITALS: BP 96/55
[2022-05-30] MEDS: MAG SULF 1GM/100ML (MAG RUN) 1 GM in IV 1 EA IV SCH ×4 (02:53→06:16)
[2022-05-30] MEDS: K-PHOS NEUTRAL 250MG TABLET (SOD.PHOSPHATE/POT.PHOSPHATE) PO SCH (05:12)
[2022-05-30 06:00] LABS: BASO % 0.5 % (0.0-1.0); EOS % 0.5 % (0.0-3.0); LYMPH # 0.1 10^3/uL (1.5-5.0); LYMPH % 4.4 % (24.0-44.0); MEAN CORPUSCULAR HEMOGLOBIN 27.7 pg (27.0-33.0); MEAN CORPUSCULAR VOLUME 86.5 fl (80.0-96.0); MONO # 0.2 10^3/uL (0.0-0.8); MONO % 8.7 % (2.0-8.0); NEUTROPHILS # 1.5 10^3/uL (1.5-8.5); NEUTROPHILS % 70.4 % (36.0-66.0); RED BLOOD COUNT 2.89 10^6/uL (4.30-6.10); WHITE BLOOD COUNT 2.1 10^3/uL (4.0-10.0)
[2022-05-30 06:09] LABS: PLATELET COUNT, AUTOMATED 40 10^3/uL (150-450)
[2022-05-30 06:33] LABS: ALBUMIN 1.5 G/DL (3.2-5.2); ALKALINE PHOSPHATASE 124 U/L (46-116); ALT/SGPT 19 U/L (7.0-40); AST/SGOT 26 U/L (<34); BLOOD UREA NITROGEN 27 MG/DL (9-23); CALCIUM LEVEL 6.7 MG/DL (8.3-10.6); CARBON DIOXIDE LEVEL 32 MMOL/L (20-31); CHLORIDE LEVEL 97 MMOL/L (98-107); CREATININE FOR GFR 1.13 MG/DL (0.70-1.30); GLOMERULAR FILTRATION RATE > 60.0 (>42); GLUCOSE, FASTING 126 MG/DL (74-106); MAGNESIUM LEVEL 2.3 MG/DL (1.8-2.4); PHOSPHORUS LEVEL 2.1 MG/DL (2.4-5.1); POTASSIUM SERUM 3.2 MMOL/L (3.5-5.1); SODIUM LEVEL 136 MMOL/L (136-145); TOTAL PROTEIN 3.6 G/DL (5.7-8.2)
[2022-05-30] MEDS ORDERED: KCL 10MEQ/100ML SWI (KRUN) 10 MEQ in IV 1 EA IV SCH ×2 (06:50→08:00)
[2022-05-30] MEDS: LEVALBUTEROL 1.25MG 0.5ML CONCENTRATE NEB NEB SCH ×4 (07:10→19:44)
[2022-05-30 08:00] VITALS: BP 112/58
[2022-05-30] MEDS ORDERED: POTASSIUM CHLORIDE 10% LIQ 20MEQ/15ML UDC PO ONE (08:00)
[2022-05-30] MEDS: LACTOBACILLUS ACIDOPHILUS CAP (BACID) PO SCH ×2 (08:21→17:35)
[2022-05-30] MEDS: DIGOXIN 0.125 MG TAB PO SCH (08:22)
[2022-05-30] MEDS: VITAMIN D 1,000 INTERNATIONAL UNITS TABLET PO SCH (08:22)
[2022-05-30] MEDS: OYSTER SHELL CALCIUM 500 MG TAB PO SCH (08:22)
[2022-05-30] MEDS: ACYCLOVIR 200 MG CAPSULE PO SCH ×2 (08:23→20:47)
[2022-05-30] MEDS: METOPROLOL TART 25 MG TABLET PO SCH ×2 (08:23→20:47)
[2022-05-30] MEDS: OMEPRAZOLE SUSPENSION 20MG 10ML ORAL SYRINGE PO SCH (08:24)
[2022-05-30] MEDS: MAGNESIUM OXIDE 400MG TAB (MAG-OX) PO SCH ×2 (08:24→20:47)
[2022-05-30] MEDS: DOCUSATE SODIUM 100MG CAPSULE PO SCH (08:25)
[2022-05-30] MEDS ORDERED: METOPROLOL TART 12.5 MG PER 1/2 TAB PO ONE (08:35)
[2022-05-30] MEDS: FILGRASTIM 480 MCG/0.8 ML SYRINGE **SC ADMINISTRATION ONLY SC SCH (09:47)
[2022-05-30] MEDS ORDERED: POTASSIUM PHOSPHATE INJ 20 MMOL in D5W 250 ML IV ONE ×2 (10:00→14:00)
[2022-05-30 11:33] VITALS: BP 115/56
[2022-05-30 16:35] VITALS: BP 118/65
[2022-05-30 20:00] VITALS: BP 113/53
[2022-05-31] VITALS: BP 116/56
[2022-05-31 04:00] VITALS: BP 107/67
[2022-05-31 05:44] LABS: BASO % 0.5 % (0.0-1.0); EOS % 0.5 % (0.0-3.0); HEMATOCRIT 21.5 % (42.0-52.0); LYMPH # 0.1 10^3/uL (1.5-5.0); LYMPH % 3.3 % (24.0-44.0); MEAN CORPUSCULAR HEMOGLOBIN 26.9 pg (27.0-33.0); MEAN CORPUSCULAR HGB CONC 31.6 g/dl (32.0-36.5); MONO # 0.2 10^3/uL (0.0-0.8); MONO % 7.5 % (2.0-8.0); NEUTROPHILS # 1.2 10^3/uL (1.5-8.5); RED BLOOD COUNT 2.53 10^6/uL (4.30-6.10); WHITE BLOOD COUNT 2.1 10^3/uL (4.0-10.0)
[2022-05-31 05:49] LABS: HEMOGLOBIN 6.8 g/dl (13.5-17.5)
[2022-05-31 05:50] LABS: PLATELET COUNT, AUTOMATED 39 10^3/uL (150-450)
[2022-05-31 06:07] LABS: MAGNESIUM LEVEL 1.8 MG/DL (1.8-2.4)
[2022-05-31 06:13] LABS: ALBUMIN 1.3 G/DL (3.2-5.2); ALKALINE PHOSPHATASE 105 U/L (46-116); ALT/SGPT 16 U/L (7.0-40); AST/SGOT 21 U/L (<34); BILIRUBIN,TOTAL 0.9 MG/DL (0.3-1.2); BLOOD UREA NITROGEN 24 MG/DL (9-23); CALCIUM LEVEL 6.6 MG/DL (8.3-10.6); CARBON DIOXIDE LEVEL 32 MMOL/L (20-31); CHLORIDE LEVEL 95 MMOL/L (98-107); CREATININE FOR GFR 1.07 MG/DL (0.70-1.30); GLOMERULAR FILTRATION RATE > 60.0 (>42); GLUCOSE, FASTING 99 MG/DL (74-106); PHOSPHORUS LEVEL 2.3 MG/DL (2.4-5.1); POTASSIUM SERUM 3.2 MMOL/L (3.5-5.1); SODIUM LEVEL 134 MMOL/L (136-145); TOTAL PROTEIN 3.3 G/DL (5.7-8.2)
[2022-05-31] MEDS ORDERED: KCL 10MEQ/100ML SWI (KRUN) 10 MEQ in IV 1 EA IV ONE (07:00)
[2022-05-31] MEDS: LEVALBUTEROL 1.25MG 0.5ML CONCENTRATE NEB NEB SCH ×4 (07:52→19:37)
[2022-05-31 08:09] VITALS: BP 115/60
[2022-05-31] MEDS: OMEPRAZOLE SUSPENSION 20MG 10ML ORAL SYRINGE PO SCH (08:11)
[2022-05-31] MEDS: LACTOBACILLUS ACIDOPHILUS CAP (BACID) PO SCH ×2 (08:12→18:15)
[2022-05-31] MEDS: ATORVASTATIN 20 MG TAB PO SCH (08:12)
[2022-05-31] MEDS: FERROUS SULFATE 325MG TAB PO SCH (08:12)
[2022-05-31] MEDS: ACYCLOVIR 200 MG CAPSULE PO SCH ×2 (08:12→21:19)
[2022-05-31] MEDS: VITAMIN D 1,000 INTERNATIONAL UNITS TABLET PO SCH (08:12)
[2022-05-31] MEDS: MAGNESIUM OXIDE 400MG TAB (MAG-OX) PO SCH ×2 (08:13→21:19)
[2022-05-31] MEDS: OYSTER SHELL CALCIUM 500 MG TAB PO SCH (08:13)
[2022-05-31] MEDS: DIGOXIN 0.125 MG TAB PO SCH (08:13)
[2022-05-31] MEDS: METOPROLOL TART 25 MG TABLET PO SCH ×2 (08:14→21:19)
[2022-05-31 08:33] LABS: BASO % 1.2 % (0.0-1.0); EOS % 0.4 % (0.0-3.0); HEMATOCRIT 25.5 % (42.0-52.0); HEMOGLOBIN 8.2 g/dl (13.5-17.5); LYMPH # 0.3 10^3/uL (1.5-5.0); MEAN CORPUSCULAR HEMOGLOBIN 27.7 pg (27.0-33.0); MEAN CORPUSCULAR HGB CONC 32.2 g/dl (32.0-36.5); MEAN CORPUSCULAR VOLUME 86.1 fl (80.0-96.0); MONO # 0.1 10^3/uL (0.0-0.8); NEUTROPHILS # 2.1 10^3/uL (1.5-8.5); RED BLOOD COUNT 2.96 10^6/uL (4.30-6.10); WHITE BLOOD COUNT 2.5 10^3/uL (4.0-10.0)
[2022-05-31 08:34] LABS: PLATELET COUNT, AUTOMATED 38 10^3/uL (150-450)
[2022-05-31] MEDS ORDERED: POTASSIUM PHOSPHATE INJ 15 MMOL in D5W 250 ML IV ONE (09:00)
[2022-05-31 12:00] VITALS: BP 109/54
[2022-05-31 16:13] VITALS: BP 113/56
[2022-05-31] MEDS: NS 1,000 ML IV SCH (18:20)
[2022-05-31 20:00] VITALS: BP 103/56
[2022-06-01 04:00] VITALS: BP 103/55
[2022-06-01 05:01] LABS: BASO % 0.4 % (0.0-1.0); EOS % 0.4 % (0.0-3.0); HEMATOCRIT 21.3 % (42.0-52.0); HEMOGLOBIN 7.2 g/dl (13.5-17.5); LYMPH # 0.1 10^3/uL (1.5-5.0); LYMPH % 3.3 % (24.0-44.0); MEAN CORPUSCULAR HEMOGLOBIN 28.5 pg (27.0-33.0); MEAN CORPUSCULAR HGB CONC 33.8 g/dl (32.0-36.5); MEAN CORPUSCULAR VOLUME 84.2 fl (80.0-96.0); MONO # 0.2 10^3/uL (0.0-0.8); MONO % 8.5 % (2.0-8.0); NEUTROPHILS # 2.2 10^3/uL (1.5-8.5); NEUTROPHILS % 80.4 % (36.0-66.0); RED BLOOD COUNT 2.53 10^6/uL (4.30-6.10); WHITE BLOOD COUNT 2.7 10^3/uL (4.0-10.0)
[2022-06-01 05:13] LABS: PLATELET COUNT, AUTOMATED 37 10^3/uL (150-450)
[2022-06-01 05:27] LABS: MAGNESIUM LEVEL 1.7 MG/DL (1.8-2.4)
[2022-06-01 05:29] LABS: ALBUMIN 1.2 G/DL (3.2-5.2); ALKALINE PHOSPHATASE 107 U/L (46-116); ALT/SGPT 14 U/L (7.0-40); AST/SGOT 25 U/L (<34); BILIRUBIN,TOTAL 0.9 MG/DL (0.3-1.2); BLOOD UREA NITROGEN 23 MG/DL (9-23); CALCIUM LEVEL 6.4 MG/DL (8.3-10.6); CARBON DIOXIDE LEVEL 30 MMOL/L (20-31); CHLORIDE LEVEL 96 MMOL/L (98-107); CREATININE FOR GFR 1.07 MG/DL (0.70-1.30); GLOMERULAR FILTRATION RATE > 60.0 (>42); GLUCOSE, FASTING 100 MG/DL (74-106); PHOSPHORUS LEVEL 2.1 MG/DL (2.4-5.1); POTASSIUM SERUM 3.3 MMOL/L (3.5-5.1); SODIUM LEVEL 131 MMOL/L (136-145); TOTAL PROTEIN 3.3 G/DL (5.7-8.2)
[2022-06-01] MEDS ORDERED: MAG SULF 1GM/100ML (MAG RUN) 1 GM in IV 1 EA IV ONE (08:00)
[2022-06-01] MEDS: NS 1,000 ML IV SCH ×2 (08:08→21:44)
[2022-06-01 08:11] VITALS: BP 103/56
[2022-06-01] MEDS: LEVALBUTEROL 1.25MG 0.5ML CONCENTRATE NEB NEB SCH ×4 (08:29→19:59)
[2022-06-01] MEDS ORDERED: POTASSIUM CHLORIDE 10% LIQ 20MEQ/15ML UDC PO ONE (09:00)
[2022-06-01] MEDS: POTASSIUM CHLORIDE 10% LIQ 20MEQ/15ML UDC PO SCH ×2 (09:07→21:46)
[2022-06-01] MEDS: OMEPRAZOLE SUSPENSION 20MG 10ML ORAL SYRINGE PO SCH (09:07)
[2022-06-01] MEDS: ACYCLOVIR 200 MG CAPSULE PO SCH ×2 (09:09→21:45)
[2022-06-01] MEDS: K-PHOS NEUTRAL 250MG TABLET (SOD.PHOSPHATE/POT.PHOSPHATE) PO SCH ×2 (09:09→21:45)
[2022-06-01] MEDS: VITAMIN D 1,000 INTERNATIONAL UNITS TABLET PO SCH (09:10)
[2022-06-01] MEDS: LACTOBACILLUS ACIDOPHILUS CAP (BACID) PO SCH ×2 (09:10→18:05)
[2022-06-01] MEDS: OYSTER SHELL CALCIUM 500 MG TAB PO SCH (09:10)
[2022-06-01] MEDS: DIGOXIN 0.125 MG TAB PO SCH (09:11)
[2022-06-01] MEDS: MAGNESIUM OXIDE 400MG TAB (MAG-OX) PO SCH ×2 (09:11→21:47)
[2022-06-01] MEDS: METOPROLOL TART 25 MG TABLET PO SCH ×2 (09:11→21:45)
[2022-06-01 12:00] VITALS: BP 105/62
[2022-06-01 13:12] LABS: BASO % 0.3 % (0.0-1.0); EOS % 0.3 % (0.0-3.0); HEMATOCRIT 26.2 % (42.0-52.0); HEMOGLOBIN 8.6 g/dl (13.5-17.5); LYMPH # 0.1 10^3/uL (1.5-5.0); LYMPH % 3.8 % (24.0-44.0); MEAN CORPUSCULAR HEMOGLOBIN 28.2 pg (27.0-33.0); MEAN CORPUSCULAR HGB CONC 32.8 g/dl (32.0-36.5); MEAN CORPUSCULAR VOLUME 85.9 fl (80.0-96.0); MONO # 0.3 10^3/uL (0.0-0.8); MONO % 7.2 % (2.0-8.0); NEUTROPHILS # 2.9 10^3/uL (1.5-8.5); NEUTROPHILS % 77.7 % (36.0-66.0); RED BLOOD COUNT 3.05 10^6/uL (4.30-6.10); WHITE BLOOD COUNT 3.7 10^3/uL (4.0-10.0)
[2022-06-01 13:13] LABS: PLATELET COUNT, AUTOMATED 42 10^3/uL (150-450)
[2022-06-01 20:08] VITALS: BP 105/58
[2022-06-02] VITALS (10 sets, daily range): BP systolic 93–111; BP diastolic 52–57
[2022-06-02] MEDS: NS 1,000 ML IV SCH ×3 (06:13→23:31)
[2022-06-02 06:20] LABS: HEMATOCRIT 21.7 % (42.0-52.0); LYMPH # 0.3 10^3/uL (1.5-5.0); LYMPH % 8.6 % (24.0-44.0); MEAN CORPUSCULAR HEMOGLOBIN 27.7 pg (27.0-33.0); MEAN CORPUSCULAR HGB CONC 32.3 g/dl (32.0-36.5); MEAN CORPUSCULAR VOLUME 85.8 fl (80.0-96.0); MONO # 0.2 10^3/uL (0.0-0.8); MONO % 6.2 % (2.0-8.0); NEUTROPHILS # 2.3 10^3/uL (1.5-8.5); NEUTROPHILS % 78.4 % (36.0-66.0); RED BLOOD COUNT 2.53 10^6/uL (4.30-6.10); WHITE BLOOD COUNT 2.9 10^3/uL (4.0-10.0)
[2022-06-02 06:22] LABS: PLATELET COUNT, AUTOMATED 40 10^3/uL (150-450)
[2022-06-02 06:53] LABS: MAGNESIUM LEVEL 1.8 MG/DL (1.8-2.4)
[2022-06-02 06:57] LABS: ALBUMIN 1.2 G/DL (3.2-5.2); ALKALINE PHOSPHATASE 108 U/L (46-116); ALT/SGPT 16 U/L (7.0-40); AST/SGOT 28 U/L (<34); BILIRUBIN,TOTAL 0.8 MG/DL (0.3-1.2); BLOOD UREA NITROGEN 28 MG/DL (9-23); CALCIUM LEVEL 6.5 MG/DL (8.3-10.6); CARBON DIOXIDE LEVEL 29 MMOL/L (20-31); CHLORIDE LEVEL 98 MMOL/L (98-107); CREATININE FOR GFR 1.15 MG/DL (0.70-1.30); GLOMERULAR FILTRATION RATE > 60.0 (>42); GLUCOSE, FASTING 111 MG/DL (74-106); PHOSPHORUS LEVEL 2.2 MG/DL (2.4-5.1); POTASSIUM SERUM 3.9 MMOL/L (3.5-5.1); SODIUM LEVEL 135 MMOL/L (136-145); TOTAL PROTEIN 3.1 G/DL (5.7-8.2)
[2022-06-02] MEDS: LEVALBUTEROL 1.25MG 0.5ML CONCENTRATE NEB NEB SCH ×4 (08:04→19:48)
[2022-06-02] MEDS: METOPROLOL TART 25 MG TABLET PO SCH (08:26)
[2022-06-02] MEDS: FINASTERIDE 5MG TAB PO SCH (09:00)
[2022-06-02] MEDS: MAGNESIUM OXIDE 400MG TAB (MAG-OX) PO SCH (09:00)
[2022-06-02] MEDS ORDERED: FERROUS SULFATE 300MG/5ML UDC LIQUID PO SCH (09:00)
[2022-06-02] MEDS ORDERED: POTASSIUM PHOSPHATE INJ 20 MMOL in D5W 250 ML IV ONE (10:00)
[2022-06-02] MEDS: POTASSIUM CHLORIDE 10% LIQ 20MEQ/15ML UDC PO SCH (10:18)
[2022-06-02] MEDS: OMEPRAZOLE SUSPENSION 20MG 10ML ORAL SYRINGE PO SCH (10:22)
[2022-06-02] MEDS: OYSTER SHELL CALCIUM 500 MG TAB PO SCH (10:30)
[2022-06-02] MEDS: ACYCLOVIR 200 MG CAPSULE PO SCH (10:31)
[2022-06-02] MEDS: K-PHOS NEUTRAL 250MG TABLET (SOD.PHOSPHATE/POT.PHOSPHATE) PO SCH (10:31)
[2022-06-02] MEDS: LACTOBACILLUS ACIDOPHILUS CAP (BACID) PO SCH (10:31)
[2022-06-02] MEDS: DIGOXIN 0.125 MG TAB PO SCH (10:32)
[2022-06-02] MEDS: VITAMIN D 1,000 INTERNATIONAL UNITS TABLET PO SCH (10:32)
[2022-06-02 13:13] LABS: HEMATOCRIT 23.4 % (42.0-52.0); HEMOGLOBIN 7.4 g/dl (13.5-17.5); MEAN CORPUSCULAR HEMOGLOBIN 27.3 pg (27.0-33.0); MEAN CORPUSCULAR HGB CONC 31.6 g/dl (32.0-36.5); MEAN CORPUSCULAR VOLUME 86.3 fl (80.0-96.0); RED BLOOD COUNT 2.71 10^6/uL (4.30-6.10); WHITE BLOOD COUNT 3.4 10^3/uL (4.0-10.0)
[2022-06-02 13:23] LABS: PLATELET COUNT, AUTOMATED 42 10^3/uL (150-450)
[2022-06-02] MEDS ORDERED: ACETAMINOPHEN TAB 650MG DOSE (2X325MG) PO PRN (16:20)
[2022-06-02] MEDS ORDERED: ACETAMINOPHEN 650MG SUPP PR PRN (16:30)
[2022-06-02 17:46] LABS: APPEARANCE, URINE MANUAL CLEAR (CLEAR); COLOR, URINE MANUAL YELLOW (YELLOW)
[2022-06-02 17:47] LABS: BILIRUBIN, URINE MANUAL NEGATIVE (NEGATIVE); GLUCOSE, URINE (UA) MANUAL NEGATIVE (NEGATIVE); KETONE, URINE MANUAL NEGATIVE (NEGATIVE); LEUKOCYTE ESTERASE, URINE MAN NEGATIVE (NEGATIVE); NITRITE, URINE MANUAL NEGATIVE (NEGATIVE); PROTEIN, URINE MANUAL 1+ mg/dL (NEGATIVE); UROBILINOGEN, URINE MANUAL NORMAL (NORMAL)
[2022-06-02 17:48] LABS: BLOOD URINE MANUAL TRACE (NEGATIVE)
[2022-06-02] MEDS ORDERED: ONDANSETRON 4MG 2ML VIAL IV PRN (17:55)
[2022-06-02 17:59] LABS: AMORPHOUS SEDIMENT, URINE SMALL AMOUNT (NEGATIVE); BACTERIA, URINE NONE SEEN; HYALINE CAST, URINE NONE SEEN /lpf (0-1); MUCUS, URINE LARGE AMOUNT (NEGATIVE); SQUAMOUS EPITHELIAL CELL URINE SMALL AMOUNT /hpf (SMALL AMT); TRANSITIONAL EPI CELLS, URINE SMALL AMOUNT /hpf; WBC, URINE 0-1 /hpf (0-3)
[2022-06-02] MEDS: PIPERACILLIN/TAZOBACTAM SOD 3.375 GM in D5W MINI-BAG PLUS 50 ML IV SCH (18:15)
[2022-06-02] MEDS ORDERED: KETOROLAC 30 MG/ML 1ML VIAL IV ONE (18:50)
[2022-06-02] MEDS ORDERED: VANCOMYCIN HCL 750 MG, VIAL MATE ADAPTER 1 EACH in D5W 250 ML IV ONE ×2 (19:00→20:00)
[2022-06-02] MEDS ORDERED: METOPROLOL TART 25 MG TABLET PO SCH (21:00)
[2022-06-02] MEDS: ACYCLOVIR 500 MG in D5W MINI-BAG PLUS 100 ML IV SCH (22:09)
[2022-06-03] MEDS: PIPERACILLIN/TAZOBACTAM SOD 3.375 GM in D5W MINI-BAG PLUS 50 ML IV SCH ×5 (00:54→23:53)
[2022-06-03 04:58] VITALS: BP 131/50
[2022-06-03 05:40] LABS: BASO % 0.4 % (0.0-1.0); EOS % 0.4 % (0.0-3.0); HEMATOCRIT 21.7 % (42.0-52.0); LYMPH # 0.1 10^3/uL (1.5-5.0); LYMPH % 2.3 % (24.0-44.0); MEAN CORPUSCULAR HEMOGLOBIN 27.5 pg (27.0-33.0); MEAN CORPUSCULAR HGB CONC 32.3 g/dl (32.0-36.5); MEAN CORPUSCULAR VOLUME 85.1 fl (80.0-96.0); MONO # 0.2 10^3/uL (0.0-0.8); NEUTROPHILS # 2.3 10^3/uL (1.5-8.5); NEUTROPHILS % 85.6 % (36.0-66.0); RED BLOOD COUNT 2.55 10^6/uL (4.30-6.10); WHITE BLOOD COUNT 2.7 10^3/uL (4.0-10.0)
[2022-06-03 05:54] LABS: PLATELET COUNT, AUTOMATED 29 10^3/uL (150-450)
[2022-06-03 06:03] LABS: MAGNESIUM LEVEL 1.4 MG/DL (1.8-2.4)
[2022-06-03 06:16] LABS: ALBUMIN 1.1 G/DL (3.2-5.2); ALKALINE PHOSPHATASE 99 U/L (46-116); ALT/SGPT 17 U/L (7.0-40); AST/SGOT 32 U/L (<34); BILIRUBIN,TOTAL 0.9 MG/DL (0.3-1.2); BLOOD UREA NITROGEN 29 MG/DL (9-23); CALCIUM LEVEL 6.3 MG/DL (8.3-10.6); CARBON DIOXIDE LEVEL 29 MMOL/L (20-31); CHLORIDE LEVEL 98 MMOL/L (98-107); CREATININE FOR GFR 1.19 MG/DL (0.70-1.30); GLOMERULAR FILTRATION RATE > 60.0 (>42); GLUCOSE, FASTING 96 MG/DL (74-106); PHOSPHORUS LEVEL 3.1 MG/DL (2.4-5.1); SODIUM LEVEL 135 MMOL/L (136-145)
[2022-06-03] MEDS: VANCOMYCIN HCL 1,000 MG, VIAL MATE ADAPTER 1 EACH in NS 250 ML IV SCH ×2 (06:37→19:20)
[2022-06-03 08:00] VITALS: BP 106/52
[2022-06-03] MEDS: LEVALBUTEROL 1.25MG 0.5ML CONCENTRATE NEB NEB SCH ×4 (08:23→19:44)
[2022-06-03] MEDS: PANTOPRAZOLE 40MG VIAL IV SCH (08:36)
[2022-06-03] MEDS: DIGOXIN INJ 0.5 MG/2 ML AMP IV SCH (08:36)
[2022-06-03] MEDS: ACYCLOVIR 500 MG in D5W MINI-BAG PLUS 100 ML IV SCH ×2 (08:36→21:00)
[2022-06-03 12:00] VITALS: BP 100/56
[2022-06-03] MEDS: NS 1,000 ML IV SCH (12:00)
[2022-06-03] MEDS: MAG SULF 1GM/100ML (MAG RUN) 1 GM in IV 1 EA IV SCH ×2 (15:12→16:15)
[2022-06-03 15:28] LABS: HEMATOCRIT 22.7 % (42.0-52.0); HEMOGLOBIN 7.2 g/dl (13.5-17.5); MEAN CORPUSCULAR HGB CONC 31.7 g/dl (32.0-36.5); RED BLOOD COUNT 2.67 10^6/uL (4.30-6.10); WHITE BLOOD COUNT 3.3 10^3/uL (4.0-10.0)
[2022-06-03 15:29] LABS: PLATELET COUNT, AUTOMATED 31 10^3/uL (150-450)
[2022-06-03 16:00] VITALS: BP 100/53
[2022-06-03 19:14] VITALS: BP 91/50
[2022-06-03 23:51] VITALS: BP 114/53
[2022-06-04] MEDS: PIPERACILLIN/TAZOBACTAM SOD 3.375 GM in D5W MINI-BAG PLUS 50 ML IV SCH ×3 (05:24→17:43)
[2022-06-04] MEDS: NS 1,000 ML IV SCH ×2 (05:24→05:31)
[2022-06-04 05:26] VITALS: BP 97/51
[2022-06-04 06:38] LABS: BASO % 0.3 % (0.0-1.0); EOS % 0.3 % (0.0-3.0); HEMATOCRIT 22.1 % (42.0-52.0); HEMOGLOBIN 7.2 g/dl (13.5-17.5); LYMPH # 0.1 10^3/uL (1.5-5.0); LYMPH % 2.5 % (24.0-44.0); MEAN CORPUSCULAR HEMOGLOBIN 27.7 pg (27.0-33.0); MEAN CORPUSCULAR HGB CONC 32.6 g/dl (32.0-36.5); MONO # 0.1 10^3/uL (0.0-0.8); MONO % 4.4 % (2.0-8.0); NEUTROPHILS # 2.8 10^3/uL (1.5-8.5); NEUTROPHILS % 87.8 % (36.0-66.0); WHITE BLOOD COUNT 3.2 10^3/uL (4.0-10.0)
[2022-06-04] MEDS: VANCOMYCIN HCL 1,000 MG, VIAL MATE ADAPTER 1 EACH in NS 250 ML IV SCH (06:47)
[2022-06-04 06:51] LABS: PLATELET COUNT, AUTOMATED 29 10^3/uL (150-450)
[2022-06-04 07:18] LABS: CALCIUM LEVEL 6.1 MG/DL (8.3-10.6); CREATININE FOR GFR 1.37 MG/DL (0.70-1.30); GLOMERULAR FILTRATION RATE 54.5 (>42); MAGNESIUM LEVEL 1.9 MG/DL (1.8-2.4); PHOSPHORUS LEVEL 3.5 MG/DL (2.4-5.1); POTASSIUM SERUM 4.3 MMOL/L (3.5-5.1); TOTAL PROTEIN 3.2 G/DL (5.7-8.2)
[2022-06-04 08:00] VITALS: BP 111/51
[2022-06-04] MEDS: LEVALBUTEROL 1.25MG 0.5ML CONCENTRATE NEB NEB SCH ×4 (08:01→19:19)
[2022-06-04] MEDS ORDERED: VANCOMYCIN HCL 750 MG, VIAL MATE ADAPTER 1 EACH in D5W 250 ML IV SCH (10:00)
[2022-06-04 11:55] VITALS: BP 117/55
[2022-06-04] MEDS: PANTOPRAZOLE 40MG VIAL IV SCH (12:34)
[2022-06-04] MEDS: ACYCLOVIR 500 MG in D5W MINI-BAG PLUS 100 ML IV SCH ×2 (12:34→22:29)
[2022-06-04] MEDS: DIGOXIN INJ 0.5 MG/2 ML AMP IV SCH (12:35)
[2022-06-04] MEDS: D5W/0.9% SODIUM CHLORIDE 1,000 ML IV SCH (13:09)
[2022-06-04] MEDS: VANCOMYCIN HCL 750 MG, VIAL MATE ADAPTER 1 EACH in D5W 250 ML IV SCH ×2 (14:04→23:49)
[2022-06-04 16:00] VITALS: BP 117/61
[2022-06-04] MEDS ORDERED: FUROSEMIDE 40MG/4ML VIAL IV ONE (17:45)
[2022-06-04 20:00] VITALS: BP 108/59
[2022-06-05] VITALS: BP 104/53
[2022-06-05] MEDS ORDERED: DIGOXIN INJ 0.5 MG/2 ML AMP IV ONE (00:45)
[2022-06-05] MEDS: PIPERACILLIN/TAZOBACTAM SOD 3.375 GM in D5W MINI-BAG PLUS 50 ML IV SCH ×3 (01:17→11:52)
[2022-06-05 04:00] VITALS: BP 118/80
[2022-06-05 05:43] LABS: MEAN CORPUSCULAR HEMOGLOBIN 27.6 pg (27.0-33.0); MEAN CORPUSCULAR HGB CONC 32.4 g/dl (32.0-36.5); MEAN CORPUSCULAR VOLUME 85.2 fl (80.0-96.0); RED BLOOD COUNT 2.43 10^6/uL (4.30-6.10)
[2022-06-05] MEDS: D5W/0.9% SODIUM CHLORIDE 1,000 ML IV SCH ×2 (05:47→15:35)
[2022-06-05 05:57] LABS: HEMATOCRIT 20.7 % (42.0-52.0); HEMOGLOBIN 6.7 g/dl (13.5-17.5)
[2022-06-05 05:58] LABS: PLATELET COUNT, AUTOMATED 27 10^3/uL (150-450)
[2022-06-05] MEDS: LEVALBUTEROL 1.25MG 0.5ML CONCENTRATE NEB NEB SCH ×4 (06:10→19:08)
[2022-06-05 06:13] LABS: CREATININE FOR GFR 1.51 MG/DL (0.70-1.30); GLOMERULAR FILTRATION RATE 48.7 (>42); POTASSIUM SERUM 3.4 MMOL/L (3.5-5.1)
[2022-06-05 07:02] LABS: BASOPHILS 1 % (0-1); EOSINOPHILS 1 % (0-3); LYMPHOCYTES 4 % (16-44); METAMYELOCYTES 6 % (0-0); MONOCYTES 2 % (0-5); MYELOCYTES 5 % (0-0); NEUTROPHILS 68 % (28-66); PLATELET ESTIMATE DECREASED (NORMAL); PROMYELOCYTES 1 % (0-0)
[2022-06-05 07:03] LABS: ANISOCYTOSIS 1+; OVALOCYTES 2+
[2022-06-05] MEDS: KCL 10MEQ/100ML SWI (KRUN) 10 MEQ in IV 1 EA IV SCH ×2 (07:44→08:11)
[2022-06-05 07:57] VITALS: BP 109/54
[2022-06-05] MEDS: PANTOPRAZOLE 40MG VIAL IV SCH (08:11)
[2022-06-05] MEDS: DIGOXIN INJ 0.5 MG/2 ML AMP IV SCH (08:11)
[2022-06-05] MEDS: ACYCLOVIR 500 MG in D5W MINI-BAG PLUS 100 ML IV SCH (08:11)
[2022-06-05] MEDS: VANCOMYCIN HCL 750 MG, VIAL MATE ADAPTER 1 EACH in D5W 250 ML IV SCH (12:00)
[2022-06-05 12:38] VITALS: BP 111/58
[2022-06-05] MEDS ORDERED: SCOPOLAMINE 1MG TRANSDERMAL PATCH TOP PRN (15:15)
[2022-06-05] MEDS ORDERED: LORazepam 1 MG TAB PO PRN (15:15)
[2022-06-05] MEDS: MORPHINE 2 MG/ML 1ML VIAL IV PRN (18:42)
[2022-06-06] MEDS: MORPHINE 10MG/0.5ML ORAL CONCENTRATE SOLUTION U/D SL PRN ×6 (04:17→22:56)
[2022-06-06] MEDS ORDERED: LORazepam 1 MG TAB PO ONE (04:35)
[2022-06-06] MEDS: MORPHINE 2 MG/ML 1ML VIAL IV PRN (05:52)
[2022-06-06] MEDS: D5W/0.9% SODIUM CHLORIDE 1,000 ML IV SCH (09:33)
[2022-06-06] MEDS: LEVALBUTEROL 1.25MG 0.5ML CONCENTRATE NEB NEB SCH ×4 (09:35→20:00)
[2022-06-06] MEDS: LORazepam 2 MG/ML VIAL IV PRN ×3 (17:45→23:30)
[2022-06-07] MEDS: MORPHINE 10MG/0.5ML ORAL CONCENTRATE SOLUTION U/D SL PRN (02:09)
== END 2022-06-07 05:37 | disposition expired | DRG 871 ==
LOC: EDBD 10:33 → M ED 10:33 → M ED INP 15:13 → EEVIPCON 15:13 → ENRESERV 16:42 → M PCU 17:40
PROVIDERS: ADMIT General Practice; ATTEND General Practice
PROC: 30233R1 Transfusion of Nonautologous Platelets into Peripheral Vein, Percutaneous Approach (ICD-10-PCS; 2022-05-21)
PROC: 0FB13ZX Excision of Right Lobe Liver, Percutaneous Approach, Diagnostic (ICD-10-PCS; 2022-05-27)
PROC: 30233N1 Transfusion of Nonautologous Red Blood Cells into Peripheral Vein, Percutaneous Approach (ICD-10-PCS; principal; 2022-05-27 13:00)
PROC: 07DR3ZX Extraction of Iliac Bone Marrow, Percutaneous Approach, Diagnostic (ICD-10-PCS; 2022-05-28)
DX: A41.9 Sepsis, unspecified organism (principal); D61.810 Antineoplastic chemotherapy induced pancytopenia; J96.01 Acute respiratory failure with hypoxia; J15.212 Pneumonia due to Methicillin resistant Staphylococcus aureus; G93.41 Metabolic encephalopathy; I50.23 Acute on chronic systolic (congestive) heart failure; E43 Unspecified severe protein-calorie malnutrition; Z94.84 Stem cells transplant status; C90.00 Multiple myeloma not having achieved remission; M87.88 Other osteonecrosis, other site; E87.1 Hypo-osmolality and hyponatremia; N17.9 Acute kidney failure, unspecified; R64 Cachexia; D84.9 Immunodeficiency, unspecified; R18.8 Other ascites; C85.10 Unspecified B-cell lymphoma, unspecified site; I47.20 Ventricular tachycardia, unspecified; I48.92 Unspecified atrial flutter; Z66 Do not resuscitate; I48.91 Unspecified atrial fibrillation; Z90.49 Acquired absence of other specified parts of digestive tract; E78.5 Hyperlipidemia, unspecified; N40.0 Benign prostatic hyperplasia without lower urinary tract symptoms; Z79.01 Long term (current) use of anticoagulants; Z79.899 Other long term (current) drug therapy; Z20.822 Contact with and (suspected) exposure to COVID-19; I95.1 Orthostatic hypotension; E06.4 Drug-induced thyroiditis; E87.6 Hypokalemia; E86.0 Dehydration; R13.10 Dysphagia, unspecified; R59.0 Localized enlarged lymph nodes; D69.6 Thrombocytopenia, unspecified; D50.9 Iron deficiency anemia, unspecified; J70.2 Acute drug-induced interstitial lung disorders; R62.7 Adult failure to thrive; E83.39 Other disorders of phosphorus metabolism; E83.42 Hypomagnesemia; E87.5 Hyperkalemia